=== PATIENT | female | born 1965 | race Caucasian/White ===

== ENCOUNTER 2021-01-23 12:13 | Outpatient (CLI) | payer OTHER, SELFPAY ==
--- NOTE | ~2021-01-23 | XR_ITS ---
EXAMINATION: XR knee RT 3V DATE: 01/23/2021 12:53 INDICATION: Right knee pain. TECHNIQUE: 3 views of right knee were obtained. COMPARISON: None. FINDINGS: Bone alignment is normal. No fracture. There is mild osteoarthritis of medial and patellofe moral compartments. No knee joint effusion. IMPRESSION: 1. Mild right knee osteoarthritis. Reviewed, dictated and finalized at location A. [employer]
== END 2021-01-23 12:14 ==
PROVIDERS: PCP Family Medicine; Visit Provider Physician Assistant
DX: M17.11 Unilateral primary osteoarthritis, right knee (principal)
CPT/HCPCS: 73562

== ENCOUNTER → 2022-03-22 13:45 | Outpatient (CLI) | payer OTHER, SELFPAY ==
--- NOTE | ~2022-03-22 | XR_ITS ---
EXAMINATION: XR thoracic spine 3V DATE: 03/22/2022 14:08 INDICATION: Dorsalgia, unspecified TECHNIQUE: AP, lateral and lateral swimmer's views of the thoracic spine were obtained. COMPARISON: None. FINDINGS: There is dextrocurvature of the upper thoracic spine. No fracture is identified. Bone align ment is normal. There is moderate loss of intervertebral disc space height at multiple levels in the thoracic spine. There is mild anterior wedging of several midthoracic vertebral bodies, likely physio logic. Small degenerative osteophytes project from the anterior endplates of multiple vertebral leeann s. IMPRESSION: 1. Moderate thoracic spondylosis without acute findings. Reviewed, dictated and finalized at location F.
== END ==
PROVIDERS: PCP Physician Assistant; Visit Provider Physician Assistant
DX: M47.814 Spondylosis without myelopathy or radiculopathy, thoracic region (principal)
CPT/HCPCS: 72072

== ENCOUNTER 2022-03-27 12:38 | Outpatient (CLI) | payer OTHER, SELFPAY ==
--- NOTE | ~2022-03-27 | CT_ITS ---
EXAMINATION:CT lung screening DATE: 03/27/2022 13:27 INDICATION: Personal history of tobacco dependence. Current smoker with 30 pack year history. TECHNIQUE: Computed tomography (CT) of the chest was performed without intravenous contrast. Automate d exposure control and iterative reconstruction technique were employed. The dose-length product (DLP ) was 60.24 mGy-cm. COMPARISON: CT abdomen and pelvis 06/21/2011 FINDINGS: There is mild emphysema. There is mild scarring at the lung apices. There is mild scarring in paraspinal right lower lobe. No pleural effusion. The heart size is normal. There are coronary art rosa isela calcifications. No pericardial effusion. There are changes of cholecystectomy. There is mild regional marketing director aria anterior wedging of multiple vertebral bodies. There is moderate thoracic spondylosis. There is d extroscoliosis of thoracic spine. IMPRESSION: 1. Lung-RADS category 2: Benign appearance or behavior. Continue annual screening with noncontrast lo w-dose chest CT in 12 months. Reviewed, dictated and finalized at location B. IMPRESSION: 1. Lung-RADS category 2: Benign appearance or behavior. Continue annual screeni ng with noncontrast low-dose chest CT in 12 months.
== END 2022-03-27 12:39 | disposition home or self-care (01) ==
PROVIDERS: PCP Physician Assistant; Visit Provider Physician Assistant
DX: Z12.2 Encounter for screening for malignant neoplasm of respiratory organs (principal); Z87.891 Personal history of nicotine dependence
CPT/HCPCS: 71271

== ENCOUNTER 2022-04-26 00:56 | Day surgery (SDC) | payer OTHER, SELFPAY ==
[2022-04-09 16:46] VITALS: BMI 22.2
--- NOTE | 2022-04-26 07:19 | PM.HPGS ---
History of Present Illness History of Present Illness Consent: Risks, benefits, and alternatives have been discussed and questions answered. Patient agrees to proceed with procedure. Chief complaint: neoplasm screening Narrative: Vanessa Calero is a 57 year old female Referred for colon cancer screening. Review of Systems Review of Systems: All systems reviewed & are unremarkable except as noted in HPI and below PMFSH Past Medical History Medical History Irritable bowel syndrome (IBS) Surgical History Surgical History History of cholecystectomy Family History Family History (Updated 03/20/22 @ 11:37 by Oralia Watson CMA) Father Hypertension Family history of elevated blood lipids Skin cancer Mother Family history of diabetes mellitus in first degree relative Family history of coronary artery disease Hypertension Sibling Pancreatitis Congestive heart failure Social History Social History Smoking packs per day: 0.5 Smoking cigarettes per day: 10.0 Years smoked: 20 Smoking pack-years: 10.00 Smoking status: Current every day smoker Tobacco type: cigarettes Alcohol intake: never Substance use: never Substance use type: does not use Living arrangements: with family Gender identity (if verbalized by the patient): Female Spiritual care concerns: No Meds Home Medications and Allergies Home Medications Medication Instructions Recorded Confirmed Type cholecalciferol (vitamin D3) 125 125 mcg PO DAILY 03/20/22 04/09/22 History mcg (5,000 unit) capsule mecobalamin (vitamin B12) 1,000 1,000 mcg PO DAILY 03/20/22 04/09/22 History mcg chewable tablet Allergies Allergy/AdvReac Type Severity Reaction Status Date / Time No Known Allergies Allergy Unknown Verified 04/26/22 08:06 Exam Resp: Auscultation: clear to auscultation bilaterally Cardio: Rate: regular rate Rhythm: regular rhythm GI: GI Palp: Yes Soft to palpation and No Tenderness to palpation present (GI) Assessment and Plan Assessment and plan (1) Colon cancer screening: Code(s): Z12.11 - Encounter for screening for malignant neoplasm of colon Status: Acute Assessment and Plan: Colonoscopy with possible biopsy or polypectomy or cautery or injection of substances.
[2022-04-26 08:07] VITALS: BP 132/86; PULSE 104; RESP 18; TEMP 36.6; O2SAT 100; BMI 21.5
[2022-04-26] MEDS: LACTATED RINGERS 1,000 ML 150 ML IV CONT (08:19)
--- NOTE | 2022-04-26 08:44 | P.PNAN_ITS ---
Anes - Initial Pre Proc Eval Procedure: Operation Date: 04/26/22 09:00 Proposed Procedures p Screening Colonoscopy - Eleno Parish MD Date/Time: 04/26/22 08:44 Surgeon: Eleno Parish MD Pre Op Diagnosis: neoplasm screening Patient Data Age: 57 Gender: F Height: 1.68 m Weight: 60.5 kg Last Vital Signs Temp 97.8 F 04/26/22 08:07 Pulse 104 H 04/26/22 08:07 Resp 18 04/26/22 08:07 BP 132/86 04/26/22 08:07 Pulse Ox 100 04/26/22 08:07 O2 Del Method Room Air 04/26/22 08:07 Allergies Allergy/AdvReac Type Severity Reaction Status Date / Time No Known Allergies Allergy Unknown Verified 04/26/22 08:06 Home Medications Medication Instructions Recorded Confirmed Type cholecalciferol (vitamin D3) 125 125 mcg PO DAILY 03/20/22 04/26/22 History mcg (5,000 unit) capsule mecobalamin (vitamin B12) 1,000 1,000 mcg PO DAILY 03/20/22 04/26/22 History mcg chewable tablet Patient hx anesthesia problems: none Family hx anesthesia problems: none Results Review: All pre-operative results and documents have been reviewed as part of the pre- operative evaluation. [facility] Past Medical History Medical History Irritable bowel syndrome (IBS) Surgical History Surgical History History of cholecystectomy Family History Family History (Updated 03/20/22 @ 11:37 by Oralia Watson CMA) Father Hypertension Family history of elevated blood lipids Skin cancer Mother Family history of diabetes mellitus in first degree relative Family history of coronary artery disease Hypertension Sibling Pancreatitis Congestive heart failure Social History Social History Smoking packs per day: 0.5 Smoking cigarettes per day: 10.0 Years smoked: 20 Smoking pack-years: 10.00 Smoking status: Current every day smoker Tobacco type: cigarettes Alcohol intake: never Substance use: never Substance use type: does not use Living arrangements: with family Gender identity (if verbalized by the patient): Female Spiritual care concerns: No Anes - Eval Final PreProcedure Day of Procedure 04/26/22 08:44 Patient weight: normal Heart: regular rate and rhythm Lungs: clear to auscultation Airway: Mallampati scale class II Neurological: alert and oriented Last oral intake: >/= 8 hours ASA classification: II Emergent: no Anesthetic plan: proceed Anesthesia type and monitoring: general GIVS and standard monitoring Results Review: All pre-operative results and documents have been reviewed as part of the pre- operative evaluation. Informed Consent: The patient's anesthetic plan and its attendant risks and benefits were discussed with the patient/family/POA. Questions were solicited and answers provided to the satisfaction of the patient/family/POA.
[2022-04-26] MEDS: SIMETHICONE ORAL SUSPENSION 20 MG/0.3 ML 30 ML BOTTLE 0.6 ML IRRIGATION (09:05)
[2022-04-26 09:15] VITALS: BP 121/71; PULSE 86; RESP 15; O2SAT 100
[2022-04-26 09:25] VITALS: BP 125/78; PULSE 85; RESP 19; O2SAT 100
[2022-04-26 09:35] VITALS: BP 131/91; PULSE 83; RESP 15; O2SAT 100
== END 2022-04-26 09:40 | disposition home or self-care (01) ==
PROVIDERS: PCP Family Medicine; Visit Provider Internal Medicine Gastroenterology
PROC: 0DJD8ZZ Inspection of Lower Intestinal Tract, Via Natural or Artificial Opening Endoscopic (ICD-10-PCS; CPT 45378; principal; 2022-04-26 09:00)
DX: Z12.11 Encounter for screening for malignant neoplasm of colon (principal); F17.210 Nicotine dependence, cigarettes, uncomplicated
CPT/HCPCS: G0121; J2704; J7120

== ENCOUNTER → 2022-05-16 13:23 | Outpatient (CLI) | payer OTHER, SELFPAY ==
--- NOTE | ~2022-05-16 | MM_ITS ---
EXAMINATION: MM screening lona BI w azucena HISTORY: Screening mammogram TECHNIQUE: Craniocaudal and mediolateral oblique 3-D tomosynthesis images were obtained and synthetic 2-D images were generated. CAD analysis was submitted and interpreted. COMPARISON: No prior mammogram is available for comparison at this institution. BREAST PARENCHYMAL COMPOSITION: There are scattered areas of fibroglandular density. FINDINGS: There is no evidence of suspicious mass, calcification, or architectural distortion to sugg est malignancy in either breast. There has been no suspicious interval change. IMPRESSION: 1. No mammographic evidence of malignancy. 2. Recommend routine screening mammography in one year. BI-RADS Category 1: Negative Reviewed, dictated and finalized at location A.
== END ==
PROVIDERS: PCP Family Medicine; Visit Provider Physician Assistant
DX: Z12.31 Encounter for screening mammogram for malignant neoplasm of breast (principal)
CPT/HCPCS: 77063; 77067

== ENCOUNTER 2023-08-17 08:06 | Emergency (ER) | payer OTHER, SELFPAY ==
--- NOTE | 2023-08-17 08:07 | ED.EAR ---
HPI - Ear Problem General Chief complaint: Ear Stated complaint: Lt Ear Irritation Time Seen by Provider: 08/17/23 08:15 Source: patient, RN notes reviewed and old records reviewed Mode of arrival: ambulatory Limitations: no limitations History of Present Illness HPI Narrative: 58-year-old female presents to the [facility] with complaints of left ear pain and noticed blood this morning. Started with pain yesterday and a popping sensation. Denies fevers. Reports having COVID on June 25 states she has had some upper respiratory symptoms since. Related Data Home Medications Medication Instructions Recorded Confirmed cholecalciferol (vitamin D3) 125 125 mcg PO DAILY 03/20/22 08/17/23 mcg (5,000 unit) capsule mecobalamin (vitamin B12) 1,000 1,000 mcg PO DAILY 03/20/22 08/17/23 mcg chewable tablet Allergies Allergy/AdvReac Type Severity Reaction Status Date / Time No Known Allergies Allergy Unknown Verified 08/17/23 08:07 Review of Systems Review of Systems: All systems reviewed & are unremarkable except as noted in HPI and below Constitutional: Constitutional: Reports no additional constitutional complaints Eyes: Eyes: Reports no additional eye complaints ENT: Reports as per HPI and Reports otalgia (left) Cardiovascular: Cardiovascular: Reports no additional cardiovascular complaints, Denies chest pain and Denies dyspnea Respiratory: Respiratory: Reports no additional respiratory complaints, Denies chest congestion, Denies cough and Denies dyspnea Gastrointestinal: Gastrointestinal: Reports no additional gastrointestinal complaints, Denies abdominal pain, Denies nausea and Denies vomiting Musculoskeletal: Musculoskeletal: Reports no additional musculoskeletal complaints Integumentary/Breasts: Skin/Breast: Reports system reviewed and no additional complaints, except as docu Neurologic: Reports system reviewed and no additional complaints, except as documented Psychiatric: Psychiatric: Reports no additional psychiatric complaints Allergic/Immunologic: Allergic/Immunologic: Reports no additional allergic/immunologic complaints [facility] Past Medical History Medical History Irritable bowel syndrome (IBS) Surgical History Surgical History History of cholecystectomy Family History Family History Father Hypertension Family history of elevated blood lipids Skin cancer Mother Family history of diabetes mellitus in first degree relative Family history of coronary artery disease Hypertension Sibling Pancreatitis Congestive heart failure Social History Social History Smoking packs per day: 0.5 Smoking cigarettes per day: 10.0 Years smoked: 20 Smoking pack-years: 10.00 Smoking status: Current every day smoker Tobacco type: cigarettes Alcohol intake: never Substance use: never Substance use type: does not use Lack of Transportation: No Lack of Food: Never True Current Housing: I Have Housing Concerned About Future Housing: No Difficulty Paying Gas/Electric Bills: YES Difficulty Paying for Meds: No Currently Unemployed: No Education: High School Diploma/GED Difficulty w/ Childcare or Family Care: No Living arrangements: with family Occupation/Education: occupation Gender identity (if verbalized by the patient): Female Spiritual care concerns: No Comments At the time of my signature, I reviewed and agree with the nursing past medical, surgical, social, and family history. There is no relevant family history pertinent to the patient complaint. Exam Const: General: cooperative, healthy appearing, comfortable, no acute distress, well developed, alert and well nourished Nutritional Appearance: well nourished Orientation/co
[2023-08-17 08:15] VITALS: BP 131/91; PULSE 83; RESP 18; TEMP 36.5; O2SAT 100
== END 2023-08-17 08:28 | disposition home or self-care (01) ==
PROVIDERS: Emergency Provider Nurse Practitioner; PCP Family Medicine
DX: H60.502 Unspecified acute noninfective otitis externa, left ear (principal); S00.412A Abrasion of left ear, initial encounter; H65.02 Acute serous otitis media, left ear; F17.210 Nicotine dependence, cigarettes, uncomplicated; X58.XXXA Exposure to other specified factors, initial encounter
CPT/HCPCS: 99213; G0463

== ENCOUNTER 2025-04-10 03:14 | Inpatient (IN) | payer OTHER, SELFPAY ==
[2025-04-10] VITALS (30 sets, daily range): BP systolic 123–146; BP diastolic 73–96; PULSE 89–117; RESP 14–21; TEMP 36.4–37.4; O2SAT 90–100; BMI 23.3
--- NOTE | 2025-04-10 | ECHO_ITS ---
Patient Info Name: Vanessa Calero Age: 60 years : 1965 Gender: Female Ht: 63 in Wt: 140 lbs BSA: 1.69 m2 HR: 91 bpm BP: 133 / 80 mmHg Heart Rhythm: Sinus Rhythm Technical Quality: Fair Exam Date: 04/10/2025 8:25 AM Patient Status: I Admit Date: 04/10/2025 Exam Type: CA echo doppler color flow Complete two-dimensional, color flow and Doppler transthoracic echocardiogram is performed. Staff Referring Physician: Trevor Edouard Siderographist: Steff Boo Attending Provider: John Martinez Summary 1. Complete two-dimensional, color flow and Doppler transthoracic echocardiogram is performed. 2. Left ventricular chamber dimension is normal. 3. Left ventricular systolic function is severely reduced, estimated at 30-35. 4. There is mildly increased left ventricular wall thickness. 5. The left ventricular diastolic function is grade I diastolic dysfunction. 6. The apex, mid inferoseptal, and mid anteroseptal are akinetic. 7. The mid inferior wall, mid anterior wall, mid anterolateral wall, and mid inferolateral wall are hypokinetic. 8. Left atrial chamber dimension is mildly enlarged. 9. There is mild mitral valve regurgitation. 10. The mitral valve has thickened leaflets. 11. There is moderate tricuspid valve regurgitation. 12. Mild pulmonary hypertension, estimated pulmonary arterial systolic pressure is 41 mmHg. Left Ventricle Left ventricular chamber dimension is normal. Left ventricular systolic function is severely reduced, estimated at 30-35. There is mildly increased left ventricular wall thickness. The left ventricular diastolic function is grade I diastolic dysfunction. The apex, mid inferoseptal, and mid anteroseptal are akinetic. The mid inferior wall, mid anterior wall, mid anterolateral wall, and mid inferolateral wall are hypokinetic. All other medrano appear normal. Right Ventricle Right ventricular chamber dimension is normal. Right ventricular systolic function is normal. Left Atria Left atrial chamber dimension is mildly enlarged. Right Atria Right atrial chamber dimension is normal. Atrial Septum Intact interatrial septum visualized by color flow imaging. Aortic Valve The aortic valve is trileaflet. There is mild aortic valve sclerosis. There is no aortic valve stenosis. There is trace aortic valve regurgitation. Pulmonic Valve The pulmonic valve is normal. There is no pulmonic valve stenosis. There is trace pulmonic regurgitation. Mitral Valve The mitral valve has thickened leaflets. There is no mitral valve stenosis. There is mild mitral valve regurgitation. Tricuspid Valve The tricuspid valve leaflets are normal. There is no significant tricuspid valve stenosis. There is moderate tricuspid valve regurgitation. Mild pulmonary hypertension, estimated pulmonary arterial systolic pressure is 41 mmHg. Pericardium/Pleural The pericardium appears normal. There is no pericardial effusion. Inferior Vena Cava Normal inferior vena cava with <50% collapse upon inspiration consistent with elevated right atrial pressure, 10 mmHg. Aorta The aortic root size at the sinus of Valsalva is normal. Left Ventricular Outflow Tract Name Value Normal LVOT 2D LVOT Diameter 2.0 cm LVOT Doppler LVOT Peak Velocity 67 cm/s LVOT Peak Gradient 2 mmHg LVOT Mean Gradient 1 mmHg LVOT VTI 12 cm LVOT VTI/AV VTI Ratio 0.8 LVOT Stroke Volume 37 ml LVOT CO 3.6 l/min LVOT CI 2.1 l/min/m2 Pulmonic Valve Name Value Normal RVOT Doppler RVOT Peak Velocity 47 cm/s RVOT Peak Gradient 1 mmHg PV Doppler PV Peak Velocity 51 cm/s PV Peak Gradient 1 mmHg Mitral Valve Name Value Normal MV Diastolic Function MV E Peak Velocity 39 cm/s MV A Peak Velocity 67 cm/s MV E/A 0.6 MV Decel Time (PW) 180 ms MV Annular TDI MV E/e' (Septal) 7.3 MV E/e' (Lateral) 4.0 MV E/e' (Average) 5.6 Tricuspid Valve Name Value Normal TV Regurgitation Doppler TR Peak Velocity 280 cm/s TR Peak Gradient 27 mmHg Estimated PAP/RSVP RA Pressure 10 mmHg <=5 PA Systolic Pressure 41 mmHg <36 RV Systolic Pressure 41 mmHg <36 TV Annular TDI TV Lateral Gayathri s' Velocity 16.9 cm/s >=9.5 Aortic Valve Name Value Normal AV Doppler AV Peak Velocity 80 cm/s AV Peak Gradient 0 mmHg AV Mean Gradient 0 mmHg AV VTI 15 cm AV Area (Cont Eq VTI) 2.5 cm2 >=3.0 AV Area (Cont Eq Malachi) 2.7 cm2 AV DI (Malachi) 0.83 AV Regurgitation 2D LVOT Area 3.2 cm2 Ventricles Name Value Normal LV Dimensions 2D/MM IVS Diastolic Thickness (2D) 1.1 cm 0.6-1.0 LVID Diastole (2D) 4.5 cm 3.8-5.2 LVIW Diastolic Thickness (2D) 0.9 cm 0.6-0.9 LVID Systole (2D) 3.2 cm 2.2-3.5 LVOT Diameter 2.0 cm LV Mass (2D Cubed) 151.17 g 67.00-162.00 LV Mass Index (2D Cubed) 89 g/m2 43-95 Relative Wall Thickness (2D) 0.41 <=0.42 LV Fractional Shortening/Ejection Fraction 2D/MM LV Fractional Shortening (2D) 29 % 27-45 LV EF (2D Teichholz) 57 % LV Diastolic Volume (4C MOD) 86 ml LV EF (4C MOD) 43 % LV Diastolic Volume (2C MOD) 101 ml LV EF (2C MOD) 49 % LV Diastolic Volume (BP MOD) 96 ml 46-106 LV Diastolic Volume Index (BP MOD) 57 ml/m2 29-61 LV Systolic Volume (BP MOD) 51 ml 14-42 LV Systolic Volume Index (BP MOD) 30 ml/m2 8-24 LV EF (BP MOD) 46 % 54-74 LV Diastolic Length (4C) 6.8 cm LV Systolic Length (4C) 6.7 cm LV Stroke Volume (4C MOD) 37 ml Atria Name Value Normal LA Dimensions LA Volume (4C A-L) 57 ml LA Volume (BP A-L) 48 ml RA Dimensions RA Systolic Major Anthony Length (4C) 4.2 cm 2.2-2.8 RA Area (4C) 11.0 cm2 <=18.0 Wall Motion Scoring Wall Motion Scoring Index: 2.06 Report Signatures
--- NOTE | ~2025-04-10 | XR_ITS ---
EXAMINATION: XR chest 2V DATE: 04/10/2025 03:50 INDICATION: Chest pain TECHNIQUE: PA and lateral views of the chest were obtained. COMPARISON: Chest CT dated 03/27/2022 FINDINGS: Mild hyperexpansion lungs consistent with emphysema which is better appreciated on prior CT. Symmetri c nipple shadows project over the bilateral lower lungs. No airspace opacities, pulmonary edema, pleu ral effusion or pneumothorax. The cardiomediastinal silhouette is normal. Cholecystectomy clips in ri ght upper quadrant. Mild S-shaped thoracic scoliosis with moderate spondylosis. IMPRESSION: 1. Mild emphysema. No acute cardiopulmonary disease. Reviewed, dictated and finalized at location A.
--- NOTE | 2025-04-10 03:14 | ECG_ITS ---
Test Date: 2025-04-10 03:20:16 Measurements Intervals [place] Rate: 110 P: 57 SD: 100 QRS: 19 QRSD: 140 T: 85 QT: 329 QTc: 446 Interpretive Statements SINUS TACHYCARDIA WITH SHORT SD INTERVAL POSSIBLE LEFT ATRIAL ENLARGEMENT [-0.1mV P WAVE IN V1/V2] RIGHT BUNDLE BRANCH BLOCK [120+ ms QRS DURATION, UPRIGHT V1, 40+ ms S IN I/aVL/V4/V5/V6] ANTERIOR MYOCARDIAL INFARCTION , PROBABLY RECENT [40+ ms Q WAVE AND/OR ST/T ABNORMALITY IN V3/V4] NONDIAGNOSTIC ST ABNORMALITY ABNORMAL ECG No previous ECG available for comparison Electronically Signed On 04-10-2025 08:11:32 CDT by Олег Goodwin M.D.
--- OUTSIDE RECORDS SUMMARY | 2025-04-10 03:15 | XMS_ITS | Clinical Summary ---
Author Organization [facility] Address [address] [place] [address] Care Team Providers Care Traveling Buyer Name Role Phone Vimal Steele MD Primary Care Provider Source Comments [facility],non-owned Affiliates and Associated Physician Practices is amultiple site organization consisting of ambulatory clinics and hospital sitesin [place], [place], [place] and [place]. This disclosure is being madepursuant to the Care Everywhere program and may not contain all information available regarding this patient. Last updated 18.[facility] Allergies No known active allergies Medications * Be aware that medications may not be up to date on this document. Alwaysverify current medications with the patient. No known medications Social History Tobacco Use Types Packs/Day Years Used Date Smoking Tobacco: Every Day Smokeless Tobacco: Never Alcohol Use Standard Drinks/Week Comments Never 0 (1 standard drink = 0.6 oz pur e alcohol) AUDIT-C Answer Date Recorded Frequency of Alcohol Consumption Never 01/27/2020 Average Number of Drinks Not on file 020 Frequency of Binge Drinking Not on file 02/2020 Comments No Sex and Gender Information Value Date Recorded Sex Assigned at Not on file Legal Sex Female 10:54 AM [employer] Gender Identity Not on file Sexual Orientation Not on file Last Filed Vital Signs Vital Sign Reading Time Taken Comments Blood Pressure 120/76 01/27/2020 3:05 PM [employer] Pulse 80 01/27/2020 3:05 PM [employer] Temperature 37 C (98.6 F) 01/27/2020 3:05 PM [employer] Respiratory Rate 16 01/27/2020 3:05 PM [employer] Oxygen Saturation 98% 01/27/2020 3:05 PM [employer] Inhaled Oxygen Concentration - - Weight 61.2 kg (135 lb) 01/27/2020 3:05 PM [employer] Height 167.6 cm (5' 6 ) 01/27/2020 3:05 PM [employer] Body Mass Index 21.79 01/27/2020 3:05 PM [employer] Plan of Treatment Health Maintenance Due Date Last Done Comments COLOGUARD (AGES 45-75) - COL ON CA SCREENING 1965 COLON MONITORING 1965 COLONOSCOPY - COLON CA SCREENING 1966 CT COLONOGRAPHY - COLON CA SCREENING 1965 Colorectal Cancer Screening 1965 FIT - COLON CA SCREENING 1965 FLEX SIG - COLON CA SCREENING 1965 LIPID TESTING 1965 MAMMOGRAM 1965 HIV SCREENING 1981 HEPATITIS C SCREENING 01/07/1984 DTAP/TDAP/TD VACCINES (1 - Tdap) 1985 HEPATITIS B VACCINE (1 of 3 - 19+ 3-dose series) 1985 PNEUMOCOCCAL VACCINE 50+ (1 of 1 - PCV) 2016 ZOSTER VACCINE (1 of 2) 2016 COVID-19 VACCINE (1 - 2023-2 5 season) 2024 DEPRESSION SCREENING 11/25/2024 INFLUENZA VACCINE (Season Ended) 2025 HIB VACCINE Aged Out No longer eligi ble based on patient's age to complete this topic HPV VACCINE Aged Out No longer eligi ble based on patient's age to complete this topic MENINGOCOCCAL (Group B) VACC INE SHARED DECISION-MAKING Aged Out No longer eligibl e based on patient's age to complete this topic MENINGOCOCCAL GROUPS A/C/Y/W VACCINE Aged Out No longer eligible b ased on patient's age to complete [place] [id number] Care Teams Traveling Buyer Relationship Specialty Start Date End Date Vimal Steele MD [address] [place] [address] PCP - General Family Medicine 01/27/20
--- NOTE | 2025-04-10 03:23 | ECG_ITS ---
Test Date: 2025-04-10 03:27:37 Measurements Intervals [place] Rate: 99 P: 74 [place]: 129 QRS: 60 QRSD: 140 T: 87 QT: 358 QTc: 460 Interpretive Statements SINUS RHYTHM POSSIBLE LEFT ATRIAL ENLARGEMENT [-0.1mV P WAVE IN V1/V2] RIGHT BUNDLE BRANCH BLOCK [120+ ms QRS DURATION, UPRIGHT V1, 40+ ms S IN I/aVL/V4/V5/V6] ANTERIOR MYOCARDIAL INFARCTION , PROBABLY RECENT [40+ ms Q WAVE AND/OR ST/T ABNORMALITY IN V3/V4] NONDIAGNOSTIC ST ABNORMALITY ABNORMAL ECG Compared to ECG 04/10/2025 03:20:16 Sinus tachycardia no longer present Short [place] interval no longer present Myocardial infarct finding still present Electronically Signed On 04-10-2025 08:12:07 CDT by Олег Goodwin M.D.
[2025-04-10 03:42] LABS: Basophils Absolute Auto 0.1 K/mm3 (0.0-0.1); Basophils Percent Auto 0.6 % (0.2-1.2); Eosinophils Absolute Auto 0.3 K/mm3 (0-0.3); Eosinophils Percent Auto 1.3 % (0-4.4); Hematocrit 43.8 % (37.0-47.0); Immature Granulocyte Absolute 0.08 K/mm3 (0.00-0.031); Immature Granulocyte Percent A 0.4 % (0-0.5); Lymphocytes Absolute Auto 3.66 K/mm3 (0.9-3.2); Lymphocytes Percent Auto 18.8 % (18.3-44.2); Mean Corpuscular Hemoglobin 30.6 pg (26-34); Mean Corpuscular Volume 95.6 fl (80-100); Mean Platelet Volume 8.6 fl (7.4-10.4); Monocytes Absolute Auto 1.2 K/mm3 (0.1-0.6); Neutrophils Absolute Auto 14.2 K/mm3 (1.3-6.7); Neutrophils Percent Auto 72.9 % (45.5-73.1); Platelet Count Result 289 k/mm3 (150-375); Red Blood Count 4.58 M/mm3 (4.2-5.4); White Blood Count 19.5 K/mm3 (4.5-10.0)
--- NOTE | 2025-04-10 03:46 | PC.NURSE ---
Attempted to start IV and assessment. Pt was taken to X-ray before RN could.
[2025-04-10 03:52] LABS: Alanine Aminotransferase 23 U/L (6-35); Albumin Level 4.6 g/dL (3.5-5.1); Alkaline Phosphatase 92 U/L (38-126); Anion Gap 10 mmol/L (4-12); Aspartate Amino Transferase 41 U/L (14-36); Bilirubin,Total 0.6 mg/dL (0.2-1.3); Blood Urea Nitrogen 14 mg/dL (7-17); Calcium 9.2 mg/dL (8.4-10.2); Carbon Dioxide 24 mmol/L (22-30); Chloride 106 mmol/L (98-107); Estimated CRCL calculation 52 ml/min; Estimated Glomerular Filt Rate > 60; Glucose 170 mg/dL (65-110); Lipase 165 U/L (23-300); Potassium 3.7 mmol/L (3.4-5.0); Sodium 140 mmol/L (137-145)
[2025-04-10 04:03] LABS: Partial Thromboplastin Time 24.7 Seconds (22.3-36.8); Prothrombin Time 13.1 Seconds (11.1-14.7)
[2025-04-10 04:05] LABS: Troponin I 0.674 ng/mL (0.000-0.034)
[2025-04-10] MEDS: ASPIRIN 81 MG CHEWABLE TABLET 324 MG PO (04:07)
--- OUTSIDE RECORDS SUMMARY | 2025-04-10 04:26 | XMS_ITS | Clinical Summary ---
Author Organization [facility] Address [address] [place] [address] Care Team Providers Care Business And Services Instructor Name Role Phone Vimal Steele MD Primary Care Provider [phone] Source Comments [facility],non-owned Affiliates and Associated Physician Practices is amultiple site organization consisting of ambulatory clinics and hospital sitesin [place], [place], [place] and [place]. This disclosure is being madepursuant to the Care Everywhere program and may not contain all information available regarding this patient. Last updated 18.[facility] Allergies No known active allergies Medications * [...] on file Legal Sex Female 10:54 AM [employer] Gender Identity Not on file Sexual Orientation Not on file Last Filed Vital Signs Vital Sign Reading Time Taken Comments Blood Pressure 120/76 01/27/2020 3:05 PM [employer] Pulse 80 01/27/2020 3:05 PM [employer] Temperature 37 C (98.6 F) 01/27/2020 3:05 PM [employer] Respiratory Rate 16 01/27/2020 3:05 PM [employer] Oxygen Saturation 98% 01/27/2020 3:05 PM [employer] Inhaled Oxygen Concentration - - Weight 61.2 kg (135 lb) 01/27/2020 3:05 PM [employer] Height 167.6 cm (5' 6 ) 01/27/2020 3:05 PM [employer] Body Mass Index 21.79 01/27/2020 3:05 PM [employer] Plan of Treatment Health Maintenance Due Date [...] patient's age to complete this topic Insurance * Guarantor: Vanessa Calero Account Type Relation to Patient Date of Phone Billing Address Personal/Family Self 1965 [address] [place] [address] [place] [address] Care Teams Business And Services Instructor Relationship Specialty Start Date End Date Vimal Steele MD [address] [place] [address] PCP - General Family Medicine 01/27/20
[2025-04-10 04:30] LABS: Basophils Absolute Auto 0.1 K/mm3 (0.0-0.1); Basophils Percent Auto 0.5 % (0.2-1.2); Eosinophils Absolute Auto 0.1 K/mm3 (0-0.3); Eosinophils Percent Auto 0.6 % (0-4.4); Hematocrit 42.9 % (37.0-47.0); Hemoglobin 13.7 g/dL (12.0-15.0); Immature Granulocyte Absolute 0.09 K/mm3 (0.00-0.031); Immature Granulocyte Percent A 0.5 % (0-0.5); Lymphocytes Absolute Auto 3.03 K/mm3 (0.9-3.2); Lymphocytes Percent Auto 17.3 % (18.3-44.2); Mean Corpuscular HGB Conc 31.9 g/dl (32-36); Mean Corpuscular Hemoglobin 30.6 pg (26-34); Mean Platelet Volume 8.8 fl (7.4-10.4); Monocytes Absolute Auto 0.9 K/mm3 (0.1-0.6); Monocytes Percent Auto 5.1 % (2.6-8.5); Neutrophils Absolute Auto 13.3 K/mm3 (1.3-6.7); Platelet Count Result 306 k/mm3 (150-375); Red Blood Count 4.47 M/mm3 (4.2-5.4); Red Cell Distribution Width 13.1 % (11.5-14.5); White Blood Count 17.5 K/mm3 (4.5-10.0)
[2025-04-10] MEDS: HEPARIN SODIUM 5,000 UNITS/ML VIAL 3500 UNITS IV PUSH (04:31)
[2025-04-10] MEDS: HEPARIN SOD/D5W 100 UNITS/ML 25,000 UNITS/250 ML BAG 7 UNITS IV CONT (04:32)
--- NOTE | 2025-04-10 04:35 | ED_ITS ---
HPI - Chest Pain General Chief Complaint: Chest Pain Stated Complaint: chest pain Time Seen by Provider: 04/10/25 03:37 History of Present Illness HPI narrative: 60-year-old female with no pertinent past medical history aside from smoking. She presents to the ER with complaints of chest discomfort radiating towards her jaw and feeling indigestion with pressure in her chest. No shortness of breath but she states she feels nauseous and the pain got worse today. Symptoms going on for several days. No history of GA or any history of cardiac disease to her knowledge. No history of hypertension, hyperlipidemia or any other medical problems. She is not taking medications. Denies trying take any medications at home. Related Data Home Medications Medication Instructions Recorded Confirmed Last Taken Type cholecalciferol (vitamin D3) 125 125 mcg PO DAILY 03/20/22 04/10/25 Unknown History mcg (5,000 unit) capsule mecobalamin (vitamin B12) 1,000 1,000 mcg PO DAILY 03/20/22 04/10/25 Unknown History mcg chewable tablet Allergies Allergy/AdvReac Type Severity Reaction Status Date / Time No Known Allergies Allergy Unknown Verified 08/17/23 08:07 Review of Systems 2 Review of Systems: As [facility] Past Medical History Medical History Irritable bowel syndrome (IBS) Surgical History Surgical History History of cholecystectomy Family History Family History (Updated 04/10/25 @ 06:35 by Oralia Rob RN) Father Skin cancer Family history of elevated blood lipids Hypertension Afib Mother Family history of diabetes mellitus in first degree relative Family history of coronary artery disease Hypertension Sibling Congestive heart failure Pancreatitis Social History Social History Smoking packs per day: 0.5 Smoking cigarettes per day: 10.0 Years smoked: 20 Smoking pack-years: 10.00 Smoking status: Current every day smoker Tobacco type: cigarettes Alcohol intake: former Substance use: never Substance use type: does not use Do You Feel Safe in your Home?: Yes Lack of Transportation: No Lack of Food: Never True Current Housing: I Have Housing Concerned About Future Housing: No Difficulty Paying Gas/Electric Bills: YES Difficulty Paying for Meds: No Currently Unemployed: No Education: High School Diploma/GED Difficulty w/ Childcare or Family Care: No Living arrangements: with family Occupation/Education: occupation Gender identity (if verbalized by the patient): Female Spiritual care concerns: No Exam 2 Narrative: GENERAL: Uncomfortable and nauseous but not any acute physical distress. HEAD: [Normocephalic, atraumatic.] EYES: [PERRLA and EOMI.] ENT: Nares clear, no rhinorrhea or epistaxis. Mucous membranes moist. NECK: Supple. CHEST: [Clear to auscultation. No respiratory distress.] HEART: [Regular rate and rhythm]. No murmur heard. [Normal peripheral pulses.] ABDOMEN: [Soft, nondistended], [nontender], [No rigidity or guarding] EXTREMITIES: Normal range of motion. [No edema.] SKIN: Warm, dry, no rash. NEURO: [No focal deficits]. Alert and oriented [x3.] PSYCH: [Normal mood and affect.] Course Vital Signs Vital signs: Vital Signs Pulse Rate 100 04/10/25 03:59 Pulse Oximetry 100 04/10/25 03:59 Oxygen Delivery Room Air 04/10/25 03:59 Temperature 36.4 C 04/10/25 06:31 Pulse Rate 95 04/10/25 06:31 Respiratory Rate 21 H 04/10/25 06:31 Blood Pressure 133/80 04/10/25 06:31 Pulse Oximetry 97 04/10/25 06:31 Oxygen Delivery Room Air 04/10/25 06:11 MDM - Chest Pain MDM Narrative Medical decision making narrative: 60-year-old female presenting to the emergency department with chest pain and chest pressure radiating towards her jaw. Symptoms going on for several days but worse today associated with nausea. Her EKG in triage was concerning for right bundle-branch block with ST elevations in V1 and V2. I discussed the case with the on-call [place] faller Dr Alves immediately based on this EKG read and he had no acute concerns for STEMI but recommendations to initiate heparin and workup for ACS nonetheless. Laboratory studies were drawn including serial troponins, EKG, chest x-ray was ordered. She was given morphine and Zofran this as well as Pepcid for symptom control. Patient's symptomatology could be ACS, pneumonia, pneumothorax, myocarditis, pericarditis, musculoskeletal chest pain. Patient's laboratory studies showed leukocytosis of 19.5, no anemia. Normal platelet count. Electrolytes unremarkable. Slightly hyperglycemic, normal LFTs. Troponin is largely elevated 0.674, delta troponin pending. Negative lipase. Chest x-ray on my interpretation shows no pneumonia or acute cardiopulmonary pathology such as effusions or pneumothorax. No cardiomegaly. Patient was initiated on heparin after discussion with Interventional Cardiology Dr. Alves. Patient was provided aspirin here. Symptoms are better controlled at this time. She will be admitted to a IMU bed and echocardiogram ordered. Awaiting discussion with hospitalist. Discussed with the hospitalist who accepted the patient to the IMU on heparin drip. Patient made aware of the plan and Cardiology is on board. Medical Records Data Attestation: I reviewed the patient's medical records. Lab Data Attestation: I reviewed the patient's lab results. 04/10/25 04:25 04/10/25 03:35 Labs: Lab Results 04/10/25 04/10/25 Range/Units 03:35 04:25 WBC 19.5 H 17.5 H (4.5-10.0) K/mm3 RBC 4.58 4.47 (4.2-5.4) M/mm3 Hgb 14.0 13.7 (12.0-15.0) g/dL Hct 43.8 42.9 (37.0-47.0) % MCV 95.6 96.0 (80-100) fl MCH 30.6 30.6 (26-34) pg MCHC 32.0 31.9 L (32-36) g/dl RDW 13.0 13.1 (11.5-14.5) % Plt Count 289 306 (150-375) k/mm3 MPV 8.6 8.8 (7.4-10.4) fl Immature Gran % (Auto) 0.4 0.5 (0-0.5) % Neut % (Auto) 72.9 76.0 H (45.5-73.1) % Lymph % (Auto) 18.8 17.3 L (18.3-44.2) % [place] % (Auto) 6.0 5.1 (2.6-8.5) % Eos % (Auto) 1.3 0.6 (0-4.4) % Baso % (Auto) 0.6 0.5 (0.2-1.2) % Lymph # (Auto) 3.66 H 3.03 (0.9-3.2) K/mm3 [place] # (Auto) 1.2 H 0.9 H (0.1-0.6) K/mm3 Eos # (Auto) 0.3 0.1 (0-0.3) K/mm3 Baso # (Auto) 0.1 0.1 (0.0-0.1) K/mm3 Abs Immat Gran (auto) 0.08 H 0.09 H (0.00-0.031) K/mm3 Absolute Neuts (auto) 14.2 H 13.3 H (1.3-6.7) K/mm3 Absolute Nucleated RBC 0.000 0.000 (0.0-0.012) K/mm3 Nucleated RBC % 0.0 0.0 (0.0-0.2) % PT 13.1 13.2 (11.1-14.7) Seconds INR 1.0 1.0 APTT 24.7 24.1 (22.3-36.8) Seconds Sodium 140 (137-145) mmol/L Potassium 3.7 (3.4-5.0) mmol/L Chloride 106 (98-107) mmol/L Carbon Dioxide 24 (22-30) mmol/L Anion Gap 10 (4-12) mmol/L BUN 14 (7-17) mg/dL Creatinine 0.84 (0.7-1.0) mg/dL Estim Creat Clear Calc 52 ml/min Estimated GFR > 60 (59 - ) Glucose 170 H (65-110) mg/dL Calcium 9.2 (8.4-10.2) mg/dL Total Bilirubin 0.6 (0.2-1.3) mg/dL AST 41 H (14-36) U/L ALT 23 (6-35) U/L Alkaline Phosphatase 92 (38-126) U/L Troponin I 0.674 H* (0.000-0.034) ng/mL Total Protein 8.0 (6.3-8.2) g/dL Albumin 4.6 (3.5-5.1) g/dL Lipase 165 (23-300) U/L Imaging Data Attestation: I personally reviewed and interpreted this imaging study as follows: My impression: Clear lungs, no effusions, no cardiomegaly. Normal aortic knob. No pneumothorax or consolidations. ECG Data EKG #1: Attestation: I personally reviewed and interpreted this ECG as follows: ECG completion date: 04/10/25 ECG completion time: 03:27 Interpretation: Right bundle-branch block, ST elevation in lead V2 but no contiguous elevations reciprocal depressions, low-voltage QRS complexes. No previous EKG for comparison. Right bundle-branch block with a QTC of 460, QRS 140, OH interval 129. Rate of 99 beats per minute. No acute GA Critical Care Time Critical Care Time Critical Care Time: Yes Total Critical Care Time: 35 Discharge Plan Discharge Clinical Impression: Acute non-ST elevation myocardial infarction (NSTEMI), Chest pain Patient Disposition: Still a Patient Condition: Guarded Prognosis
[2025-04-10 04:50] LABS: Partial Thromboplastin Time 24.1 Seconds (22.3-36.8); Prothrombin Time 13.2 Seconds (11.1-14.7)
[2025-04-10] MEDS: MORPHINE SULFATE (*CRX) 4 MG/ML INJ IV PUSH (05:42)
[2025-04-10] MEDS: FAMOTIDINE 20 MG/2 ML VIAL IV PUSH (05:43)
[2025-04-10] MEDS: ONDANSETRON INJ 4 MG/2 ML VIAL IV PUSH ×4 (05:43→18:11)
--- NOTE | 2025-04-10 06:06 | PC.NURSE ---
Called for report. Was told Nurse will call back for report to be given.
--- NOTE | 2025-04-10 06:13 | ADMGEN ---
This patient, Vanessa Calero, was admitted to IMU Room 201-01 at 0613. Patient/family oriented to hospital policies and general routines including ID bracelet, bed and alarms, visiting hours, pain management, procedures, bathroom and other care routines, personal items, smoking policy, room service/diet, and visiting hours. Information on how to activate the Rapid Response Team has been discussed. Patient/Family are encouraged to report perceived risks to care and to ask questions if they do not understand what they are told or what they should do.
[2025-04-10 10:30] LABS: Partial Thromboplastin Time 54.4 Seconds (22.3-36.8)
[2025-04-10] MEDS: NITROGLYCERIN SL 0.4 MG TABLET SUBLINGUAL ×2 (11:05→11:13)
[2025-04-10] MEDS: HEPARIN SODIUM 5,000 UNITS/ML VIAL 4000 UNITS IV PUSH (11:06)
--- NOTE | 2025-04-10 11:19 | ECG_ITS ---
Test Date: 2025-04-10 18:21:51 Measurements Intervals [place] Rate: 101 P: 64 MT: 121 QRS: 88 QRSD: 133 T: 90 QT: 330 QTc: 429 Interpretive Statements SINUS TACHYCARDIA WITH ARTIFACT RIGHT BUNDLE BRANCH BLOCK [120+ ms QRS DURATION, UPRIGHT V1, 40+ ms S IN I/aVL/V4/V5/V6] ANTEROSEPTAL MYOCARDIAL INFARCTION [40+ ms Q WAVE IN V1-V4], PROBABLY RECENT ACUTE MT ABNORMAL ECG Compared to ECG 04/10/2025 11:19:18 Ventricular premature complex(es) now present Short MT interval no longer present Myocardial infarct finding still present Electronically Signed On 04-11-2025 08:07:36 CDT by Олег Goodwin M.D.
--- NOTE | 2025-04-10 11:24 | P.HP_ITS ---
H&P: HPI History of Present Illness Date/Time: 04/10/25 11:24 Chief Complaint: Chest pain Narrative: 60 yo who presented to the ER on account of Chest pain. Noted that she has been having chest pain 2/7 described as substernal, 6/10, cold sweats radiates to LUE and neck. Denies any abd pain, diarrhea, focal weakness, or lightheadedness. ERR eval notable for vital signs stable adn within normal limits, labs WBC 19, Troponins 0.674 now 5.79. CXR unremarkabel started on Heparin infusion and aspirin prior to admission Cardiology was consulted Review of Systems Review of Systems: All other systems are reviewed and negative except noted in HPI above. [facility] Past Medical History Medical History (Updated 04/10/25 @ 12:01 by Олег Goodwin MD) Hyperlipidemia Irritable bowel syndrome (IBS) Surgical History Surgical History History of cholecystectomy Family History Family History (Updated 04/10/25 @ 06:35 by Oralia Rob RN) Father Skin cancer Family history of elevated blood lipids Hypertension Afib Mother Family history of diabetes mellitus in first degree relative Family history of coronary artery disease Hypertension Sibling Congestive heart failure Pancreatitis Social History Social History Smoking packs per day: 0.5 Smoking cigarettes per day: 10.0 Years smoked: 20 Smoking pack-years: 10.00 Smoking status: Current every day smoker Tobacco type: cigarettes Alcohol intake: former Substance use: never Substance use type: does not use Do You Feel Safe in your Home?: Yes Lack of Transportation: No Lack of Food: Never True Current Housing: I Have Housing Concerned About Future Housing: No Difficulty Paying Gas/Electric Bills: YES Difficulty Paying for Meds: No Currently Unemployed: No Education: High School Diploma/GED Difficulty w/ Childcare or Family Care: No Living arrangements: with family Occupation/Education: occupation Gender identity (if verbalized by the patient): Female Spiritual care concerns: No Meds Home Medications and Allergies Home Medications Medication Instructions Recorded Confirmed Type cholecalciferol (vitamin D3) 125 125 mcg PO DAILY 03/20/22 04/10/25 History mcg (5,000 unit) capsule mecobalamin (vitamin B12) 1,000 1,000 mcg PO DAILY 03/20/22 04/10/25 History mcg chewable tablet Allergies Allergy/AdvReac Type Severity Reaction Status Date / Time No Known Allergies Allergy Unknown Verified 08/17/23 08:07 Vital Signs Vital Signs - 24 hr 04/10/25 03:59 04/10/25 03:59 04/10/25 04:03 Temperature Pulse Rate 100 89 Respiratory Rate 15 Blood Pressure 135/90 Pulse Oximetry 100 100 Oxygen Delivery Room Air 04/10/25 04:33 04/10/25 06:11 04/10/25 06:31 Temperature 97.6 F Pulse Rate 91 95 Respiratory Rate 21 H 21 H Blood Pressure 137/92 H 133/80 Pulse Oximetry 99 97 Oxygen Delivery Room Air 04/10/25 07:59 04/10/25 08:00 Temperature 97.8 F Pulse Rate 89 Respiratory Rate 18 Blood Pressure 132/82 Pulse Oximetry 100 100 Oxygen Delivery Room Air Exam Narrative: Normal exam H&P: Results Labs Labs: Short CBC 04/10/25 04/10/25 Range/Units 03:35 04:25 WBC 19.5 H 17.5 H (4.5-10.0) K/mm3 Hgb 14.0 13.7 (12.0-15.0) g/dL Hct 43.8 42.9 (37.0-47.0) % Plt Count 289 306 (150-375) k/mm3 BMP 04/10/25 03:35 Sodium 140 Potassium 3.7 Chloride 106 Carbon Dioxide 24 BUN 14 Creatinine 0.84 Glucose 170 H Calcium 9.2 Cardiac Enzymes 04/10/25 04/10/25 04/10/25 Range/Units 03:35 06:24 10:01 Troponin I 0.674 H* 2.580 H* D 5.790 H* D (0.000-0.034) ng/mL Liver Function 04/10/25 Range/Units 03:35 Total Bilirubin 0.6 (0.2-1.3) mg/dL AST 41 H (14-36) U/L ALT 23 (6-35) U/L Alkaline Phosphatase 92 (38-126) U/L Albumin 4.6 (3.5-5.1) g/dL Assessment and Plan Assessment and plan (1) Acute non-ST elevation myocardial infarction (NSTEMI): Code(s): I21.4 - Non-ST elevation (NSTEMI) myocardial infarction Status: Acute (2) ACS (acute coronary syndrome): Code(s): I24.9 - Acute ischemic heart disease, unspecified Status: Acute Plan NSTEMI Presented with chest pain Elevated troponin Aspirin, Heparin infusion, Coreg 3.125mg for cardiac cath today Cardiology following Leukocytosis WBC 19 on admission, [address] chest ordered HLD On lipitor DVT prophylaxis on Sq Lovenox Full code Surrogate decision maker Camron Calero [facility] Advance Care Plan I have confirmed that the patient's Advanced Care Plan is present, code status is documented, or surrogate decision maker is listed in patient medical record.: Yes Medication Reconciliation I have utilized all available resources to obtain, update and review the patients current medications (includes all prescriptions, OTC, herbals, cannabis, and nutritional supplements).: Yes
[2025-04-10] MEDS: ATORVASTATIN 40 MG TABLET PO (11:46)
[2025-04-10] MEDS: ASPIRIN 81 MG CHEWABLE TABLET PO (11:47)
--- NOTE | 2025-04-10 11:50 | P.CONCA_ITS ---
Assessment and Plan Assessment and plan (1) ACS (acute coronary syndrome): Code(s): I24.9 - Acute ischemic heart disease, unspecified Status: Acute Assessment and Plan: She has chest pain syndrome consistent with ACS. Continue heparin drip. Nitroglycerin 0.4 mg sublingual p.r.n. chest pain is given with standard orders for recurrent use. Aspirin also ordered 81 mg daily. 2D echocardiogram Doppler is ordered and will be reviewed. EKG is also ordered. Atorvastatin [address] Discussion [address] Dr. Alves and given the fact that she still has ongoing pain with rising troponins, I think it is reasonable and prudent to pursue and cardiac catheterization at this point. She will be kept NPO with coronary angiogram to be performed in soon today. Further additions to her medical regimen depending on the results of the angiogram. (2) Smoker: Code(s): F17.200 - Nicotine dependence, unspecified, uncomplicated Status: Acute Assessment and Plan: Ongoing. Tobacco abuse counseled performed (3) Family history of premature CAD: Code(s): Z82.49 - Family history of ischemic heart disease and other diseases of the circulatory system Status: Acute (4) Hyperlipidemia: Code(s): E78.5 - Hyperlipidemia, unspecified Status: Acute Assessment and Plan: Markedly elevated. Will start her on atorvastatin 40 mg daily History of Present Illness History of Present Illness Consult date/time: 04/10/25 11:50 Requesting physician: Trevor Edouard MD Consult reason: chest pain Reason For Visit: NSTEMI, Chest pain Narrative: Reason for consultation: Chest pain, non-STEMI Date of service 04/10/2025 Requesting provider: Dr. Edouard History patient is a 60-year-old female does not have known previous cardiac history. She does smoke and has a family history of heart disease. She presented to the hospital because of chest pain. She states that her chest pain initially started 2 days ago. It lasted about 2-3 hours and described as a burning epigastric pain that did radiate to her back and left shoulder and arm. It lasted about 2-3 hours and did improve after taking some antacids. Later on that night, her symptoms came back and lasted a couple hours but she went to sleep and woke up feeling okay. Yesterday however she went to work and while at work she started developed some chest pain at by 30 the morning. She eventually went home from work around noon and her pain persisted throughout part of the afternoon but eventually did subside spontaneously. At 12:30 p.m. though this morning she woke up with very significant severe chest pain in. It was worse than the previous episodes. She was very diaphoretic as well as nauseated and at that point she decided to come to the hospital for further workup evaluation. EKG performed concerning for anterior IA and some non diagnostic ST-T elevations with right bundle branch block. It was initially decided to medically treat her. She was started on heparin drip. She did receive aspirin in the ED. troponins were initially elevated and have continued to rise to a level over 5. She is still currently having some pain. She states it is still radiating to her left shoulder area. She denies any recent syncope, bleeding problems, paroxysmal nocturnal dyspnea, orthopnea, edema, palpitations. Review of Systems 2 Review of Systems: All systems reviewed & are unremarkable except as noted in HPI and below Constitutional: Constitutional: Denies body ache(s) Eyes: Eyes: Denies blurry vision ENT: Reports Normal hearing present Cardiovascular: Cardiovascular: Reports chest pain Respiratory: Respiratory: Reports dyspnea Gastrointestinal: Gastrointestinal: Denies abdominal pain Genitourinary: Genitourinary: Denies hematuria Musculoskeletal: Musculoskeletal: Reports back pain Integumentary/Breasts: Skin/Breast: Denies wounds Neurologic: Denies Abnormal speech present Psychiatric: Psychiatric: Denies anxiety Endocrine: Endocrine: Reports excessive sweating Hematologic/Lymphatic: Hematologic/Lymphatic: Denies easy bleeding Allergic/Immunologic: Allergic/Immunologic: Denies GI upset with certain foods PMFSH Past Medical History Medical History (Updated 04/10/25 @ 12:01 by Олег Goodwin MD) Hyperlipidemia Irritable bowel syndrome (IBS) Surgical History Surgical History History of cholecystectomy Family History Family History (Updated 04/10/25 @ 06:35 by Oralia Rob RN) Father Skin cancer Family history of elevated blood lipids Hypertension Afib Mother Family history of diabetes mellitus in first degree relative Family history of coronary artery disease Hypertension Sibling Congestive heart failure Pancreatitis Social History Social History Smoking packs per day: 0.5 Smoking cigarettes per day: 10.0 Years smoked: 20 Smoking pack-years: 10.00 Smoking status: Current every day smoker Tobacco type: cigarettes Alcohol intake: former Substance use: never Substance use type: does not use Do You Feel Safe in your Home?: Yes Lack of Transportation: No Lack of Food: Never True Current Housing: I Have Housing Concerned About Future Housing: No Difficulty Paying Gas/Electric Bills: YES Difficulty Paying for Meds: No Currently Unemployed: No Education: High School Diploma/GED Difficulty w/ Childcare or Family Care: No Living arrangements: with family Occupation/Education: occupation Gender identity (if verbalized by the patient): Female Spiritual care concerns: No Meds Home Medications and Allergies Home Medications Medication Instructions Recorded Confirmed Type cholecalciferol (vitamin D3) 125 125 mcg PO DAILY 03/20/22 04/10/25 History mcg (5,000 unit) capsule mecobalamin (vitamin B12) 1,000 1,000 mcg PO DAILY 03/20/22 04/10/25 History mcg chewable tablet Allergies Allergy/AdvReac Type Severity Reaction Status Date / Time No Known Allergies Allergy Unknown Verified 08/17/23 08:07 Vital Signs Vital Signs - 24 hr 04/10/25 03:59 04/10/25 03:59 04/10/25 04:03 Temperature Pulse Rate 100 89 Respiratory Rate 15 Blood Pressure 135/90 Pulse Oximetry 100 100 Oxygen Delivery Room Air 04/10/25 04:33 04/10/25 06:11 04/10/25 06:31 Temperature 36.4 C Pulse Rate 91 95 Respiratory Rate 21 H 21 H Blood Pressure 137/92 H 133/80 Pulse Oximetry 99 97 Oxygen Delivery Room Air 04/10/25 07:59 04/10/25 08:00 04/10/25 11:48 Temperature 36.6 C 36.8 C Pulse Rate 89 110 H Respiratory Rate 18 18 Blood Pressure 132/82 130/84 Pulse Oximetry 100 100 94 Oxygen Delivery Room Air Exam 2 Narrative: Awake alert oriented appears in mild distress Const: General: comfortable and no acute distress HENMT: Face/Nose/Sinus: Normal nares present Mouth: Yes moist mucous membranes Eyes: General: appearance normal, both eyes and all related structures S clera: sclerae normal Neck: Neck: supple and no JVD Chest: Other: No reproducible chest wall pain to palpation Resp: Effort & Inspection: normal respiratory effort Auscultation: clear to auscultation bilaterally Cardio: Rate: regular rate Rhythm: regular rhythm Heart sounds: no murmurs GI: Inspection: non-distended GI Palp: Yes Soft to palpation Skin: General skin exam: normal color and no rashes or lesions noted Neuro: Speech: normal speech Sensory Exam: normal sensation Extrem: General: normal to inspection Psych: Mental Status: mental status grossly normal Affect: normal affect Results Labs and Meds 04/10/25 04:25 04/10/25 03:35 Lab results: Cardiac Enzymes 04/10/25 04/10/25 04/10/25 Range/Units 03:35 06:24 10:01 AST 41 H (14-36) U/L Troponin I 0.674 H* 2.580 H* D 5.790 H* D (0.000-0.034) ng/mL Coagulation 04/10/25 04/10/25 04/10/25 Range/Units 03:35 04:25 10:01 PT 13.1 13.2 (11.1-14.7) Seconds APTT 24.7 24.1 54.4 H (22.3-36.8) Seconds CBC 04/10/25 04/10/25 Range/Units 03:35 04:25 WBC 19.5 H 17.5 H (4.5-10.0) K/mm3 RBC 4.58 4.47 (4.2-5.4) M/mm3 Hgb 14.0 13.7 (12.0-15.0) g/dL Hct 43.8 42.9 (37.0-47.0) % Plt Count 289 306 (150-375) k/mm3 Lymph # (Auto) 3.66 H 3.03 (0.9-3.2) K/mm3 [place] # (Auto) 1.2 H 0.9 H (0.1-0.6) K/mm3 Eos # (Auto) 0.3 0.1 (0-0.3) K/mm3 Baso # (Auto) 0.1 0.1 (0.0-0.1) K/mm3 Comprehensive Metabolic Panel 04/10/25 Range/Units 03:35 Sodium 140 (137-145) mmol/L Potassium 3.7 (3.4-5.0) mmol/L Chloride 106 (98-107) mmol/L Carbon Dioxide 24 (22-30) mmol/L BUN 14 (7-17) mg/dL Creatinine 0.84 (0.7-1.0) mg/dL Glucose 170 H (65-110) mg/dL Calcium 9.2 (8.4-10.2) mg/dL AST 41 H (14-36) U/L ALT 23 (6-35) U/L Alkaline Phosphatase 92 (38-126) U/L Total Protein 8.0 (6.3-8.2) g/dL Albumin 4.6 (3.5-5.1) g/dL Intake and Output 04/09/25 04/10/25 04/10/25 23:59 07:59 15:59 Intake Total 46.1 Balance 46.1 Intake: IV 46.1 Heparin Sod/D5w 100 Units/ml 25 46.1 ,000 units In 250 ml @ 700 UNITS/HR 7 mls/hr IV CONT .Q24H [facility] Rx#:[id number] Patient Weight 04/10/25 23:59 Weight 59.7 kg EKG is personally reviewed and independently interpreted. Shows sinus rhythm with right bundle-branch block, borderline ST elevation anteriorly
--- NOTE | 2025-04-10 12:39 | P.SEDATION_ITS ---
Moderate Sedation Note-Pt Data Patient Data Allergies Allergy/AdvReac Type Severity Reaction Status Date / Time No Known Allergies Allergy Unknown Verified 08/17/23 08:07 Home Medications Medication Instructions Recorded Confirmed Type cholecalciferol (vitamin D3) 125 125 mcg PO DAILY 03/20/22 04/10/25 History mcg (5,000 unit) capsule mecobalamin (vitamin B12) 1,000 1,000 mcg PO DAILY 03/20/22 04/10/25 History mcg chewable tablet Current Medications: Active Medications Acetaminophen (Acetaminophen 325 Mg Tablet) 650 mg PO Q4H PRN PRN Reason: Mild Pain (1-3) or Fever Aspirin (Aspirin 81 Mg Chewable Tablet) 81 mg PO DAILY@0800 [facility] Last Admin: 04/10/25 11:47 Dose: 81 mg Atorvastatin Calcium (Atorvastatin 40 Mg Tablet) 40 mg PO DAILY [facility] Last Admin: 04/10/25 11:46 Dose: 40 mg Heparin Sodium (Porcine) (Heparin Sodium 5,000 Units/Ml Vial) 4,000 units IV PUSH PRN PRN PRN Reason: aPTT less than 55 seconds Last Admin: 04/10/25 11:06 Dose: 4,000 units Heparin Sodium (Porcine) (Heparin Sodium 5,000 Units/Ml Vial) 2,500 units IV PUSH PRN PRN PRN Reason: aPTT 55 - 70 seconds Heparin Sodium/Dextrose (Heparin Sodium/D5w 100 Units/Ml) 25,000 units in 250 mls @ 9 mls/hr IV CONT .Q24H [facility]; Protocol Last Titration: 04/10/25 11:07 Dose: 900 units/hr, 9 mls/hr Nitroglycerin (Nitroglycerin Sl 0.4 Mg Tablet) 0.4 mg SUBLINGUAL Q5MIN PRN PRN Reason: Chest Pain Last Admin: 04/10/25 11:13 Dose: 0.4 mg Ondansetron HCl (Ondansetron Inj 4 Mg/2 Ml Vial) 4 mg IV PUSH Q4H PRN PRN Reason: Nausea Last Admin: 04/10/25 09:09 Dose: 4 mg Perflutren Lipid Microsphere (Perflutren Lipid Microspheres 1.5 Ml Vial Diluted To 10 Ml Total Volume) 0 ml IV PUSH ONCE PRN; Protocol PRN Reason: adequate visualization Stop: 04/13/25 04:38 Sedation/Anesthesia: No previous sedation/anesthesia problems (including family history). PMFSH Past Medical History Medical History (Updated 04/10/25 @ 12:01 by Олег Goodwin MD) Hyperlipidemia Irritable bowel syndrome (IBS) Surgical History Surgical History History of cholecystectomy Family History Family History (Updated 04/10/25 @ 06:35 by Oralia Rob RN) Father Skin cancer Family history of elevated blood lipids Hypertension Afib Mother Family history of diabetes mellitus in first degree relative Family history of coronary artery disease Hypertension Sibling Congestive heart failure Pancreatitis Social History Social History Smoking packs per day: 0.5 Smoking cigarettes per day: 10.0 Years smoked: 20 Smoking pack-years: 10.00 Smoking status: Current every day smoker Tobacco type: cigarettes Alcohol intake: former Substance use: never Substance use type: does not use Do You Feel Safe in your Home?: Yes Lack of Transportation: No Lack of Food: Never True Current Housing: I Have Housing Concerned About Future Housing: No Difficulty Paying Gas/Electric Bills: YES Difficulty Paying for Meds: No Currently Unemployed: No Education: High School Diploma/GED Difficulty w/ Childcare or Family Care: No Living arrangements: with family Occupation/Education: occupation Gender identity (if verbalized by the patient): Female Spiritual care concerns: No Mod Sed Physical Exam Physical Exam Pre Procedural Exam: Normal: Airway Hours since solid foods: 8 Hours since liquid intake: 8 Mallampati Classification: class II Internal Medicine - PN: Obj Da Vital Signs Vital Signs: Vital Signs - 24 hr 04/10/25 03:59 04/10/25 03:59 04/10/25 04:03 Temperature Pulse Rate 100 89 Respiratory Rate 15 Blood Pressure 135/90 Pulse Oximetry 100 100 Oxygen Delivery Room Air 04/10/25 04:33 04/10/25 06:11 04/10/25 06:31 Temperature 36.4 C Pulse Rate 91 95 Respiratory Rate 21 H 21 H Blood Pressure 137/92 H 133/80 Pulse Oximetry 99 97 Oxygen Delivery Room Air 04/10/25 07:59 04/10/25 08:00 04/10/25 11:48 Temperature 36.6 C 36.8 C Pulse Rate 89 110 H Respiratory Rate 18 18 Blood Pressure 132/82 130/84 Pulse Oximetry 100 100 94 Oxygen Delivery Room Air 04/10/25 12:00 Temperature Pulse Rate Respiratory Rate Blood Pressure Pulse Oximetry 94 Oxygen Delivery Room Air Intake/Output Intake/Output: Intake & Output 04/07/25 04/08/25 04/09/25 04/10/25 23:59 23:59 23:59 23:59 Intake Total 46.1 Balance 46.1 Meds/Results Medications: Active Medications Generic Name Dose Route Start Last Admin Trade Name Freq PRN Reason Stop Dose Admin Acetaminophen 650 mg 04/10/25 04:50 Acetaminophen 325 Mg Tablet PO Q4H PRN Mild Pain (1-3) or Fever Aspirin 81 mg 04/10/25 11:31 04/10/25 11:47 Aspirin 81 Mg Chewable Tablet PO 81 mg DAILY@0800 [facility] Administration Atorvastatin Calcium 40 mg 04/10/25 11:31 04/10/25 11:46 Atorvastatin 40 Mg Tablet PO 40 mg DAILY [facility] Administration Heparin Sodium (Porcine) 4,000 units 04/10/25 04:09 04/10/25 11:06 Heparin Sodium 5,000 Units/Ml Vial IV PUSH 4,000 units PRN PRN Administration aPTT less than 55 seconds Heparin Sodium (Porcine) 2,500 units 04/10/25 04:09 Heparin Sodium 5,000 Units/Ml Vial IV PUSH PRN PRN aPTT 55 - 70 seconds Heparin Sodium/Dextrose 25,000 units in 250 mls @ 9 mls/hr 04/10/25 04:10 04/10/25 11:07 Heparin Sodium/D5w 100 Units/Ml IV CONT 900 units/hr .Q24H [facility] 9 mls/hr Titration Protocol 900 UNITS/HR Nitroglycerin 0.4 mg 04/10/25 10:55 04/10/25 11:13 Nitroglycerin Sl 0.4 Mg Tablet SUBLINGUAL 0.4 mg Q5MIN PRN Administration Chest Pain Ondansetron HCl 4 mg 04/10/25 04:50 04/10/25 09:09 Ondansetron Inj 4 Mg/2 Ml Vial IV PUSH 4 mg Q4H PRN Administration Nausea Perflutren Lipid Microsphere 0 ml 04/10/25 04:38 Perflutren Lipid Microspheres 1.5 Ml Vial Diluted To 10 Ml Total Volume IV PUSH 04/13/25 04:38 ONCE PRN adequate visualization Protocol Radiology Results: ITS Impressions Chest X-Ray 04/10/25 08:22 IMPRESSION: 1. Mild emphysema. No acute cardiopulmonary disease. Labs 04/10/25 04:25 04/10/25 03:35 Labs: Laboratory Results - last 24 hr 04/10/25 04/10/25 04/10/25 03:35 04:25 06:24 WBC 19.5 H 17.5 H RBC 4.58 4.47 Hgb 14.0 13.7 Hct 43.8 42.9 MCV 95.6 96.0 MCH 30.6 30.6 MCHC 32.0 31.9 L RDW 13.0 13.1 Plt Count 289 306 MPV 8.6 8.8 Immature Gran % (Auto) 0.4 0.5 Neut % (Auto) 72.9 76.0 H Lymph % (Auto) 18.8 17.3 L [place] % (Auto) 6.0 5.1 Eos % (Auto) 1.3 0.6 Baso % (Auto) 0.6 0.5 Lymph # (Auto) 3.66 H 3.03 [place] # (Auto) 1.2 H 0.9 H Eos # (Auto) 0.3 0.1 Baso # (Auto) 0.1 0.1 Abs Immat Gran (auto) 0.08 H 0.09 H Absolute Neuts (auto) 14.2 H 13.3 H Absolute Nucleated RBC 0.000 0.000 Nucleated RBC % 0.0 0.0 PT 13.1 13.2 INR 1.0 1.0 APTT 24.7 24.1 Sodium 140 Potassium 3.7 Chloride 106 Carbon Dioxide 24 Anion Gap 10 BUN 14 Creatinine 0.84 Estim Creat Clear Calc 52 Estimated GFR > 60 Glucose 170 H Calcium 9.2 Total Bilirubin 0.6 AST 41 H ALT 23 Alkaline Phosphatase 92 Troponin I 0.674 H* 2.580 H* D Total Protein 8.0 Albumin 4.6 Lipase 165 04/10/25 10:01 WBC RBC Hgb Hct MCV MCH MCHC RDW Plt Count MPV Immature Gran % (Auto) Neut % (Auto) Lymph % (Auto) [place] % (Auto) Eos % (Auto) Baso % (Auto) Lymph # (Auto) [place] # (Auto) Eos # (Auto) Baso # (Auto) Abs Immat Gran (auto) Absolute Neuts (auto) Absolute Nucleated RBC Nucleated RBC % PT INR APTT 54.4 H Sodium Potassium Chloride Carbon Dioxide Anion Gap BUN Creatinine Estim Creat Clear Calc Estimated GFR Glucose Calcium Total Bilirubin AST ALT Alkaline Phosphatase Troponin I 5.790 H* D Total Protein Albumin Lipase ASA Classification/Sedation ASA Classification/Sedation ASA Class: IV Emergent: Yes Risks: Risks, benefits and alternatives explained and patient/family accepted plan for sedation. Patient re-evaluated immediately prior to sedation.
--- NOTE | 2025-04-10 13:41 | WPDCARDPROC ---
Cardiac Cath Procedure Note Date of procedure:: 04/10/25 Performing physician:: Rafael Alves MD Procedure Procedure performed:: CARDIAC CATHETERIZATION AND PERCUTANEOUS CORONARY INTERVENTION REPORT DATE OF PROCEDURE: 04/10/2025 INDICATION FOR PROCEDURE: ACS/late presentation, ST segment abnormality anteroseptal leads BRIEF CLINICAL HISTORY: 60-year-old female with no known prior cardiac history; history of tobacco abuse. Patient presented to [facility] with complaints of chest pain for last 3-4 days. Her presenting EKG showed sinus tachycardia, RBBB, subtle ST elevation in anteroseptal leads-V3>V2. Her troponins were elevated, current peak troponin 5.79. Echo reportedly showed LV dysfunction, EF 30 35%, segmental wall motion abnormality. Patient had ongoing chest pain, and hence was brought to the cardiac catheterization lab. Benefits and risks of the procedure were discussed with the patient in depth, and informed consent was obtained prior to the procedure. Risks of the procedure include but are not limited to vascular complications including groin hematoma, retroperitoneal bleed, vessel perforation; periprocedural NE, cardiac arrhythmias, stroke, contrast induced nephropathy, and . After discussing all the benefits, risks and alternatives, patient was willing to proceed with the procedure. PROCEDURES PERFORMED: 1. Left heart catheterization- Selective left and right coronary angiogram; left ventriculogram and hemodynamic assessment 2. Percutaneous coronary intervention- a) intravascular ultrasound of LAD; b) PTCA/stenting of totally occluded proximal-mid LAD using a 2.75 x 22 mm Biotronik sirolimus eluting stent with jew of BRADLY 3 flow 3. Deployment of Mynx hemostatic device 4. Moderate sedation-CPT code 11249 and beyond MODERATE SEDATION: Midazolam 1 mg; fentanyl 25 mcg. Start time 1250 , Stop time 1330 ; Total [id number] time 40 minutes; Malinda Arciniega RN was trained observer for moderate sedation. ACCESS SITE: Right common femoral artery PROCEDURE NOTE: After obtaining informed consent, patient was urgently brought to catheterization lab and prepped and draped in a usual sterile manner. After local anesthesia with lidocaine, right common femoral artery access was taken with micropuncture needle followed by insertion of a 6 Sudanese sheath. Selective left and right coronary angiogram was performed using 6 Sudanese EBU 3 and 5 Sudanese JR4 diagnostic catheters respectively. Orthogonal views were taken. After completion of PCI, 5 Sudanese pigtail catheter was advanced in the LV cavity and was flushed with normal saline. LV pressure measurement was performed. After this, left ventriculogram was performed. The catheter was flushed again, and gradient across the aortic valve was measured on the pullback of the catheter. After completion of procedure, Mynx vascular closure device was deployed with good hemostasis. Patient tolerated procedure well without any immediate procedure related complications. FINDINGS: LEFT MAIN CORONARY: Medium caliber long vessel, minor plaque in the mildly tortuous mid segment. LEFT ANTERIOR DESCENDING ARTERY: The LAD is a relatively smaller caliber vessel with 100% occlusion in the proximal segment. After PCI and jew of flow, the vessel becomes small caliber/diminutive vessel in the distal segment. High arising, major diagonal branch is a small-caliber vessel without significant focal stenosis. LEFT CIRCUMFLEX ARTERY: Small to medium caliber vessel with mild plaque in the proximal segment. The vessel gives rise to small to medium caliber OM1 branch and small-caliber OM2 branch. There is about 50-60% stenosis in the mid LCX between om branches. RIGHT CORONARY ARTERY: Medium caliber vessel with about 30-40% diffuse stenosis in the proximal-mid segment. The vessel gives rise to medium caliber PDA branch and small to medium caliber PLV branches. LEFT VENTRICULOGRAM: LV systolic dysfunction with segmental wall motion abnormality; mid-distal anterior wall, apex and inferior apical segments are akinetic; basal segments are relatively preserved. Ejection fraction is approximately 30-35%. LVEDP is elevated at 27 mmHg. HEMODYNAMIC ASSESSMENT: Opening pressure 148/92 mmHg, closing pressure 136/74 mmHg, LVEDP 27 mmHg; no significant gradient across aortic valve on the pullback of pigtail catheter. INTERVENTION REPORT: Left main coronary artery ostium was selectively engaged using 6 Sudanese EBU guide catheter. Patient was given aspirin loading dose of ticagrelor in the yard labor supervisor. Bivalirudin was used for procedural anticoagulation. The totally occluded proximal-mid LAD was successfully crossed using 0.014 fuel pilot engineer 150 guidewire. Next, angioplasty was performed using a 2.5 x 10 mm compliant balloon. This resulted in the jew of flow in the LAD. Next, IVUS was performed using a Realeyes 3D [place] catheter which on manual pullback showed atherosclerotic plaque in the occluded segment of the vessel, reference diameter 2.8 x 3.2 mm. After this, a 2.75 x 22 mm Medtronic sirolimus eluting stent was successfully deployed, followed by post dilation using a 3.0 x 12 mm NC balloon at high inflation pressures. Ic nitroglycerin was given. Completion IVUS was performed which showed reasonable stent apposition. There was jew of BRADLY 3 flow in the LAD, although distal LAD appeared to be diminutive vessel. Left ventriculogram was performed after completion of PCI as described above. Mynx vascular closure device was deployed for local hemostasis. Patient will probably procedure well without immediate procedure complications. CONCLUSIONS: 1. CAD- A) 100% occlusion proximal-mid LAD; b) 50-60% stenosis mid LCX; c) 30-40% diffuse stenosis proximal-mid RCA 2. LV systolic dysfunction with segmental wall motion [id number] anterior wall, apical and inferior apical segments are akinetic, basal segments are relatively preserved; LVEF approximately 30-35%, LVEDP elevated at 27 mmHg. 3. PCI-IVUS, PTCA/stenting of totally occluded proximal-mid LAD using a 2.75 x 22 mm Biotronik sirolimus eluting stent with jew of BRADLY 3 flow. PLAN/RECOMMENDATIONS: 1. Dual antiplatelet therapy with aspirin ticagrelor; high-intensity statin. In light of LV systolic dysfunction, initiate on beta-rodrick, ARB (can switch to ARNI later), SGLT2 inhibitor; and spironolactone (when potassium level normalizes). 2. Repeat limited echo with contrast to rule out LV apical thrombus. 3. Check other labs including lipid panel, HGB A1c 4. Complete smoking cessation. 5. External wearable defibrillator-life vest at discharge (if LVEF <35% on repeat limited echo) 6. Telemetry monitoring This document was completed by using [employer] speech recognition software, therefore, commodity director variances may occur.
[2025-04-10] MEDS: SODIUM CHLORIDE 0.9% IV 1,000 ML 125 ML IV CONT (14:22)
[2025-04-10 14:43] LABS: Hemoglobin A1C 5.5 % (<5.7)
--- NOTE | 2025-04-10 14:43 | PC.NURSE ---
arrived to ICU 1 from calibration laboratory technician for recovery post stent placement. angiomax discontinued up in calibration laboratory technician, patient had sheath removal in calibration laboratory technician with mynx closure. will return to 201 after recovery.
[2025-04-10 15:24] LABS: Cholesterol 230 mg/dL (0-200); HDL Direct 47 mg/dL; Triglycerides 61 mg/dL (<150)
[2025-04-10 15:35] LABS: LDL Cholesterol Direct 144 mg/dL
--- NOTE | 2025-04-10 18:12 | ECG_ITS ---
Test Date: 2025-04-10 11:19:18 Measurements Intervals [place] Rate: 107 P: 63 [place]: 118 QRS: 75 QRSD: 140 T: 90 QT: 334 QTc: 447 Interpretive Statements SINUS TACHYCARDIA WITH SHORT [place] INTERVAL POSSIBLE LEFT ATRIAL ENLARGEMENT [-0.1mV P WAVE IN V1/V2] RIGHT BUNDLE BRANCH BLOCK [120+ ms QRS DURATION, UPRIGHT V1, 40+ ms S IN I/aVL/V4/V5/V6] ANTERIOR MYOCARDIAL INFARCTION [40+ ms Q WAVE AND/OR ST/T ABNORMALITY IN V3/V4], PROBABLY RECENT ACUTE CT ABNORMAL ECG Electronically Signed On 04-11-2025 08:06:29 CDT by Олег Goodwin M.D.
[2025-04-10] MEDS: TICAGRELOR 90 MG TABLET PO (21:02)
[2025-04-10] MEDS: carvediloL 3.125 MG TABLET PO (21:02)
[2025-04-11] VITALS (23 sets, daily range): BP systolic 82–126; BP diastolic 46–88; PULSE 68–120; RESP 14–18; TEMP 36.3–37.4; O2SAT 94–99
[2025-04-11 04:14] LABS: Basophils Percent Auto 0.3 % (0.2-1.2); Hemoglobin 13.3 g/dL (12.0-15.0); Immature Granulocyte Absolute 0.06 K/mm3 (0.00-0.031); Immature Granulocyte Percent A 0.4 % (0-0.5); Lymphocytes Absolute Auto 2.41 K/mm3 (0.9-3.2); Lymphocytes Percent Auto 16.9 % (18.3-44.2); Mean Corpuscular HGB Conc 33.3 g/dl (32-36); Mean Corpuscular Hemoglobin 31.1 pg (26-34); Mean Corpuscular Volume 93.5 fl (80-100); Mean Platelet Volume 8.9 fl (7.4-10.4); Monocytes Absolute Auto 1.8 K/mm3 (0.1-0.6); Monocytes Percent Auto 12.5 % (2.6-8.5); Neutrophils Percent Auto 69.9 % (45.5-73.1); Platelet Count Result 281 k/mm3 (150-375); Red Blood Count 4.28 M/mm3 (4.2-5.4); Red Cell Distribution Width 13.2 % (11.5-14.5); White Blood Count 14.3 K/mm3 (4.5-10.0)
[2025-04-11 04:30] LABS: Alanine Aminotransferase 77 U/L (6-35); Alkaline Phosphatase 79 U/L (38-126); Anion Gap 8 mmol/L (4-12); Aspartate Amino Transferase 493 U/L (14-36); Bilirubin,Total 1.4 mg/dL (0.2-1.3); Blood Urea Nitrogen 15 mg/dL (7-17); Calcium 8.8 mg/dL (8.4-10.2); Carbon Dioxide 23 mmol/L (22-30); Chloride 108 mmol/L (98-107); Estimated CRCL calculation 49 ml/min; Estimated Glomerular Filt Rate > 60; Glucose 125 mg/dL (65-110); Potassium 4.1 mmol/L (3.4-5.0); Sodium 139 mmol/L (137-145)
[2025-04-11] MEDS: carvediloL 3.125 MG TABLET PO (09:19)
[2025-04-11] MEDS: LOSARTAN POTASSIUM 12.5 MG TABLET PO (09:19)
[2025-04-11] MEDS: TICAGRELOR 90 MG TABLET PO ×2 (09:19→21:05)
[2025-04-11] MEDS: EMPAGLIFLOZIN 10 MG TABLET PO (09:19)
[2025-04-11] MEDS: ASPIRIN 81 MG ENTERIC TABLET PO (09:19)
[2025-04-11] MEDS: ATORVASTATIN 40 MG TABLET 80 MG PO (09:19)
--- NOTE | 2025-04-11 11:51 | PM.PNCARD ---
Progress Note: A&P Assessment and Plan (1) ACS (acute coronary syndrome): Code(s): I24.9 - Acute ischemic heart disease, unspecified Status: Acute Assessment and Plan: Is status post PCI to LAD. Continue aspirin, Brilinta. Will slightly bump up her carvedilol at 6.25 mg p.o. b.i.d.. Continue atorvastatin, Jardiance, losartan. Add spironolactone when able. Will order LifeVest. Long discussion was had with her regarding possibility of sudden cardiac given ejection fraction less than 35%. She verbalized understanding is willing to try and wear the LifeVest. (2) Smoker: Code(s): F17.200 - Nicotine dependence, unspecified, uncomplicated Status: Acute Assessment and Plan: Ongoing. Tobacco abuse counseled performed (3) Family history of premature CAD: Code(s): Z82.49 - Family history of ischemic heart disease and other diseases of the circulatory system Status: Acute (4) Hyperlipidemia: Code(s): E78.5 - Hyperlipidemia, unspecified Status: Acute Assessment and Plan: Continue atorvastatin (5) Ischemic cardiomyopathy: Code(s): I25.5 - Ischemic cardiomyopathy Status: Acute Assessment and Plan: EF 30-35%. Will repeat a limited echo tomorrow with definity to rule out LV thrombus (6) Coronary artery disease: Code(s): I25.10 - Atherosclerotic heart disease of [place] coronary artery without angina pectoris Status: Acute Assessment and Plan: As detailed above Subjective Date/time seen: 04/11/25 11:51 Interval history: 60-year-old admitted for ACS. Status post catheterization/PCI yesterday 1. CAD- A) 100% occlusion proximal-mid LAD; b) 50-60% stenosis mid LCX; c) 30-40% diffuse stenosis proximal-mid RCA 2. LV systolic dysfunction with segmental wall motion [id number] anterior wall, apical and inferior apical segments are akinetic, basal segments are relatively preserved; LVEF approximately 30-35%, LVEDP elevated at 27 mmHg. 3. PCI-IVUS, PTCA/stenting of totally occluded proximal-mid LAD using a 2.75 x 22 mm Biotronik sirolimus eluting stent with muslim of BRADLY 3 flow. Date of service 04/11/2025: No longer has any chest pain. Feels like she is breathing a little hard at times but no swelling. Review of Systems Review of Systems: All systems reviewed & are unremarkable except as noted in HPI and below Constitutional: Constitutional: Denies body ache(s) and Reports excessive sweating Eyes: Eyes: Denies blurry vision ENT: Reports Normal hearing present Cardiovascular: Cardiovascular: Reports chest pain and Reports dyspnea Respiratory: Respiratory: Reports dyspnea Gastrointestinal: Gastrointestinal: Denies abdominal pain Genitourinary: Genitourinary: Denies hematuria Musculoskeletal: Musculoskeletal: Reports back pain Integumentary/Breasts: Skin/Breast: Denies wounds Neurologic: Reports Normal hearing present and Denies Abnormal speech present Psychiatric: Psychiatric: Denies anxiety Endocrine: Endocrine: Reports excessive sweating Hematologic/Lymphatic: Hematologic/Lymphatic: Denies easy bleeding Allergic/Immunologic: Allergic/Immunologic: Denies GI upset with certain foods Exam Narrative: Awake alert oriented appears stated age Const: General: comfortable and no acute distress HENMT: Face/Nose/Sinus: Normal nares present Mouth: Yes moist mucous membranes Eyes: General: appearance normal, both eyes and all related structures Sclera: sclerae normal Neck: Neck: supple and no JVD Chest: Other: No reproducible chest wall pain to palpation Resp: Effort & Inspection: normal respiratory effort Auscultation: clear to auscultation bilaterally Cardio: Rate: regular rate Rhythm: regular rhythm Heart sounds: no murmurs GI: Inspection: non-distended Skin: General skin exam: normal color and no rashes or lesions noted Neuro: Cranial nerves: Yes Normal hearing present Speech: normal speech and No Abnormal speech present Sensory Exam: normal sensation Extrem: General: normal to inspection Other: Right groin is free of hematoma, ecchymosis or bruit Psych: Mental Status: mental status grossly normal Affect: normal affect Objective Data Vital Signs Vital Signs: Vital Signs - 24 hr 04/10/25 12:00 04/10/25 12:00 04/10/25 13:50 Temperature 36.9 C Pulse Rate 99 97 Pulse Rate [Bilateral Pedal (Dorsalis Pedis) Palpation] 99 Respiratory Rate 16 Blood Pressure 133/81 Pulse Oximetry 94 90 Oxygen Delivery Room Air Oxygen Flow Rate 04/10/25 14:00 04/10/25 14:05 04/10/25 14:08 Temperature 36.9 C Pulse Rate 102 H 101 H 98 Pulse Rate [Bilateral Pedal (Dorsalis Pedis) Palpation] 101 H Respiratory Rate 20 16 Blood Pressure 132/86 Pulse Oximetry 91 92 Oxygen Delivery Nasal Cannula Oxygen Flow Rate 2 04/10/25 14:20 04/10/25 14:50 04/10/25 14:55 Temperature 36.8 C 36.9 C Pulse Rate 99 102 H 101 H Pulse Rate [Bilateral Pedal (Dorsalis Pedis) Palpation] 99 102 H Respiratory Rate 18 15 14 Blood Pressure 143/94 H 146/93 H Pulse Oximetry 96 95 92 Oxygen Delivery Room Air Oxygen Flow Rate 04/10/25 15:20 04/10/25 15:44 04/10/25 16:00 Temperature 36.6 C Pulse Rate 102 H 105 H Pulse Rate [Bilateral Pedal (Dorsalis Pedis) Palpation] 102 H Respiratory Rate 14 18 Blood Pressure 141/86 H Pulse Oximetry 91 91 94 Oxygen Delivery Nasal Cannula Nasal Cannula Oxygen Flow Rate 2 2 04/10/25 16:00 04/10/25 16:20 04/10/25 16:35 Temperature 36.9 C 36.9 C Pulse Rate 98 117 H 117 H Pulse Rate [Bilateral Pedal (Dorsalis Pedis) Palpation] 117 H Respiratory Rate 20 20 Blood Pressure 132/96 H 132/96 H Pulse Oximetry 94 94 Oxygen Delivery Oxygen Flow Rate 04/10/25 17:20 04/10/25 17:20 04/10/25 18:00 Temperature 37.4 C Pulse Rate 100 103 H 106 H Pulse Rate [Bilateral Pedal (Dorsalis Pedis) Palpation] 100 Respiratory Rate 20 Blood Pressure 123/73 Pulse Oximetry 97 Oxygen Delivery Oxygen Flow Rate 04/10/25 18:20 04/10/25 18:20 04/10/25 19:18 Temperature Pulse Rate 106 H 105 H 102 H Pulse Rate [Bilateral Pedal (Dorsalis Pedis) Palpation] 106 H Respiratory Rate 18 18 Blood Pressure 131/87 131/82 Pulse Oximetry 100 100 Oxygen Delivery Oxygen Flow Rate 04/10/25 20:00 04/10/25 20:00 04/10/25 21:00 Temperature 36.4 C Pulse Rate 102 H 104 H Pulse Rate [Bilateral Pedal (Dorsalis Pedis) Palpation] Respiratory Rate 18 Blood Pressure 131/82 Pulse Oximetry 100 95 Oxygen Delivery Nasal Cannula Oxygen Flow Rate 2 04/10/25 21:02 04/10/25 22:00 04/10/25 23:24 Temperature 37.3 C Pulse Rate 106 H 102 H 98 Pulse Rate [Bilateral Pedal (Dorsalis Pedis) Palpation] Respiratory Rate 17 Blood Pressure 127/77 Pulse Oximetry 92 Oxygen Delivery Oxygen Flow Rate 04/11/25 00:00 04/11/25 00:15 04/11/25 02:00 Temperature Pulse Rate 95 99 Pulse Rate [Bilateral Pedal (Dorsalis Pedis) Palpation] Respiratory Rate Blood Pressure Pulse Oximetry 96 Oxygen Delivery Nasal Cannula Oxygen Flow Rate 2 04/11/25 03:47 04/11/25 04:00 04/11/25 04:10 Temperature 36.3 C L Pulse Rate 120 H 103 H Pulse Rate [Bilateral Pedal (Dorsalis Pedis) Palpation] Respiratory Rate 17 Blood Pressure 126/88 Pulse Oximetry 94 95 Oxygen Delivery Nasal Cannula Oxygen Flow Rate 2 04/11/25 06:00 04/11/25 07:46 04/11/25 08:00 Temperature 36.5 C Pulse Rate 110 H 68 Pulse Rate [Bilateral Pedal (Dorsalis Pedis) Palpation] Respiratory Rate 14 Blood Pressure 98/61 L Pulse Oximetry 99 99 Oxygen Delivery Room Air Oxygen Flow Rate 04/11/25 08:00 04/11/25 09:19 04/11/25 10:00 Temperature Pulse Rate 99 100 98 Pulse Rate [Bilateral Pedal (Dorsalis Pedis) Palpation] Respiratory Rate Blood Pressure Pulse Oximetry Oxygen Delivery Oxygen Flow Rate Intake/Output Intake/Output: Intake & Output 04/08/25 04/09/25 04/10/25 04/11/25 23:59 23:59 23:59 23:59 Intake Total 297.8 120 Output Total 450 150 Balance -152.2 -30 Meds/Results Medications: Active Medications Generic Name Dose Route Start Last Admin Trade Name Freq PRN Reason Stop Dose Admin Acetaminophen 650 mg 04/10/25 04:50 Acetaminophen 325 Mg Tablet PO Q4H PRN Mild Pain (1-3) or Fever Aspirin 81 mg 04/11/25 09:00 04/11/25 09:19 Aspirin 81 Mg Enteric Tablet PO 81 mg QAM GURWINDER Administration Atorvastatin Calcium 80 mg 04/11/25 09:00 04/11/25 09:19 Atorvastatin 40 Mg Tablet PO 80 mg DAILY GURWINDER Administration Carvedilol 3.125 mg 04/10/25 21:00 04/11/25 09:19 Carvedilol 3.125 Mg Tablet PO 3.125 mg Q12HR GURWINDER Administration Empagliflozin 10 mg 04/11/25 09:00 04/11/25 09:19 Empagliflozin 10 Mg Tablet PO 10 mg DAILY GURWINDER Administration Losartan Potassium 12.5 mg 04/11/25 09:00 04/11/25 09:19 Losartan Potassium 12.5 Mg Tablet PO 12.5 mg DAILY GURWINDER Administration Ondansetron HCl 4 mg 04/10/25 04:50 04/10/25 18:11 Ondansetron Inj 4 Mg/2 Ml Vial IV PUSH 4 mg Q4H PRN Administration Nausea Perflutren Lipid Microsphere 0 ml 04/10/25 04:38 Perflutren Lipid Microspheres 1.5 Ml Vial Diluted To 10 Ml Total Volume IV PUSH 04/13/25 04:38 ONCE PRN adequate visualization Protocol Ticagrelor 90 mg 04/10/25 21:00 04/11/25 09:19 Ticagrelor 90 Mg Tablet PO 90 mg Q12HR GURWINDER Administration Radiology Results: ITS Impressions Chest X-Ray 04/10/25 08:22 IMPRESSION: 1. Mild emphysema. No acute cardiopulmonary disease. Labs Labs: Laboratory Results - last 24 hr 04/10/25 04/10/25 04/11/25 03:35 06:22 03:55 WBC 14.3 H RBC 4.28 Hgb 13.3 Hct 40.0 MCV 93.5 MCH 31.1 MCHC 33.3 RDW 13.2 Plt Count 281 MPV 8.9 Immature Gran % (Auto) 0.4 Neut % (Auto) 69.9 Lymph % (Auto) 16.9 L [place] % (Auto) 12.5 H Eos % (Auto) 0.0 Baso % (Auto) 0.3 Lymph # (Auto) 2.41 [place] # (Auto) 1.8 H Eos # (Auto) 0.0 Baso # (Auto) 0.0 Abs Immat Gran (auto) 0.06 H Absolute Neuts (auto) 10.0 H Absolute Nucleated RBC 0.000 Nucleated RBC % 0.0 Sodium 139 Potassium 4.1 Chloride 108 H Carbon Dioxide 23 Anion Gap 8 BUN 15 Creatinine 0.90 Estim Creat Clear Calc 49 Estimated GFR > 60 Glucose 125 H Hemoglobin A1c 5.5 Calcium 8.8 Total Bilirubin 1.4 H AST 493 H ALT 77 H Alkaline Phosphatase 79 Total Protein 7.0 Albumin 4.0 Triglycerides 61 Cholesterol 230 H LDL Cholesterol Direct 144 HDL Direct 47
--- NOTE | 2025-04-11 13:05 | PM.IMPN ---
Progress Note: A&P Assessment and Plan (1) Acute non-ST elevation myocardial infarction (NSTEMI): Code(s): I21.4 - Non-ST elevation (NSTEMI) myocardial infarction Status: Acute (2) ACS (acute coronary syndrome): Code(s): I24.9 - Acute ischemic heart disease, unspecified Status: Acute Plan NSTEMI s/p PCI to LAS Continue ASPirin, Brilinta, Coreg, Jardiance, losartan, Lipitor Prior ECHo showed Ef 30-35% LDL 144, A1c 5.5 Repeat ECHO pending and cardiology working on Lifevest Cardiology following Leukocytosis WBC 19 on admission, 17 today reoslving HLD On lipitor DVT prophylaxis on Sq Lovenox Full code Subjective Date/time seen: 04/11/25 13:05 Interval history: [place] at bedside s/p PCI to LAD Review of Systems Review of Systems: All other systems are reviewed and negative except noted in HPI above. Exam Narrative: Normal exam Objective Data Vital Signs Vital Signs: Vital Signs - 24 hr 04/10/25 13:50 04/10/25 14:00 04/10/25 14:05 Temperature 98.4 F 98.4 F Pulse Rate 97 102 H 101 H Pulse Rate [Bilateral Pedal (Dorsalis Pedis) Palpation] 99 101 H Respiratory Rate 16 20 Blood Pressure 133/81 132/86 Pulse Oximetry 90 91 Oxygen Delivery Oxygen Flow Rate 04/10/25 14:08 04/10/25 14:20 04/10/25 14:50 Temperature 98.3 F 98.4 F Pulse Rate 98 99 102 H Pulse Rate [Bilateral Pedal (Dorsalis Pedis) Palpation] 99 102 H Respiratory Rate 16 18 15 Blood Pressure 143/94 H 146/93 H Pulse Oximetry 92 96 95 Oxygen Delivery Nasal Cannula Oxygen Flow Rate 2 04/10/25 14:55 04/10/25 15:20 04/10/25 15:44 Temperature 98 F Pulse Rate 101 H 102 H 105 H Pulse Rate [Bilateral Pedal (Dorsalis Pedis) Palpation] 102 H Respiratory Rate 14 14 18 Blood Pressure 141/86 H Pulse Oximetry 92 91 91 Oxygen Delivery Room Air Nasal Cannula Oxygen Flow Rate 2 04/10/25 16:00 04/10/25 16:00 04/10/25 16:20 Temperature 98.5 F Pulse Rate 98 117 H Pulse Rate [Bilateral Pedal (Dorsalis Pedis) Palpation] 117 H Respiratory Rate 20 Blood Pressure 132/96 H Pulse Oximetry 94 94 Oxygen Delivery Nasal Cannula Oxygen Flow Rate 2 04/10/25 16:35 04/10/25 17:20 04/10/25 17:20 Temperature 98.5 F 99.3 F Pulse Rate 117 H 100 103 H Pulse Rate [Bilateral Pedal (Dorsalis Pedis) Palpation] 100 Respiratory Rate 20 20 Blood Pressure 132/96 H 123/73 Pulse Oximetry 94 97 Oxygen Delivery Oxygen Flow Rate 04/10/25 18:00 04/10/25 18:20 04/10/25 18:20 Temperature Pulse Rate 106 H 106 H 105 H Pulse Rate [Bilateral Pedal (Dorsalis Pedis) Palpation] 106 H Respiratory Rate 18 Blood Pressure 131/87 Pulse Oximetry 100 Oxygen Delivery Oxygen Flow Rate 04/10/25 19:18 04/10/25 20:00 04/10/25 20:00 Temperature 97.6 F Pulse Rate 102 H 102 H 104 H Pulse Rate [Bilateral Pedal (Dorsalis Pedis) Palpation] Respiratory Rate 18 18 Blood Pressure 131/82 131/82 Pulse Oximetry 100 100 Oxygen Delivery Oxygen Flow Rate 04/10/25 21:00 04/10/25 21:02 04/10/25 22:00 Temperature Pulse Rate 106 H 102 H Pulse Rate [Bilateral Pedal (Dorsalis Pedis) Palpation] Respiratory Rate Blood Pressure Pulse Oximetry 95 Oxygen Delivery Nasal Cannula Oxygen Flow Rate 2 04/10/25 23:24 04/11/25 00:00 04/11/25 00:15 Temperature 99.2 F Pulse Rate 98 95 Pulse Rate [Bilateral Pedal (Dorsalis Pedis) Palpation] Respiratory Rate 17 Blood Pressure 127/77 Pulse Oximetry 92 96 Oxygen Delivery Nasal Cannula Oxygen Flow Rate 2 04/11/25 02:00 04/11/25 03:47 04/11/25 04:00 Temperature 97.4 F L Pulse Rate 99 120 H 103 H Pulse Rate [Bilateral Pedal (Dorsalis Pedis) Palpation] Respiratory Rate 17 Blood Pressure 126/88 Pulse Oximetry 94 Oxygen Delivery Oxygen Flow Rate 04/11/25 04:10 04/11/25 06:00 04/11/25 07:46 Temperature 97.7 F Pulse Rate 110 H 68 Pulse Rate [Bilateral Pedal (Dorsalis Pedis) Palpation] Respiratory Rate 14 Blood Pressure 98/61 L Pulse Oximetry 95 99 Oxygen Delivery Nasal Cannula Oxygen Flow Rate 2 04/11/25 08:00 04/11/25 08:00 04/11/25 09:19 Temperature Pulse Rate 99 100 Pulse Rate [Bilateral Pedal (Dorsalis Pedis) Palpation] Respiratory Rate Blood Pressure Pulse Oximetry 99 Oxygen Delivery Room Air Oxygen Flow Rate 04/11/25 10:00 04/11/25 11:59 Temperature 98.8 F Pulse Rate 98 96 Pulse Rate [Bilateral Pedal (Dorsalis Pedis) Palpation] Respiratory Rate 18 Blood Pressure 94/62 L Pulse Oximetry 99 Oxygen Delivery Oxygen Flow Rate Intake/Output Intake/Output: Intake & Output 04/08/25 04/09/25 04/10/25 04/11/25 23:59 23:59 23:59 23:59 Intake Total 297.8 120 Output Total 450 150 Balance -152.2 -30 Meds/Results Medications: Active Medications Generic Name Dose Route Start Last Admin Trade Name Freq PRN Reason Stop Dose Admin Acetaminophen 650 mg 04/10/25 04:50 Acetaminophen 325 Mg Tablet PO Q4H PRN Mild Pain (1-3) or Fever Aspirin 81 mg 04/11/25 09:00 04/11/25 09:19 Aspirin 81 Mg Enteric Tablet PO 81 mg QAM GURWINDER Administration Atorvastatin Calcium 80 mg 04/11/25 09:00 04/11/25 09:19 Atorvastatin 40 Mg Tablet PO 80 mg DAILY GURWINDER Administration Carvedilol 6.25 mg 04/11/25 21:00 Carvedilol 6.25 Mg Tablet PO Q12HR GURWINDER Empagliflozin 10 mg 04/11/25 09:00 04/11/25 09:19 Empagliflozin 10 Mg Tablet PO 10 mg DAILY GURWINDER Administration Losartan Potassium 12.5 mg 04/11/25 09:00 04/11/25 09:19 Losartan Potassium 12.5 Mg Tablet PO 12.5 mg DAILY GURWINDER Administration Ondansetron HCl 4 mg 04/10/25 04:50 04/10/25 18:11 Ondansetron Inj 4 Mg/2 Ml Vial IV PUSH 4 mg Q4H PRN Administration Nausea Perflutren Lipid Microsphere 0 ml 04/10/25 04:38 Perflutren Lipid Microspheres 1.5 Ml Vial Diluted To 10 Ml Total Volume IV PUSH 04/13/25 04:38 ONCE PRN adequate visualization Protocol Ticagrelor 90 mg 04/10/25 21:00 04/11/25 09:19 Ticagrelor 90 Mg Tablet PO 90 mg Q12HR GURWINDER Administration Radiology Results: ITS Impressions Chest X-Ray 04/10/25 08:22 IMPRESSION: 1. Mild emphysema. No acute cardiopulmonary disease. Labs Labs: Laboratory Results - last 24 hr 04/10/25 04/10/25 04/11/25 03:35 06:22 03:55 WBC 14.3 H RBC 4.28 Hgb 13.3 Hct 40.0 MCV 93.5 MCH 31.1 MCHC 33.3 RDW 13.2 Plt Count 281 MPV 8.9 Immature Gran % (Auto) 0.4 Neut % (Auto) 69.9 Lymph % (Auto) 16.9 L [place] % (Auto) 12.5 H Eos % (Auto) 0.0 Baso % (Auto) 0.3 Lymph # (Auto) 2.41 [place] # (Auto) 1.8 H Eos # (Auto) 0.0 Baso # (Auto) 0.0 Abs Immat Gran (auto) 0.06 H Absolute Neuts (auto) 10.0 H Absolute Nucleated RBC 0.000 Nucleated RBC % 0.0 Sodium 139 Potassium 4.1 Chloride 108 H Carbon Dioxide 23 Anion Gap 8 BUN 15 Creatinine 0.90 Estim Creat Clear Calc 49 Estimated GFR > 60 Glucose 125 H Hemoglobin A1c 5.5 Calcium 8.8 Total Bilirubin 1.4 H AST 493 H ALT 77 H Alkaline Phosphatase 79 Total Protein 7.0 Albumin 4.0 Triglycerides 61 Cholesterol 230 H LDL Cholesterol Direct 144 HDL Direct 47
[2025-04-12] VITALS (12 sets, daily range): BP systolic 83–118; BP diastolic 48–69; PULSE 82–107; RESP 16–18; TEMP 36.8–36.9; O2SAT 97–99
--- NOTE | 2025-04-12 | ECHO_ITS ---
Patient Info Name: Vanessa Calreo Age: 60 years : 1965 Gender: Female HR: 88 bpm BP: 118 / 69 mmHg Technical Quality: Good Exam Date: 04/12/2025 9:59 AM Patient Status: I Admit Date: 04/10/2025 Exam Type: CA echo limited w contrast Limited two-dimensional transthoracic echocardiogram is performed with contrast. Staff Referring Physician: Trevor Edouard Branch Lending Officer: Tennille Darby Attending Provider: John Martinez Contrast/Agitated Saline Contrast/Ag. Saline: Definity Amount: 2.00 ml Existing IV Access: Yes IV Access Condition: patent with no signs of infiltration Summary 1. The left ventricular systolic function is moderately reduced. The left ventricular ejection fraction is visually estimated to be 35%. The entire inferoseptal, entire anteroseptal, mid to distal anterior, distal inferior, and entire apical medrano are severely hypokinetic. There is no definitive left ventricular thrombus in this study. Given severely slow flow in the apex, would recommend repeat transthoracic echocardiogram in clinic. Left Ventricle The left ventricular systolic function is moderately reduced. The left ventricular ejection fraction is visually estimated to be 35%. The entire inferoseptal, entire anteroseptal, mid to distal anterior, distal inferior, and entire apical medrano are severely hypokinetic. There is no definitive left ventricular thrombus in this study. Given severely slow flow in the apex, would recommend repeat transthoracic echocardiogram in clinic. Ventricles Name Value Normal LV Fractional Shortening/Ejection Fraction 2D/MM LV Diastolic Volume (4C MOD) 87 ml LV EF (4C MOD) 45 % LV Diastolic Volume (2C MOD) 66 ml LV EF (2C MOD) 53 % LV Diastolic Volume (BP MOD) 79 ml 46-106 LV Systolic Volume (BP MOD) 39 ml 14-42 LV EF (BP MOD) 51 % 54-74 LV Diastolic Length (4C) 7.3 cm LV Systolic Length (4C) 6.3 cm LV Stroke Volume (4C MOD) 39 ml Report Signatures
[2025-04-12] MEDS: ACETAMINOPHEN 325 MG TABLET 650 MG PO ×2 (01:59→08:47)
[2025-04-12] MEDS: MORPHINE SULFATE (*CRX) 2 MG/ML INJ 1 MG IV PUSH (04:50)
[2025-04-12] MEDS: ONDANSETRON INJ 4 MG/2 ML VIAL IV PUSH (04:56)
[2025-04-12] MEDS: LOSARTAN POTASSIUM 12.5 MG TABLET PO (08:47)
[2025-04-12] MEDS: carvediloL 6.25 MG TABLET PO (08:47)
[2025-04-12] MEDS: EMPAGLIFLOZIN 10 MG TABLET PO (08:47)
[2025-04-12] MEDS: ATORVASTATIN 40 MG TABLET 80 MG PO (08:47)
[2025-04-12] MEDS: ASPIRIN 81 MG ENTERIC TABLET PO (08:47)
[2025-04-12] MEDS: TICAGRELOR 90 MG TABLET PO (08:48)
[2025-04-12] MEDS: PERFLUTREN LIPID MICROSPHERES 1.5 ML VIAL DILUTED TO 10 ML TOTAL VOLUME IV PUSH (09:50)
--- NOTE | 2025-04-12 10:17 | PM.PNCARD ---
Progress Note: A&P Assessment and Plan (1) Acute non-ST elevation myocardial infarction (NSTEMI): Code(s): I21.4 - Non-ST elevation (NSTEMI) myocardial infarction Status: Acute (2) Ischemic cardiomyopathy: Code(s): I25.5 - Ischemic cardiomyopathy Status: Acute (3) Hyperlipidemia: Code(s): E78.5 - Hyperlipidemia, unspecified Status: Acute Plan 60-year-old woman presented with several days of chest pain prior to ER presentation now admitted for non ST elevation TN found to have occluded LAD status post PCI Non ST-elevation TN -status post PCI -aspirin 81 mg p.o. daily and Brilinta 90 mg p.o. b.i.d. Ischemic cardiomyopathy -LVEF 30-35% and will order LifeVest -continue carvedilol 6.25 mg p.o. b.i.d. and losartan 12.5 mg p.o. daily -continue Jardiance 10 mg p.o. daily -will repeat echocardiogram today to rule out LV thrombus Hyperlipidemia -atorvastatin 80 mg every evening Can be discharged today if no LV thrombus, meds to beds delivered, and LifeVest fitted Subjective Date/time seen: 04/12/25 10:17 Interval history: Doing well without any chest pain or shortness of breath. Review of Systems Cardiovascular: Cardiovascular: Reports as per HPI Respiratory: Respiratory: Reports as per HPI Exam Const: General: comfortable HENMT: Mouth: Yes moist mucous membranes Eyes: EOM: EOMs intact bilaterally Neck: Neck: no JVD Resp: Effort & Inspection: normal respiratory effort Auscultation: clear to auscultation bilaterally Cardio: Rate: regular rate Rhythm: regular rhythm GI: GI Palp: Yes Soft to palpation Neuro: Speech: normal speech Extrem: General: no pedal edema Objective Data Vital Signs Vital Signs: Vital Signs - 24 hr 04/11/25 11:59 04/11/25 12:00 04/11/25 12:00 Temperature 37.1 C Pulse Rate 96 91 Respiratory Rate 18 Blood Pressure 94/62 L Pulse Oximetry 99 99 Oxygen Delivery Room Air 04/11/25 14:00 04/11/25 16:00 04/11/25 16:00 Temperature 37.1 C Pulse Rate 92 99 Respiratory Rate 18 Blood Pressure 90/50 L Pulse Oximetry 98 98 Oxygen Delivery Room Air 04/11/25 16:00 04/11/25 18:00 04/11/25 19:54 Temperature Pulse Rate 105 H 99 Respiratory Rate Blood Pressure Pulse Oximetry 98 Oxygen Delivery Room Air 04/11/25 20:00 04/11/25 20:00 04/11/25 20:33 Temperature 37.4 C Pulse Rate 98 83 Respiratory Rate 18 Blood Pressure 82/46 L 90/51 L Pulse Oximetry 95 Oxygen Delivery 04/11/25 21:00 04/11/25 21:20 04/11/25 21:31 Temperature Pulse Rate 87 Respiratory Rate Blood Pressure 88/49 L Pulse Oximetry Oxygen Delivery Room Air 04/11/25 22:00 04/11/25 23:46 04/11/25 23:55 Temperature 37.2 C Pulse Rate 82 98 Respiratory Rate 18 Blood Pressure 95/58 L Pulse Oximetry 97 Oxygen Delivery Room Air 04/12/25 00:00 04/12/25 01:36 04/12/25 02:00 Temperature Pulse Rate 91 87 Respiratory Rate Blood Pressure 100/61 Pulse Oximetry Oxygen Delivery 04/12/25 04:00 04/12/25 04:00 04/12/25 04:10 Temperature 36.9 C Pulse Rate 98 96 Respiratory Rate 18 Blood Pressure 118/69 Pulse Oximetry 97 Oxygen Delivery Room Air 04/12/25 06:00 04/12/25 07:39 04/12/25 08:00 Temperature 36.8 C Pulse Rate 100 104 H Respiratory Rate 16 Blood Pressure 106/62 Pulse Oximetry 98 98 Oxygen Delivery Room Air 04/12/25 08:47 Temperature Pulse Rate 105 H Respiratory Rate Blood Pressure Pulse Oximetry Oxygen Delivery Intake/Output Intake/Output: Intake & Output 04/09/25 04/10/25 04/11/25 04/12/25 23:59 23:59 23:59 23:59 Intake Total 297.8 1150 360 Output Total 450 150 Balance -152.2 1000 360 Meds/Results Medications: Active Medications Generic Name Dose Route Start Last Admin Trade Name Freq PRN Reason Stop Dose Admin Acetaminophen 650 mg 04/10/25 04:50 04/12/25 08:47 Acetaminophen 325 Mg Tablet PO 650 mg Q4H PRN Administration Mild Pain (1-3) or Fever Aspirin 81 mg 04/11/25 09:00 04/12/25 08:47 Aspirin 81 Mg Enteric Tablet PO 81 mg QAM GURWINDER Administration Atorvastatin Calcium 80 mg 04/11/25 09:00 04/12/25 08:47 Atorvastatin 40 Mg Tablet PO 80 mg DAILY GURWINDER Administration Carvedilol 6.25 mg 04/11/25 21:00 04/12/25 08:47 Carvedilol 6.25 Mg Tablet PO 6.25 mg Q12HR GURWINDER Administration Empagliflozin 10 mg 04/11/25 09:00 04/12/25 08:47 Empagliflozin 10 Mg Tablet PO 10 mg DAILY GURWINDER Administration Losartan Potassium 12.5 mg 04/11/25 09:00 04/12/25 08:47 Losartan Potassium 12.5 Mg Tablet PO 12.5 mg DAILY GURWINDER Administration Ondansetron HCl 4 mg 04/10/25 04:50 04/12/25 04:56 Ondansetron Inj 4 Mg/2 Ml Vial IV PUSH 4 mg Q4H PRN Administration Nausea Perflutren Lipid Microsphere 0 ml 04/10/25 04:38 Perflutren Lipid Microspheres 1.5 Ml Vial Diluted To 10 Ml Total Volume IV PUSH 04/13/25 04:38 ONCE PRN adequate visualization Protocol Ticagrelor 90 mg 04/10/25 21:00 04/12/25 08:48 Ticagrelor 90 Mg Tablet PO 90 mg Q12HR GURWINDER Administration Radiology Results: ITS Impressions Chest X-Ray 04/10/25 08:22 IMPRESSION: 1. Mild emphysema. No acute cardiopulmonary disease.
--- NOTE | 2025-04-12 11:02 | IVDEFINITY ---
Prior to administration of IV Definity the patient was educated on the risks and benefits of the imaging enhancing agent including potential adverse side effects. The patient verbalized understanding. Allergies were verified. No exclusion criteria were identified and at least one of the following inclusion criteria were met: 1) physician request, 2) patient technically difficult to image (per the [place] [employer]chocardi[employer] guidelines of two or more segments not discernable within the apical view), or 3) questionable left ventricular function.
--- NOTE | 2025-04-12 14:25 | P.DS_ITS ---
DS: Admitting Diagnosis Discharge Date 04/12/25 Admitting Diagnosis Chest pain DS: Discharge Diagnosis Discharge Diagnosis (1) Ischemic cardiomyopathy: Code(s): I25.5 - Ischemic cardiomyopathy Status: Acute (2) Acute non-ST elevation myocardial infarction (NSTEMI): Code(s): I21.4 - Non-ST elevation (NSTEMI) myocardial infarction Status: Acute (3) ACS (acute coronary syndrome): Code(s): I24.9 - Acute ischemic heart disease, unspecified Status: Acute DS: Summary Hospital Course Hospital Course: 60 yo who presented to the ER on account of Chest pain. Noted that she has been having chest pain 2/7 described as substernal, /, cold sweats radiates to LUE and neck. Denies any abd pain, diarrhea, focal weakness, or lightheadedness. ERR eval notable for vital signs stable adn within normal limits, labs WBC 19, Troponins 0.674 now 5.79. CXR unremarkable started on Heparin infusion and aspirin prior to admission Cardiology was consulted Patiient underwent cardiac cath with PCI to LAD. ECHO showed EF 30-35% and no LV thrombus. Discharged on Lifevest, also discharged on Lipitor 80mg daily, Coreg 12.5mg, Aspirin 81mg daily, Jardiance 10mg daily, Losartan 12.5mg daily and Brilinta 90mg bid. F/u with PCP in 3-5 days F/u with cardiology as instructed Time Spent with Patient Time attestation: Total time spent providing and/or coordinating discharge services: Discharge Plan Discharge Attending physician on discharge: Rossy Headley Consulting providers: Rafael Alves Discharging Clinician: Rossy Headley Anticipated Discharge Date/Time: 04/12/25 14:20 Patient Disposition: Home Activity: as tolerated Diet: as tolerated and heart healthy Patient Instructions: Antibiotic Form Patient Language: Gabonese Stand Alone Forms: General Discharge Information Follow-up/Referrals: Dominique Scales MD [Primary Care Provider] - (F/u with PCP in 3-5 days ) Rafael Alves MD [Physician] - (F/u with cardiology as instructed ) Discharge Medications: New aspirin 81 mg tablet 81 mg PO DAILY Qty: 90 0RF atorvastatin [Lipitor] 40 mg tablet 80 mg PO HS Qty: 180 3RF carvedilol [Coreg] 6.25 mg tablet 6.25 mg PO Q12H Qty: 180 3RF Rx Instructions: must administer with a meal/food Jardiance 10 mg tablet 10 mg PO DAILY Qty: 90 3RF losartan 25 mg tablet 12.5 mg PO DAILY Qty: 45 3RF ticagrelor [Brilinta] 90 mg tablet 90 mg PO Q12H Qty: 180 3RF Continued cholecalciferol (vitamin D3) 125 mcg (5,000 unit) capsule 125 mcg PO DAILY mecobalamin (vitamin B12) 1,000 mcg tablet,chewable 1,000 mcg PO DAILY Date of admission: 04/10/25 04:50 Primary Care Provider: Dominique Scales Admitting Provider: John Martinez Attending physician on admission: John Martinez Condition: Guarded Prognosis
--- NOTE | 2025-04-12 16:31 | PC.NURSE ---
Patient's to bedside with Ilene. Medication checked. Patient discharged via w/ava Olivares RN
== END 2025-04-12 16:30 | disposition home or self-care (01) | DRG 322 ==
LOC: ANHED 04:24 → ANHIMU 07:14
PROVIDERS: Internal Medicine Cardiovascular Disease; Physician Assistant; Admitting Provider Internal Medicine; Emergency Provider Student in an Organized Health Care Education/Training Program; PCP Family Medicine; Visit Provider Internal Medicine
PROC: 4A023N7 Measurement of Cardiac Sampling and Pressure, Left Heart, Percutaneous Approach (ICD-10-PCS; CPT 93452; principal; 2025-04-10 12:05)
PROC: 027034Z Dilation of Coronary Artery, One Artery with Drug-eluting Intraluminal Device, Percutaneous Approach (ICD-10-PCS; 2025-04-10 12:05)
PROC: 027034Z Dilation of Coronary Artery, One Artery with Drug-eluting Intraluminal Device, Percutaneous Approach (ICD-10-PCS; 2025-04-10 12:05)
PROC: 027034Z Dilation of Coronary Artery, One Artery with Drug-eluting Intraluminal Device, Percutaneous Approach (ICD-10-PCS; 2025-04-10 12:05)
DX: I21.4 Non-ST elevation (NSTEMI) myocardial infarction (principal); F17.210 Nicotine dependence, cigarettes, uncomplicated; I25.10 Atherosclerotic heart disease of native coronary artery without angina pectoris; E78.5 Hyperlipidemia, unspecified; I25.5 Ischemic cardiomyopathy
CPT/HCPCS: 36415; 71046; 80053; 80061; 83036; 83690; 84484; 85025; 85610; 85730; 92978; 93005; 93306; 93308; 93458; 96374; 96375; 96376; 99291; A9270; C1725; C1753; C1760; C1769; C1874; C1887; C1894; C8924; C9600; G0269; J0583; J1644; J2003; J2250; J2270; J2305; J2405; J3010; J7030; J7040; Q9957

== ENCOUNTER 2025-04-15 11:52 | Inpatient (IN) | payer OTHER, SELFPAY ==
[2025-04-15] VITALS (18 sets, daily range): BP systolic 100–120; BP diastolic 58–96; PULSE 78–87; RESP 10–20; TEMP 36.4–37; O2SAT 98–100; BMI 22.5
--- NOTE | ~2025-04-15 | XR_ITS ---
XR chest 2V Ordering provider: Mariaa Donovan PA-C History: 60 years Female with . intermittent shortness of breath . Comparison: April 10, 2025 FINDINGS: MEDIASTINUM: The cardiac silhouette is not enlarged. Congestive christine. LUNGS: No infiltrates, effusions or pneumothorax. Prominent bronchovascular markings bilaterally. OTHER: No free air under the diaphragm. IMPRESSION: Prominent bronchovascular markings bilaterally which may indicate pneumonitis versus edema.. Clinical correlation advised. Reviewed, dictated and finalized at location A. IMPRESSION: Prominent bronchovascular markings bilaterally which may indicate pneumonitis v ersus edema.. Clinical correlation advised.
--- NOTE | ~2025-04-15 | MR_ITS ---
MR brain/brain stem wo/w con Ordering provider: Sinai Oquendo APRN History: 60 years Female with . Intermittent speech difficulty . Comparison: CT head performed yesterday. Technique: MRI brain was performed with and without contrast. 12 mL ProHance was given IV. FINDINGS: BONES: Normal. CRANIOCERVICAL JUNCTION: Tonsillar ectopia is noted which measures about 4 mm. PITUITARY: Partial empty sella turcica. MAJOR INTRACRANIAL VESSELS: Normal flow void. OPTIC NERVES AND CRANIAL NERVES VII AND VIII COMPLEXES: Grossly normal. Low position of the optic nerve is noted. BRAIN PARENCHYMA AND CSF SPACES: Mild nonspecific T2 white matter hyperintensities are seen in a stephan ateral periventricular and deep white matter distribution which are likely related to chronic ischemi c small vessel disease. Mild diffuse cortical atrophy. The brainstem and cerebellum are normal. No ac iqugmiut or chronic intracranial hemorrhage. No extra axial fluid collections. Diffusion weighted and ADC mapping images reveal lacunar left anterior limb of internal capsule with possible right thalamic and left basal ganglia infarcts.. No midline shift or mass effect. No abnormal contras t enhancement. PARANASAL SINUSES: Mild bilateral ethmoid sinus disease. MASTOIDS: Minimal effusion the left mastoid air cells. SUPERFICIAL/SURROUNDING SOFT TISSUES: Normal. IMPRESSION: 1. Acute lacunar infarct in the anterior limb of the left internal capsule. 2. Possible lacunar infarcts in the right thalamus and left basal ganglia. Clinical correlation and follow-up advised. 3. Low position of the optic , partial empty sella turcica and ectopic cerebellar tonsils which may indicate intracranial hypotension although no enhancement of the dura is seen. Clinical correlation a dvised. The nurse Judy taking care of the patient was notified with the result of the patient at 5:45 PM o n April 16, 2025. Reviewed, dictated and finalized at location A. IMPRESSION: 1. Acute lacunar infarct in the anterior limb of the left internal capsule. 2. Possible lacunar infarcts in the right thalamus and left basal ganglia. Cli nical correlation and follow-up advised. 3. Low position of the optic , partial empty sella turcica and ectopic cerebel lar tonsils which may indicate intracranial hypotension although no enhancement of the dura is seen. Clinical correlation advised. The nurse Judy taking care of the patient was notified with the result of th e patient at 5:45 PM on April 16, 2025.
--- NOTE | ~2025-04-15 | CT_ITS ---
CTA brain carotid Ordering provider: Gokul Martin III, DO History: . tia . Comparison: None. Technique: CT angiogram head and neck was performed following timed intravenous injection of contrast . Thin slice axial images and reformatted coronal images were obtained. Three dimensional reformatted images of the brain were also obtained using a [employer] workstation. Radiation reduction technique ut ilized. The dose-length product was 1654.32 mGy-cm. 100 mL Omnipaque 350 was given IV. FINDINGS: HEAD: --ANTERIOR AND MIDDLE CEREBRAL ARTERIES AND BRANCHES: Normal caliber and contour. --INTERNAL CAROTID ARTERIES: Mild atheromatous disease but no significant stenosis. No occlusion. --BASILAR ARTERY AND BRANCHES: Normal caliber and contour. No atheromatous disease. --POSTERIOR CEREBRAL ARTERIES: Normal caliber and contour --POSTERIOR COMMUNICATING ARTERIES: The right posterior communicating continues as the posterior cere bral artery. The left is not visualized which is probably related to congenital absence or small size . --ANEURYSM: None visualized. --BRAIN: Tonsillar ectopia is noted. Otherwise, normal. --BONES AND SUPERFICIAL SOFT TISSUES: Normal. --PARANASAL SINUSES AND MASTOIDS: Normal. NECK: Irregularity seen in the left transverse sinus which may be congenital or thrombosis. Clinical correl ation and further evaluation advised. --RIGHT CERVICAL CAROTID SYSTEM: Mild atheromatous disease of the carotid bulb and proximal internal carotid artery without significant stenosis. Percent stenosis per NASCET criteria is 20%. No carotid dissection. Otherwise, no significant atheromatous disease or stenosis of the cervical carotid syste m. --LEFT CERVICAL CAROTID SYSTEM: Mild atheromatous disease of the carotid bulb and proximal internal c arotid artery without significant stenosis. Percent stenosis per NASCET criteria is 0%. No carotid d issection. Otherwise, no significant atheromatous disease or stenosis of the cervical carotid system. --VERTEBRAL ARTERIES: Normal caliber and contour. --VISUALIZED AORTIC ARCH AND BRANCHING VESSELS: Mild atheromatous disease but no significant stenosis . --SOFT TISSUES: Hypodensities in the right tonsil with the largest measuring 7 mm which may be small abscess. Clinical correlation advised. Dependent atelectatic changes in the lungs. Underlying emphysematous changes. --CERVICAL SPINE: Age appropriate degenerative changes. IMPRESSION: 1. CTA head and neck. Percent stenosis per NASCET criteria is 20% on the right side. 2. Hypodensities in the right tonsil which may indicate small abscesses. 3. Irregularity of the left transverse dural sinus which may be congenital or due to thrombosis. Cli nical correlation and follow-up advised. Reviewed, dictated and finalized at location A. IMPRESSION: 1. CTA head and neck. Percent stenosis per NASCET criteria is 20% on the righ t side. 2. Hypodensities in the right tonsil which may indicate small abscesses. 3. Irregularity of the left transverse dural sinus which may be congenital or due to thrombosis. Clinical correlation and follow-up advised.
--- OUTSIDE RECORDS SUMMARY | 2025-04-15 11:58 | XMS_ITS | Clinical Summary ---
Author Organization [facility] [email or web address] Address [address] [place] [address] Care Team Providers Care Superintendent Warehouse Name Role Phone Vimal Steele MD Primary Care Provider [phone] Source Comments [facility] [email or web address],non-owned Affiliates and Associated Physician Practices is amultiple site organization consisting of ambulatory clinics and hospital sitesin [place], [place], [place] and [place]. This disclosure is being madepursuant to the Care Everywhere program and may not contain all information available regarding this patient. Last updated 18.[facility] [email or web address] Allergies No known active allergies Medications * [...] on file Legal Sex Female 10:54 AM DIGITAL ASSET SPECIALIST Gender Identity Not on file Sexual Orientation Not on file Last Filed Vital Signs Vital Sign Reading Time Taken Comments Blood Pressure 120/76 01/27/2020 3:05 PM DIGITAL ASSET SPECIALIST Pulse 80 01/27/2020 3:05 PM DIGITAL ASSET SPECIALIST Temperature 37 C (98.6 F) 01/27/2020 3:05 PM DIGITAL ASSET SPECIALIST Respiratory Rate 16 01/27/2020 3:05 PM DIGITAL ASSET SPECIALIST Oxygen Saturation 98% 01/27/2020 3:05 PM DIGITAL ASSET SPECIALIST Inhaled Oxygen Concentration - - Weight 61.2 kg (135 lb) 01/27/2020 3:05 PM DIGITAL ASSET SPECIALIST Height 167.6 cm (5' 6 ) 01/27/2020 3:05 PM DIGITAL ASSET SPECIALIST Body Mass Index 21.79 01/27/2020 3:05 PM DIGITAL ASSET SPECIALIST Plan of Treatment Health Maintenance Due Date [...] to complete [place] [id number] Care Teams Superintendent Warehouse Relationship Specialty Start Date End Date Vimal Steele MD [address] [place] [address] PCP - General Family Medicine 01/27/20
--- NOTE | 2025-04-15 12:13 | ECG_ITS ---
Test Date: 2025-04-15 12:18:34 Measurements Intervals [place] Rate: 80 P: 10 OR: 112 QRS: 93 QRSD: 133 T: 57 QT: 328 QTc: 378 Interpretive Statements SINUS RHYTHM WITH SHORT OR INTERVAL RIGHT BUNDLE BRANCH BLOCK [120+ ms QRS DURATION, UPRIGHT V1, 40+ ms S IN I/aVL/V4/V5/V6] ANTEROSEPTAL MYOCARDIAL INFARCTION , PROBABLY OLD [40+ ms Q WAVE IN V1-V4] Compared to ECG 04/10/2025 18:21:51 Sinus tachycardia no longer present Myocardial infarct finding still present Electronically Signed On 04-15-2025 14:14:10 CDT by Dennis Tolbert M.D.
--- NOTE | 2025-04-15 12:43 | ED_ITS ---
HPI - Neuro Symptoms/Deficit General Chief Complaint: Neuro Symptoms/Deficit Stated Complaint: Diff with speech since 0700-SD last week Time Seen by Provider: 04/15/25 12:30 History of Present Illness HPI Narrative: Pt had episode where she suddenly dropped what she was holding and had trouble coming up with words. This resolved quickly. She said this happened again two times and resolved. Pt had recent SD 5 days ago and had stent placed and now is on several new medicines so she is not sure if it is related to that. Pt has some mild SOB now but no CP. Pt says here SD presentation was heartburn and nausea with sweating. Pt says she does not feel like this now. Related Data Home Medications ?Medication ?Instructions ?Recorded ?Confirmed ?Last Taken ?Type cholecalciferol (vitamin D3) 125 125 mcg PO DAILY 03/20/22 04/10/25 Unknown History mcg (5,000 unit) capsule mecobalamin (vitamin B12) 1,000 1,000 mcg PO DAILY 03/20/22 04/10/25 Unknown History mcg chewable tablet atorvastatin 40 mg tablet (Lipitor) 40 mg PO HS 04/15/25 04/15/25 04/14/25 21:00 History 40 mg Allergies Allergy/AdvReac Type Severity Reaction Status Date / Time No Known Allergies Allergy Unknown Verified 04/15/25 18:47 Review of Systems 2 Review of Systems: All systems reviewed & are unremarkable except as noted in HPI and below PMFSH Past Medical History Medical History Shingles 2020 Psoriasis NSTEMI (non-ST elevated myocardial infarction) Coronary artery disease Ischemic cardiomyopathy Hyperlipidemia Irritable bowel syndrome (IBS) Surgical History Surgical History History of cholecystectomy Family History Family History Father Skin cancer Family history of elevated blood lipids Hypertension Afib Mother Family history of diabetes mellitus in first degree relative Family history of coronary artery disease Hypertension Sibling Congestive heart failure Pancreatitis Social History Social History Smoking packs per day: 0.5 Smoking cigarettes per day: 10.0 Years smoked: 40 Smoking pack-years: 20.00 Smoking status: Former smoker Tobacco type: cigarettes Alcohol intake: never Substance use: never Substance use type: does not use Do You Feel Safe in your Home?: Yes Lack of Transportation: No Lack of Food: Never True Current Housing: I Have Housing Concerned About Future Housing: No Difficulty Paying Gas/Electric Bills: YES Difficulty Paying for Meds: YES Currently Unemployed: No Education: High School Diploma/GED Difficulty w/ Childcare or Family Care: No Living arrangements: with family Occupation/Education: occupation Gender identity (if verbalized by the patient): Female Spiritual care concerns: No Exam 2 Const: General: healthy appearing and no acute distress Nutritional Appearance: well nourished Orientation/consciousness: patient oriented x3 Limitations: no limitations Eyes: Conjunctivae: conjunctivae normal Pupils: Equal, round and reactive pupils present EOM: EOMs intact bilaterally Resp: Effort & Inspection: normal respiratory effort Auscultation: clear to auscultation bilaterally Cardio: Rate: regular rate Rhythm: regular rhythm GI: GI Palp: Yes Soft to palpation and No Tenderness to palpation present (GI) Auscultation: normal bowel sounds Skin: General skin exam: normal color Rashes: no rashes Wounds: no wounds Neuro: General: patient oriented x3, moves all extremities, no focal motor deficits and CN's II-XI intact bilaterally Cranial nerves: Yes Nystagmus not present Speech: normal speech Extrem: General: normal to inspection and no clubbing, cyanosis or edema Psych: Mental Status: mental status grossly normal Affect: normal affect Attitude: cooperative Course Vital Signs Vital signs: Vital Signs Temperature 97.6 F 04/15/25 12:07 Pulse Rate 84 04/15/25 12:07 Respiratory Rate 16 04/15/25 12:07 Blood Pressure 113/68 04/15/25 12:07 Pulse Oximetry 100 04/15/25 12:07 Oxygen Delivery Room Air 04/15/25 12:07 Temperature 98.6 F 04/15/25 18:03 Pulse Rate 83 04/15/25 18:03 Respiratory Rate 16 04/15/25 18:03 Blood Pressure 106/58 L 04/15/25 18:03 Pulse Oximetry 99 04/15/25 18:03 Oxygen Delivery Room Air 04/15/25 16:16 MDM - Neuro Symptoms/Deficit MDM Narrative Medical decision making narrative: Pt had a few brief episodes of trouble coming up with words and actually dropped what she was carrying. these symptoms have resolved. Pt had nstemi 5 days ago and stent. Pt has no CP today but some sob.EKG shows nr with short pr rate 80 with rbbb and t wave changes in anteroseptal leads, reading is acute SD. EKG from04/10 showed elevation in thos leads. sent both ekg's to Dr Tolbert who does not believe this is a stemi. will do cardaic and neuro work up with CT and CTA of head. ct and cta do not show acute blockage. trop and bnp elevated. trop elevated more than 04/10. discussed with Dr Tolbert, said treat as heart failure so will give lasix and admit. discussed with Sinai Virk and agrees to admit. Lab Data 04/15/25 12:46 04/15/25 12:46 Labs: Lab Results 04/15/25 04/15/25 Range/Units 12:46 15:54 WBC 12.8 H (4.5-10.0) K/mm3 RBC 3.99 L (4.2-5.4) M/mm3 Hgb 12.2 (12.0-15.0) g/dL Hct 37.8 (37.0-47.0) % MCV 94.7 (80-100) fl MCH 30.6 (26-34) pg MCHC 32.3 (32-36) g/dl RDW 12.9 (11.5-14.5) % Plt Count 355 (150-375) k/mm3 MPV 9.8 (7.4-10.4) fl Immature Gran % (Auto) 0.5 (0-0.5) % Neut % (Auto) 63.7 (45.5-73.1) % Lymph % (Auto) 18.5 (18.3-44.2) % [place] % (Auto) 13.0 H (2.6-8.5) % Eos % (Auto) 3.7 (0-4.4) % Baso % (Auto) 0.6 (0.2-1.2) % Lymph # (Auto) 2.37 (0.9-3.2) K/mm3 [place] # (Auto) 1.7 H (0.1-0.6) K/mm3 Eos # (Auto) 0.5 H (0-0.3) K/mm3 Baso # (Auto) 0.1 (0.0-0.1) K/mm3 Abs Immat Gran (auto) 0.06 H (0.00-0.031) K/mm3 Absolute Neuts (auto) 8.2 H (1.3-6.7) K/mm3 Absolute Nucleated RBC 0.000 (0.0-0.012) K/mm3 Nucleated RBC % 0.0 (0.0-0.2) % PT 14.3 (11.1-14.7) Seconds INR 1.1 APTT 23.5 (22.3-36.8) Seconds Sodium 140 (137-145) mmol/L Potassium 3.7 (3.4-5.0) mmol/L Chloride 110 H (98-107) mmol/L Carbon Dioxide 21 L (22-30) mmol/L Anion Gap 9 (4-12) mmol/L BUN 16 (7-17) mg/dL Creatinine 0.96 (0.7-1.0) mg/dL Estim Creat Clear Calc 46 ml/min Estimated GFR 59 (59 - ) Glucose 98 (65-110) mg/dL Calcium 8.8 (8.4-10.2) mg/dL Total Bilirubin 0.8 (0.2-1.3) mg/dL AST 91 H (14-36) U/L ALT 84 H (6-35) U/L Alkaline Phosphatase 76 (38-126) U/L Troponin I 7.390 H* 7.070 H* (0.000-0.034) ng/mL NT-Pro-B Natriuret Pep 6210 H (19.9-100) pg/mL Total Protein 7.0 (6.3-8.2) g/dL Albumin 3.8 (3.5-5.1) g/dL Discharge Plan Discharge Clinical Impression: Altered awareness, transient, Elevated troponin CHF (congestive heart failure) Qualifiers: Heart failure type: combined systolic and diastolic Heart failure chronicity: a cute on chronic Qualified Code(s): I50.43 - Acute on chronic combined systolic (congestive) and diastolic (congestive) heart failure Patient Disposition: Still a Patient Condition: Stable
[2025-04-15 12:53] LABS: Basophils Absolute Auto 0.1 K/mm3 (0.0-0.1); Basophils Percent Auto 0.6 % (0.2-1.2); Eosinophils Absolute Auto 0.5 K/mm3 (0-0.3); Eosinophils Percent Auto 3.7 % (0-4.4); Hematocrit 37.8 % (37.0-47.0); Hemoglobin 12.2 g/dL (12.0-15.0); Immature Granulocyte Absolute 0.06 K/mm3 (0.00-0.031); Immature Granulocyte Percent A 0.5 % (0-0.5); Lymphocytes Absolute Auto 2.37 K/mm3 (0.9-3.2); Lymphocytes Percent Auto 18.5 % (18.3-44.2); Mean Corpuscular HGB Conc 32.3 g/dl (32-36); Mean Corpuscular Hemoglobin 30.6 pg (26-34); Mean Corpuscular Volume 94.7 fl (80-100); Mean Platelet Volume 9.8 fl (7.4-10.4); Monocytes Absolute Auto 1.7 K/mm3 (0.1-0.6); Neutrophils Absolute Auto 8.2 K/mm3 (1.3-6.7); Neutrophils Percent Auto 63.7 % (45.5-73.1); Platelet Count Result 355 k/mm3 (150-375); Red Blood Count 3.99 M/mm3 (4.2-5.4); Red Cell Distribution Width 12.9 % (11.5-14.5); White Blood Count 12.8 K/mm3 (4.5-10.0)
[2025-04-15 13:06] LABS: INR 1.1; Partial Thromboplastin Time 23.5 Seconds (22.3-36.8); Prothrombin Time 14.3 Seconds (11.1-14.7)
[2025-04-15 13:07] LABS: Alanine Aminotransferase 84 U/L (6-35); Albumin Level 3.8 g/dL (3.5-5.1); Alkaline Phosphatase 76 U/L (38-126); Anion Gap 9 mmol/L (4-12); Aspartate Amino Transferase 91 U/L (14-36); Bilirubin,Total 0.8 mg/dL (0.2-1.3); Blood Urea Nitrogen 16 mg/dL (7-17); Calcium 8.8 mg/dL (8.4-10.2); Carbon Dioxide 21 mmol/L (22-30); Chloride 110 mmol/L (98-107); Estimated CRCL calculation 46 ml/min; Estimated Glomerular Filt Rate 59; Glucose 98 mg/dL (65-110); Potassium 3.7 mmol/L (3.4-5.0); Sodium 140 mmol/L (137-145)
--- OUTSIDE RECORDS SUMMARY | 2025-04-15 13:48 | XMS_ITS | Clinical Summary ---
Author Organization [facility] [employer] Address [address] [address] Care Team Providers Care Surface Supply Breathing Apparatus Name Role Phone Vimal Steele MD Primary Care Provider [phone] Source Comments [facility] [employer],non-owned Affiliates and Associated Physician Practices is amultiple site organization consisting of ambulatory clinics and hospital sitesin [place], [place], [place] and [place]. This disclosure is being madepursuant to the Care Everywhere program and may not contain all information available regarding this patient. Last updated 18.[facility] [employer] Allergies No known active allergies Medications * [...] on file Legal Sex Female 10:54 AM ASSISTANT CASE MANAGER Gender Identity Not on file Sexual Orientation Not on file Last Filed Vital Signs Vital Sign Reading Time Taken Comments Blood Pressure 120/76 01/27/2020 3:05 PM ASSISTANT CASE MANAGER Pulse 80 01/27/2020 3:05 PM ASSISTANT CASE MANAGER Temperature 37 C (98.6 F) 01/27/2020 3:05 PM ASSISTANT CASE MANAGER Respiratory Rate 16 01/27/2020 3:05 PM ASSISTANT CASE MANAGER Oxygen Saturation 98% 01/27/2020 3:05 PM ASSISTANT CASE MANAGER Inhaled Oxygen Concentration - - Weight 61.2 kg (135 lb) 01/27/2020 3:05 PM ASSISTANT CASE MANAGER Height 167.6 cm (5' 6 ) 01/27/2020 3:05 PM ASSISTANT CASE MANAGER Body Mass Index 21.79 01/27/2020 3:05 PM ASSISTANT CASE MANAGER Plan of Treatment Health Maintenance Due Date [...] to complete [place] [id number] Care Teams Surface Supply Breathing Apparatus Relationship Specialty Start Date End Date Vimal Steele MD [address] [place] [address] PCP - General Family Medicine 01/27/20
[2025-04-15 14:42] LABS: NT Pro B Type Natriuretic Pept 6210 pg/mL (19.9-100)
--- NOTE | 2025-04-15 15:52 | ECG_ITS ---
Test Date: 2025-04-15 15:55:02 Measurements Intervals [place] Rate: 79 P: 11 VT: 100 QRS: 97 QRSD: 142 T: 77 QT: 336 QTc: 387 Interpretive Statements SINUS RHYTHM WITH SHORT VT INTERVAL RIGHT BUNDLE BRANCH BLOCK [120+ ms QRS DURATION, UPRIGHT V1, 40+ ms S IN I/aVL/V4/V5/V6] ANTERIOR INFARCT, OLD Compared to ECG 04/15/2025 12:18:34 NO SIGNIFICANT CHANGES Electronically Signed On 04-16-2025 12:37:55 CDT by Tyson Bowden M.D.
[2025-04-15] MEDS: FUROSEMIDE INJ 40 MG/4 ML VIAL IV PUSH (16:07)
--- NOTE | 2025-04-15 18:38 | PM.IMHP ---
H&P: HPI History of Present Illness Date/Time: 04/15/25 18:38 Chief Complaint: Shortness of Breath, Changes in Speech, AMS Narrative: 60 y/o F with PMH of coronary artery disease, NSTEMI s/p stent, ischemic cardiomyopathy, hyperlipidemia, and IBS presents here with shortness of breath, changes in speech, and altered mental status. The patient presents here from home on 04/15 for further evaluation of shortness of breath, difficulty with speech, and episodes of altered mental status. LKW at 6:45 a.m. She reports initially noticing a change her speech around 7:00 a.m. this morning. Speech change lasted for 5-10 minutes and would resolve without intervention. Patient's then noted that she had 4-5 episodes of confusion where she was unable to formulate sentences. Further described as inability to formulate her words without dysarthria. She denies accompanying lightheadedness, dizziness, focal weakness, focal numbness, vision changes, ataxia, or difficulty swallowing. She reports the shortness of breath started this morning. She reports no aggravated or alleviating factors. Of note, the patient was recently admitted from 04/10/2025 to 04/12/2025 for an NSTEMI. She underwent a PCI to LAD on 04/10. She was started on aspirin, Brilinta, and her Coreg was increased to 6.25 mg b.i.d.. She was continued on atorvastatin, Jardiance, and losartan. She was also placed on a LifeVest after echo results showed an EF of less than 35%. Initial VS at presentation: 97.6? F, HR 84, R 16, 113/68, and 100% on RA. ED workup showed: WBC 12.8, no anemia, INR 1.1, no significant electrolyte derangements, creatinine 0.96 and GFR 59, AST and ALT mildly elevated (down trending compared to labs drawn on 04/11), troponin 7.390 -> 7.070. BNP elevated. CXR showed prominent bronchial vascular markings bilaterally which may indicate pneumonitis versus edema. Head/neck CTA showed 20% stenosis of the right ICA, hypodensities in the right tonsil which may indicate small abscesses, irregularity of the left transverse dural sinus which may be congenital or due to thrombus. Review of Systems Review of Systems: All systems reviewed & are unremarkable except as noted in HPI and below [facility] Past Medical History Medical History Shingles 2020 Psoriasis NSTEMI (non-ST elevated myocardial infarction) Coronary artery disease Ischemic cardiomyopathy Hyperlipidemia Irritable bowel syndrome (IBS) Surgical History Surgical History History of cholecystectomy Family History Family History Father Skin cancer Family history of elevated blood lipids Hypertension Afib Mother Family history of diabetes mellitus in first degree relative Family history of coronary artery disease Hypertension Sibling Congestive heart failure Pancreatitis Social History Social History Smoking packs per day: 0.5 Smoking cigarettes per day: 10.0 Years smoked: 40 Smoking pack-years: 20.00 Smoking status: Former smoker Tobacco type: cigarettes Alcohol intake: never Substance use: never Substance use type: does not use Do You Feel Safe in your Home?: Yes Lack of Transportation: No Lack of Food: Never True Current Housing: I Have Housing Concerned About Future Housing: No Difficulty Paying Gas/Electric Bills: YES Difficulty Paying for Meds: YES Currently Unemployed: No Education: High School Diploma/GED Difficulty w/ Childcare or Family Care: No Living arrangements: with family Occupation/Education: occupation Gender identity (if verbalized by the patient): Female Spiritual care concerns: No Meds Home Medications and Allergies Home Medications ?Medication ?Instructions ?Recorded ?Confirmed ?Type cholecalciferol (vitamin D3) 125 125 mcg PO DAILY 03/20/22 04/15/25 History mcg (5,000 unit) capsule mecobalamin (vitamin B12) 1,000 1,000 mcg PO DAILY 03/20/22 04/15/25 History mcg chewable tablet aspirin 81 mg tablet 81 mg PO DAILY #90 tabs 04/12/25 04/15/25 Rx carvedilol 6.25 mg tablet (Coreg) 6.25 mg PO Q12H #180 tabs 04/12/25 04/15/25 Rx empagliflozin 10 mg tablet 10 mg PO DAILY #90 tabs 04/12/25 04/15/25 Rx (Jardiance) losartan 25 mg tablet 12.5 mg (1/2 x 25 mg) PO DAILY #45 04/12/25 04/15/25 Rx tabs ticagrelor 90 mg tablet (Brilinta) 90 mg PO Q12H #180 tabs 04/12/25 04/15/25 Rx atorvastatin 40 mg tablet (Lipitor) 40 mg PO HS 04/15/25 04/15/25 History Allergies Allergy/AdvReac Type Severity Reaction Status Date / Time No Known Allergies Allergy Unknown Verified 04/15/25 18:47 Vital Signs Vital Signs - 24 hr 04/15/25 12:07 04/15/25 12:37 04/15/25 12:51 Temperature 97.6 F Pulse Rate 84 83 78 Respiratory Rate 16 20 16 Blood Pressure 113/68 117/73 117/73 Pulse Oximetry 100 100 98 Oxygen Delivery Room Air 04/15/25 13:10 04/15/25 14:31 04/15/25 14:47 Temperature Pulse Rate 85 81 85 Respiratory Rate 13 17 Blood Pressure 105/69 100/74 Pulse Oximetry 100 Oxygen Delivery 04/15/25 15:01 04/15/25 15:31 04/15/25 15:46 Temperature Pulse Rate 84 83 79 Respiratory Rate 15 16 10 L Blood Pressure 105/72 120/84 102/73 Pulse Oximetry 100 99 100 Oxygen Delivery 04/15/25 16:00 04/15/25 16:01 04/15/25 16:16 Temperature Pulse Rate 87 87 Respiratory Rate 20 16 Blood Pressure 106/84 106/84 Pulse Oximetry 100 100 100 Oxygen Delivery Room Air 04/15/25 17:15 04/15/25 18:03 Temperature 98.6 F Pulse Rate 83 83 Respiratory Rate 15 16 Blood Pressure 115/96 H 106/58 L Pulse Oximetry 100 99 Oxygen Delivery Exam Const: General: comfortable and no acute distress Other: , female, nontoxic appearance HENMT: Face/Nose/Sinus: Normal nares present Mouth: Yes moist mucous membranes Eyes: General: appearance normal, both eyes and all related structures Sclera: sclerae normal Pupils: Equal, round and reactive pupils present EOM: EOMs intact bilaterally Resp: Effort & Inspection: normal respiratory effort Auscultation: clear to auscultation bilaterally Cardio: Rate: regular rate Rhythm: regular rhythm Other: S1-S2 present without murmur, rub, ectopy GI: Other: Abdomen soft, nondistended, nontender. Normoactive bowel sounds in all quadrants. Skin: General skin exam: normal color and no rashes or lesions noted Wounds: no wounds Neuro: Speech: normal speech Motor exam (neuro): 5/5 motor strength present throughout Sensory Exam: normal sensation Other: A&O x4. NIHSS: 0. Extrem: General: normal to inspection Psych: Mental Status: mental status grossly normal Affect: normal affect Other: Good insight and judgment, pleasant H&P: Results Labs Labs: Short CBC 04/15/25 Range/Units 12:46 WBC 12.8 H (4.5-10.0) K/mm3 Hgb 12.2 (12.0-15.0) g/dL Hct 37.8 (37.0-47.0) % Plt Count 355 (150-375) k/mm3 BMP 04/15/25 12:46 Sodium 140 Potassium 3.7 Chloride 110 H Carbon Dioxide 21 L BUN 16 Creatinine 0.96 Glucose 98 Calcium 8.8 Cardiac Enzymes 04/15/25 04/15/25 Range/Units 12:46 15:54 Troponin I 7.390 H* 7.070 H* (0.000-0.034) ng/mL Liver Function 04/15/25 Range/Units 12:46 Total Bilirubin 0.8 (0.2-1.3) mg/dL AST 91 H (14-36) U/L ALT 84 H (6-35) U/L Alkaline Phosphatase 76 (38-126) U/L Albumin 3.8 (3.5-5.1) g/dL Assessment and Plan Assessment and plan (1) Episode of change in speech: Code(s): R47.89 - Other speech disturbances Status: Acute Assessment and Plan: New deficits of intermittent expressive aphasia first discovered at 0700 on 04/15, 4-5 episodes. Last known well at 6:45 am on 04/15. - admission for observation and telemetry - not candidate for thrombolytics due to resolution - not candidate for thrombectomy, no LVO on CTA - CXR: Prominent bronchovascular markings bilaterally which may indicate pneumonitis versus edema.. Clinical correlation advised. - CTA head/neck: 1. CTA head and neck. Percent stenosis per NASCET criteria is 20% on the right side. 2. Hypodensities in the right tonsil which may indicate small abscesses. 3. Irregularity of the left transverse dural sinus which may be congenital or due to thrombosis. Clinical correlation and follow-up advised. - neurology consulted - brain MRI w/wo ordered - echo recently completed - neuro checks Q4 - monitor daily labs - lipid panel recently completed on 04/10: Triglycerides 61, cholesterol 230, LDL 144, HDL 47 -> continue atorvastatin. A1c 5.5% on 04/10. - start Plavix 75 mg PO - continue ASA 81 mg and Brilinta - consider 30 day event monitoring at discharge (2) CHF (congestive heart failure): Qualifiers: Heart failure chronicity: acute on chronic Heart failure type: combined systolic and diastolic Qualified Code(s): I50.43 - Acute on chronic combined systolic (congestive) and diastolic (congestive) heart failure Code(s): I50.9 - Heart failure, unspecified Status: Acute Assessment and Plan: - acute on chronic - BNP 6210 - echo, previous (04/12/25): The left ventricular systolic function is moderately reduced. The left ventricular ejection fraction is visually estimated to be 35%. The entire inferoseptal, entire anteroseptal, mid to distal anterior, distal inferior, and entire apical medrano are severely hypokinetic. There is no definitive left ventricular thrombus in this study. - echo, previous (04/10/25): Estimated EF 30-35%, grade 1 diastolic dysfunction, mild pulmonary hypertension. [id number] valvular disease seen, see report for full details. - not on a daily home diuretic, starting Lasix 40 mg daily IV - monitor I&Os and daily weights - trend renal function (3) Ischemic cardiomyopathy: Code(s): I25.5 - Ischemic cardiomyopathy Status: Chronic Assessment and Plan: - LVEF 30-35% on echo (04/10) - continue home medications: Carvedilol, Losartan, Jardiance (4) Coronary artery disease: Qualifiers: Associated angina: unspecified whether angina present Coronary Disease-Associated Artery/Lesion type: [place] artery [place] vs. transplanted heart: [place] heart Qualified Code(s): I25.10 - Atherosclerotic heart disease of [place] coronary artery without angina pectoris Code(s): I25.10 - Atherosclerotic heart disease of [place] coronary artery without angina pectoris Status: Chronic Assessment and Plan: - continue home medications: Aspirin, Brilinta, losartan, Jardiance, Coreg, Lipitor (5) Hyperlipidemia: Qualifiers: Hyperlipidemia type: unspecified Qualified Code(s): E78.5 - Hyperlipidemia, unspecified Code(s): E78.5 - Hyperlipidemia, unspecified Status: Chronic Assessment and Plan: - continue atorvastatin 80 mg daily Plan Diet: Heart healthy GI Prophylaxis: Not currently indicated DVT Prophylaxis: SCDs IV fluids: None Lines/Tubes: Peripheral IV Code Status: Full code Quality VTE Prophylaxis VTE prophylaxis: mechanical ordered Hospitalist [facility] Advance Care Plan I have confirmed that the patient's Advanced Care Plan is present, code status is documented, or surrogate decision maker is listed in patient medical record.: Yes Medication Reconciliation I have utilized all available resources to obtain, update and review the patients current medications (includes all prescriptions, OTC, herbals, cannabis, and nutritional supplements).: Yes
--- NOTE | 2025-04-15 18:45 | ADMGEN ---
This patient, Vanessa Calero, was admitted to IMU Room 200-0 @ 1821. Patient/family oriented to hospital policies and general routines including ID bracelet, bed and alarms, visiting hours, pain management, procedures, bathroom and other care routines, personal items, smoking policy, room service/diet, and visiting hours. no c/o pain at this time Information on how to activate the Rapid Response Team has been discussed. Patient/Family are encouraged to report perceived risks to care and to ask questions if they do not understand what they are told or what they should do.
--- NOTE | 2025-04-15 19:15 | PC.NURSE ---
Dr. Caba called and notified of consult- states he will be able to see pt on Saturday
--- NOTE | 2025-04-15 19:27 | PC.NURSE ---
LifeVest removed and sent home with
[2025-04-15] MEDS: ATORVASTATIN 40 MG TABLET PO (20:20)
[2025-04-15] MEDS: TICAGRELOR 90 MG TABLET PO (20:20)
[2025-04-15] MEDS: carvediloL 6.25 MG TABLET PO (20:21)
[2025-04-16] VITALS (18 sets, daily range): BP systolic 88–110; BP diastolic 50–58; PULSE 68–97; RESP 14–16; TEMP 36.6–36.9; O2SAT 97–100
--- NOTE | 2025-04-16 | ECHO_ITS ---
Patient Info Name: Vanessa Calero Age: 60 years : 1965 Gender: Female Technical Quality: Good Exam Date: 04/16/2025 11:13 AM Patient Status: I Admit Date: 04/15/2025 Exam Type: CA echo limited w contrast Limited two-dimensional transthoracic echocardiogram is performed with contrast. Staff Referring Physician: Sinai Oquendo Bottom Sander: Tennille Darby Attending Provider: Pacheco Mccauley MD Contrast/Agitated Saline Contrast/Ag. Saline: Definity Amount: 3.00 ml Existing IV Access: Yes IV Access Condition: patent with no signs of infiltration Summary 1. No LV thrombus. 2. The inferoseptum is hypokinetic. The apex is severely hypokinetic. The mid-distal inferior wall is hypokinetic. The mid-distal anterior wall is hypokinetic. The anteroseptum is severely hypokinetic. Left Ventricle The inferoseptum is hypokinetic. The apex is severely hypokinetic. The mid-distal inferior wall is hypokinetic. The mid-distal anterior wall is hypokinetic. The anteroseptum is severely hypokinetic. No LV thrombus. Ventricles Name Value Normal LV Fractional Shortening/Ejection Fraction 2D/MM LV Diastolic Volume (4C MOD) 104 ml LV EF (4C MOD) 43 % LV Diastolic Volume (2C MOD) 70 ml LV EF (2C MOD) 30 % LV Diastolic Volume (BP MOD) 90 ml 46-106 LV Systolic Volume (BP MOD) 54 ml 14-42 LV EF (BP MOD) 40 % 54-74 LV Diastolic Length (4C) 7.4 cm LV Systolic Length (4C) 6.6 cm LV Stroke Volume (4C MOD) 45 ml Report Signatures
[2025-04-16 04:07] LABS: Basophils Absolute Auto 0.1 K/mm3 (0.0-0.1); Basophils Percent Auto 0.7 % (0.2-1.2); Eosinophils Absolute Auto 0.5 K/mm3 (0-0.3); Eosinophils Percent Auto 3.5 % (0-4.4); Hematocrit 38.1 % (37.0-47.0); Hemoglobin 12.8 g/dL (12.0-15.0); Immature Granulocyte Absolute 0.04 K/mm3 (0.00-0.031); Immature Granulocyte Percent A 0.3 % (0-0.5); Lymphocytes Absolute Auto 2.29 K/mm3 (0.9-3.2); Lymphocytes Percent Auto 17.1 % (18.3-44.2); Mean Corpuscular HGB Conc 33.6 g/dl (32-36); Mean Corpuscular Hemoglobin 30.8 pg (26-34); Mean Corpuscular Volume 91.8 fl (80-100); Mean Platelet Volume 9.5 fl (7.4-10.4); Monocytes Absolute Auto 1.6 K/mm3 (0.1-0.6); Monocytes Percent Auto 11.8 % (2.6-8.5); Neutrophils Absolute Auto 8.9 K/mm3 (1.3-6.7); Neutrophils Percent Auto 66.6 % (45.5-73.1); Platelet Count Result 380 k/mm3 (150-375); Red Blood Count 4.15 M/mm3 (4.2-5.4); Red Cell Distribution Width 12.8 % (11.5-14.5); White Blood Count 13.4 K/mm3 (4.5-10.0)
[2025-04-16 04:18] LABS: Alanine Aminotransferase 71 U/L (6-35); Albumin Level 3.7 g/dL (3.5-5.1); Alkaline Phosphatase 80 U/L (38-126); Anion Gap 10 mmol/L (4-12); Aspartate Amino Transferase 48 U/L (14-36); Blood Urea Nitrogen 14 mg/dL (7-17); Calcium 8.7 mg/dL (8.4-10.2); Carbon Dioxide 20 mmol/L (22-30); Chloride 110 mmol/L (98-107); Estimated CRCL calculation 47 ml/min; Estimated Glomerular Filt Rate 55; Glucose 125 mg/dL (65-110); Magnesium 2.1 mg/dL (1.6-2.3); Potassium 3.2 mmol/L (3.4-5.0); Sodium 140 mmol/L (137-145)
[2025-04-16] MEDS: LOSARTAN POTASSIUM 12.5 MG TABLET PO (08:42)
[2025-04-16] MEDS: TICAGRELOR 90 MG TABLET PO ×2 (08:42→21:31)
[2025-04-16] MEDS: FUROSEMIDE INJ 40 MG/4 ML VIAL IV PUSH (08:42)
[2025-04-16] MEDS: ATORVASTATIN 40 MG TABLET PO (08:43)
[2025-04-16] MEDS: EMPAGLIFLOZIN 10 MG TABLET PO (08:43)
[2025-04-16] MEDS: carvediloL 6.25 MG TABLET PO ×2 (08:43→23:04)
[2025-04-16] MEDS: ASPIRIN 81 MG CHEWABLE TABLET PO (08:44)
--- NOTE | 2025-04-16 09:41 | PM.IMPN ---
Progress Note: A&P Assessment and Plan (1) Episode of change in speech: Code(s): R47.89 - Other speech disturbances Status: Acute Assessment and Plan: New deficits of intermittent expressive aphasia first discovered at 0700 on 04/15, 4-5 episodes. Last known well at 6:45 am on 04/15. - admission for observation and telemetry - not candidate for thrombolytics due to resolution - not candidate for thrombectomy, no LVO on CTA - CXR: Prominent bronchovascular markings bilaterally which may indicate pneumonitis versus edema.. Clinical correlation advised. - CTA head/neck: 1. CTA head and neck. Percent stenosis per NASCET criteria is 20% on the right side. 2. Hypodensities in the right tonsil which may indicate small abscesses. 3. Irregularity of the left transverse dural sinus which may be congenital or due to thrombosis. Clinical correlation and follow-up advised. - neurology consulted - brain MRI w/wo ordered - echo recently completed - neuro checks Q4 - monitor daily labs - lipid panel recently completed on 04/10: Triglycerides 61, cholesterol 230, LDL 144, HDL 47 -> continue atorvastatin. A1c 5.5% on 04/10. - continue ASA 81 mg and Brilinta - consider 30 day event monitoring at discharge (2) CHF (congestive heart failure): Qualifiers: Heart failure chronicity: acute on chronic Heart failure type: combined systolic and diastolic Qualified Code(s): I50.43 - Acute on chronic combined systolic (congestive) and diastolic (congestive) heart failure Code(s): I50.9 - Heart failure, unspecified Status: Acute Assessment and Plan: - acute on chronic - BNP 6210 - echo, previous (04/12/25): The left ventricular systolic function is moderately reduced. The left ventricular ejection fraction is visually estimated to be 35%. The entire inferoseptal, entire anteroseptal, mid to distal anterior, distal inferior, and entire apical medrano are severely hypokinetic. There is no definitive left ventricular thrombus in this study. - echo, previous (04/10/25): Estimated EF 30-35%, grade 1 diastolic dysfunction, mild pulmonary hypertension. [id number] valvular disease seen, see report for full details. - not on a daily home diuretic, starting Lasix 40 mg daily IV - monitor I&Os and daily weights - trend renal function (3) Ischemic cardiomyopathy: Code(s): I25.5 - Ischemic cardiomyopathy Status: Chronic Assessment and Plan: - LVEF 30-35% on echo (04/10) - continue home medications: Carvedilol, Losartan, Jardiance (4) Coronary artery disease: Qualifiers: Associated angina: unspecified whether angina present Coronary Disease-Associated Artery/Lesion type: [place] artery [place] vs. transplanted heart: [place] heart Qualified Code(s): I25.10 - Atherosclerotic heart disease of [place] coronary artery without angina pectoris Code(s): I25.10 - Atherosclerotic heart disease of [place] coronary artery without angina pectoris Status: Chronic Assessment and Plan: - continue home medications: Aspirin, Brilinta, losartan, Jardiance, Coreg, Lipitor (5) Hyperlipidemia: Qualifiers: Hyperlipidemia type: unspecified Qualified Code(s): E78.5 - Hyperlipidemia, unspecified Code(s): E78.5 - Hyperlipidemia, unspecified Status: Chronic Assessment and Plan: - continue atorvastatin 80 mg daily Plan Diet: Heart healthy GI Prophylaxis: Not currently indicated DVT Prophylaxis: SCDs IV fluids: None Lines/Tubes: Peripheral IV Code Status: Full code Subjective Date/time seen: 04/16/25 09:41 Interval history: During evaluation no evidence of neurological deficit. Brain MRI pending. In regards to hyperdensity in the right tonsil which may indicate small abscess ENT is consulted Review of Systems Review of Systems: All systems reviewed & are unremarkable except as noted in HPI and below Exam Const: General: comfortable and no acute distress Other: , female, nontoxic appearance HENMT: Face/Nose/Sinus: Normal nares present Mouth: Yes moist mucous membranes Eyes: General: appearance normal, both eyes and all related structures Sclera: sclerae normal Pupils: Equal, round and reactive pupils present EOM: EOMs intact bilaterally Resp: Effort & Inspection: normal respiratory effort Auscultation: clear to auscultation bilaterally Cardio: Rate: regular rate Rhythm: regular rhythm Other: S1-S2 present without murmur, rub, ectopy GI: Other: Abdomen soft, nondistended, nontender. Normoactive bowel sounds in all quadrants. Skin: General skin exam: normal color and no rashes or lesions noted Wounds: no wounds Neuro: Cranial nerves: Yes Equal, round and reactive pupils present Speech: normal speech Motor exam (neuro): 5/5 motor strength present throughout Sensory Exam: normal sensation Other: A&O x4. NIHSS: 0. Extrem: General: normal to inspection Psych: Mental Status: mental status grossly normal Affect: normal affect Other: Good insight and judgment, pleasant Objective Data Vital Signs Vital Signs: Vital Signs - 24 hr 04/15/25 12:07 04/15/25 12:37 04/15/25 12:51 Temperature 97.6 F Pulse Rate 84 83 78 Respiratory Rate 16 20 16 Blood Pressure 113/68 117/73 117/73 Pulse Oximetry 100 100 98 Oxygen Delivery Room Air 04/15/25 13:10 04/15/25 14:31 04/15/25 14:47 Temperature Pulse Rate 85 81 85 Respiratory Rate 13 17 Blood Pressure 105/69 100/74 Pulse Oximetry 100 Oxygen Delivery 04/15/25 15:01 04/15/25 15:31 04/15/25 15:46 Temperature Pulse Rate 84 83 79 Respiratory Rate 15 16 10 L Blood Pressure 105/72 120/84 102/73 Pulse Oximetry 100 99 100 Oxygen Delivery 04/15/25 16:00 04/15/25 16:01 04/15/25 16:16 Temperature Pulse Rate 87 87 Respiratory Rate 20 16 Blood Pressure 106/84 106/84 Pulse Oximetry 100 100 100 Oxygen Delivery Room Air 04/15/25 17:15 04/15/25 18:03 04/15/25 20:00 Temperature 98.6 F Pulse Rate 83 83 Respiratory Rate 15 16 Blood Pressure 115/96 H 106/58 L Pulse Oximetry 100 99 Oxygen Delivery Room Air 04/15/25 20:00 04/15/25 20:00 04/15/25 20:03 Temperature Pulse Rate 79 79 Respiratory Rate Blood Pressure Pulse Oximetry 99 Oxygen Delivery Room Air 04/15/25 20:21 04/15/25 21:42 04/16/25 00:00 Temperature 98.3 F Pulse Rate 79 78 75 Respiratory Rate 16 Blood Pressure 88/51 L Pulse Oximetry 98 Oxygen Delivery 04/16/25 00:00 04/16/25 00:00 04/16/25 02:00 Temperature Pulse Rate 74 74 68 Respiratory Rate 16 Blood Pressure Pulse Oximetry 98 Oxygen Delivery Room Air 04/16/25 04:00 04/16/25 04:00 04/16/25 04:00 Temperature 98 F Pulse Rate 80 70 70 Respiratory Rate 16 16 Blood Pressure 102/51 L Pulse Oximetry 100 100 Oxygen Delivery Room Air 04/16/25 06:00 04/16/25 07:29 04/16/25 08:00 Temperature 98.2 F Pulse Rate 80 81 Respiratory Rate 14 Blood Pressure 110/58 L Pulse Oximetry 100 Oxygen Delivery Room Air 04/16/25 08:00 04/16/25 08:43 Temperature Pulse Rate 89 97 Respiratory Rate Blood Pressure Pulse Oximetry Oxygen Delivery Intake/Output Intake/Output: Intake & Output 04/13/25 04/14/25 04/15/25 04/16/25 23:59 23:59 23:59 23:59 Intake Total 540 Output Total 825 1100 Balance -825 -560 Meds/Results Medications: Active Medications Generic Name Dose Route Start Last Admin Trade Name Freq PRN Reason Stop Dose Admin Acetaminophen 650 mg 04/15/25 16:53 Acetaminophen 325 Mg Tablet PO Q6H PRN Mild Pain (1-3) or Fever Aspirin 81 mg 04/16/25 09:00 04/16/25 08:44 Aspirin 81 Mg Chewable Tablet PO 81 mg DAILY GURWINDER Administration Atorvastatin Calcium 40 mg 04/15/25 21:00 04/16/25 08:43 Atorvastatin 40 Mg Tablet PO 40 mg HS GURWINDER Administration Carvedilol 6.25 mg 04/15/25 21:00 04/16/25 08:43 Carvedilol 6.25 Mg Tablet PO 6.25 mg Q12H GURWINDER Administration Empagliflozin 10 mg 04/16/25 09:00 04/16/25 08:43 Empagliflozin 10 Mg Tablet PO 10 mg DAILY GURWINDER Administration Furosemide 40 mg 04/16/25 09:00 04/16/25 08:42 Furosemide Inj 40 Mg/4 Ml Vial IV PUSH 40 mg DAILY GURWINDER Administration Losartan Potassium 12.5 mg 04/16/25 09:00 04/16/25 08:42 Losartan Potassium 12.5 Mg Tablet PO 12.5 mg DAILY GURWINDER Administration Ondansetron HCl 4 mg 04/15/25 16:53 Ondansetron Inj 4 Mg/2 Ml Vial IV PUSH Q6H PRN Nausea And Vomiting Ticagrelor 90 mg 04/15/25 21:00 04/16/25 08:42 Ticagrelor 90 Mg Tablet PO 90 mg Q12H GURWINDER Administration Radiology Results: ITS Impressions Chest X-Ray 04/15/25 13:45 IMPRESSION: Prominent bronchovascular markings bilaterally which may indicate pneumonitis versus edema.. Clinical correlation advised. Head/Neck CTA 04/15/25 13:51 IMPRESSION: 1. CTA head and neck. Percent stenosis per NASCET criteria is 20% on the right side. 2. Hypodensities in the right tonsil which may indicate small abscesses. 3. Irregularity of the left transverse dural sinus which may be congenital or due to thrombosis. Clinical correlation and follow-up advised. Labs Labs: Laboratory Results - last 24 hr 04/15/25 04/15/25 04/15/25 12:46 15:54 18:48 WBC 12.8 H RBC 3.99 L Hgb 12.2 Hct 37.8 MCV 94.7 MCH 30.6 MCHC 32.3 RDW 12.9 Plt Count 355 MPV 9.8 Immature Gran % (Auto) 0.5 Neut % (Auto) 63.7 Lymph % (Auto) 18.5 Pine % (Auto) 13.0 H Eos % (Auto) 3.7 Baso % (Auto) 0.6 Lymph # (Auto) 2.37 Pine # (Auto) 1.7 H Eos # (Auto) 0.5 H Baso # (Auto) 0.1 Abs Immat Gran (auto) 0.06 H Absolute Neuts (auto) 8.2 H Absolute Nucleated RBC 0.000 Nucleated RBC % 0.0 PT 14.3 INR 1.1 APTT 23.5 Sodium 140 Potassium 3.7 Chloride 110 H Carbon Dioxide 21 L Anion Gap 9 BUN 16 Creatinine 0.96 Estim Creat Clear Calc 46 Estimated GFR 59 Glucose 98 Calcium 8.8 Magnesium Total Bilirubin 0.8 AST 91 H ALT 84 H Alkaline Phosphatase 76 Troponin I 7.390 H* 7.070 H* 6.930 H* NT-Pro-B Natriuret Pep 6210 H Total Protein 7.0 Albumin 3.8 04/16/25 03:49 WBC 13.4 H RBC 4.15 L Hgb 12.8 Hct 38.1 MCV 91.8 MCH 30.8 MCHC 33.6 RDW 12.8 Plt Count 380 H MPV 9.5 Immature Gran % (Auto) 0.3 Neut % (Auto) 66.6 Lymph % (Auto) 17.1 L Pine % (Auto) 11.8 H Eos % (Auto) 3.5 Baso % (Auto) 0.7 Lymph # (Auto) 2.29 Pine # (Auto) 1.6 H Eos # (Auto) 0.5 H Baso # (Auto) 0.1 Abs Immat Gran (auto) 0.04 H Absolute Neuts (auto) 8.9 H Absolute Nucleated RBC 0.000 Nucleated RBC % 0.0 PT INR APTT Sodium 140 Potassium 3.2 L Chloride 110 H Carbon Dioxide 20 L Anion Gap 10 BUN 14 Creatinine 1.02 H Estim Creat Clear Calc 47 Estimated GFR 55 L Glucose 125 H Calcium 8.7 Magnesium 2.1 Total Bilirubin 1.0 AST 48 H ALT 71 H Alkaline Phosphatase 80 Troponin I NT-Pro-B Natriuret Pep Total Protein 7.0 Albumin 3.7 Quality VTE Prophylaxis VTE prophylaxis: mechanical ordered Hospitalist MIPS Advance Care Plan I have confirmed that the patient's Advanced Care Plan is present, code status is documented, or surrogate decision maker is listed in patient medical record.: Yes Medication Reconciliation I have utilized all available resources to obtain, update and review the patients current medications (includes all prescriptions, OTC, herbals, cannabis, and nutritional supplements).: Yes
--- NOTE | 2025-04-16 10:05 | P.CONCA_ITS ---
Assessment and Plan Assessment and plan (1) Episode of change in speech: Code(s): R47.89 - Other speech disturbances Status: Acute Plan 1. Possible TIA? 2. Acute heart failure with reduced LVEF of 30-35% / Ischemic cardiomyopathy 3. Elevated troponins 4. CAD, recent NSTEMI s/p PCI to the proximal-mid LAD with MARIA TERESA x 1 04/10/2025 5. Hyperlipidemia PLAN: -Symptoms are concerning for possible TIA. Neurology consultation is pending. Brain MRI is pending. Echocardiogram 04/12 did not show any evidence of LV thrombus, however, has severely hypokinetic LV apex with severely slow flow in the apex, which would make it higher risk for development of LV thrombus, which can result in a stroke. Will obtain a repeat limited TTE to evaluate for LV thrombus. If echo does show LV thrombus, then she will need to be on anticoagulation. Even if echo does not show LV thrombus, given hypokinetic LV apex in setting of recent MN, can consider anticoagulation for prophylaxis if she indeed did have a TIA/CVA. Will await Neurology consultation, brain MRI findings, echo results. Continue to monitor on telemetry. Will consider 30 day event monitor at time of discharge. -Appears euvolemic now. Will stop IV Lasix and start PO Lasix. -Continue ASA, Brilinta, high intensity statin. -Continue Losartan, Jardiance, Coreg. Uptitrate heart failure GDMT as tolerated. History of Present Illness History of Present Illness Consult date/time: 04/16/25 10:05 Requesting physician: Gokul Martin III, DO Consult reason: congestive heart failure Reason For Visit: CHF Narrative: Vanessa is a 60 year old female who was recently admitted to [facility] for NSTEMI and underwent PCI to the proximal-mid LAD with MARIA TERESA x 1. Echocardiogram showed LVEF 30-35% with multiple wall motion abnormalities, including severe hypokinesis of the apex. No LV thrombus was noted. She was discharged on DAPT, medical therapy for HFrEF, and Life Vest. Vanessa presented to [facility] ED yesterday due to changes in speech, shortness of breath. Had sudden onset change in speech that resolved on its own. Was confused as well. Had some shortness of breath. She denies any chest pain. Was given IV Lasix on admission, and now reports resolution of her shortness of breath. Workup here shows: Troponin of 7.390, 7.070, 6.930 NT pro BNP of 6210 CXR with prominent bronchovascular markings bilaterally which may indicate pneumonitis versus edema. Head and neck CTA shows: Percent stenosis per NASCET criteria is 20% on the right side. Hypodensities in the right tonsil which may indicate small abscesses. Irregularity of the left transverse dural sinus which may be congenital or due to thrombosis. EKG with sinus rhythm with short IN interval, RBBB, old anteroseptal infarction. Review of Systems 2 Review of Systems: All systems reviewed & are unremarkable except as noted in HPI and below (HPI) [facility] Past Medical History Medical History Shingles 2020 Psoriasis NSTEMI (non-ST elevated myocardial infarction) Coronary artery disease Ischemic cardiomyopathy Hyperlipidemia Irritable bowel syndrome (IBS) Surgical History Surgical History History of cholecystectomy Family History Family History Father Skin cancer Family history of elevated blood lipids Hypertension Afib Mother Family history of diabetes mellitus in first degree relative Family history of coronary artery disease Hypertension Sibling Congestive heart failure Pancreatitis Social History Social History Smoking packs per day: 0.5 Smoking cigarettes per day: 10.0 Years smoked: 40 Smoking pack-years: 20.00 Smoking status: Former smoker Tobacco type: cigarettes Alcohol intake: never Substance use: never Substance use type: does not use Do You Feel Safe in your Home?: Yes Lack of Transportation: No Lack of Food: Never True Current Housing: I Have Housing Concerned About Future Housing: No Difficulty Paying Gas/Electric Bills: YES Difficulty Paying for Meds: YES Currently Unemployed: No Education: High School Diploma/GED Difficulty w/ Childcare or Family Care: No Living arrangements: with family Occupation/Education: occupation Gender identity (if verbalized by the patient): Female Spiritual care concerns: No Meds Home Medications and Allergies Home Medications ?Medication ?Instructions ?Recorded ?Confirmed ?Type cholecalciferol (vitamin D3) 125 125 mcg PO DAILY 03/20/22 04/15/25 History mcg (5,000 unit) capsule mecobalamin (vitamin B12) 1,000 1,000 mcg PO DAILY 03/20/22 04/15/25 History mcg chewable tablet aspirin 81 mg tablet 81 mg PO DAILY #90 tabs 04/12/25 04/15/25 Rx carvedilol 6.25 mg tablet (Coreg) 6.25 mg PO Q12H #180 tabs 04/12/25 04/15/25 Rx empagliflozin 10 mg tablet 10 mg PO DAILY #90 tabs 04/12/25 04/15/25 Rx (Jardiance) losartan 25 mg tablet 12.5 mg (1/2 x 25 mg) PO DAILY #45 04/12/25 04/15/25 Rx tabs ticagrelor 90 mg tablet (Brilinta) 90 mg PO Q12H #180 tabs 04/12/25 04/15/25 Rx atorvastatin 40 mg tablet (Lipitor) 40 mg PO HS 04/15/25 04/15/25 History Allergies Allergy/AdvReac Type Severity Reaction Status Date / Time No Known Allergies Allergy Unknown Verified 04/15/25 18:47 Vital Signs Vital Signs - 24 hr 04/15/25 12:07 04/15/25 12:37 04/15/25 12:51 Temperature 36.4 C Pulse Rate 84 83 78 Respiratory Rate 16 20 16 Blood Pressure 113/68 117/73 117/73 Pulse Oximetry 100 100 98 Oxygen Delivery Room Air 04/15/25 13:10 04/15/25 14:31 04/15/25 14:47 Temperature Pulse Rate 85 81 85 Respiratory Rate 13 17 Blood Pressure 105/69 100/74 Pulse Oximetry 100 Oxygen Delivery 04/15/25 15:01 04/15/25 15:31 04/15/25 15:46 Temperature Pulse Rate 84 83 79 Respiratory Rate 15 16 10 L Blood Pressure 105/72 120/84 102/73 Pulse Oximetry 100 99 100 Oxygen Delivery 04/15/25 16:00 04/15/25 16:01 04/15/25 16:16 Temperature Pulse Rate 87 87 Respiratory Rate 20 16 Blood Pressure 106/84 106/84 Pulse Oximetry 100 100 100 Oxygen Delivery Room Air 04/15/25 17:15 04/15/25 18:03 04/15/25 20:00 Temperature 37.0 C Pulse Rate 83 83 Respiratory Rate 15 16 Blood Pressure 115/96 H 106/58 L Pulse Oximetry 100 99 Oxygen Delivery Room Air 04/15/25 20:00 04/15/25 20:00 04/15/25 20:03 Temperature Pulse Rate 79 79 Respiratory Rate Blood Pressure Pulse Oximetry 99 Oxygen Delivery Room Air 04/15/25 20:21 04/15/25 21:42 04/16/25 00:00 Temperature 36.8 C Pulse Rate 79 78 75 Respiratory Rate 16 Blood Pressure 88/51 L Pulse Oximetry 98 Oxygen Delivery 04/16/25 00:00 04/16/25 00:00 04/16/25 02:00 Temperature Pulse Rate 74 74 68 Respiratory Rate 16 Blood Pressure Pulse Oximetry 98 Oxygen Delivery Room Air 04/16/25 04:00 04/16/25 04:00 04/16/25 04:00 Temperature 36.6 C Pulse Rate 80 70 70 Respiratory Rate 16 16 Blood Pressure 102/51 L Pulse Oximetry 100 100 Oxygen Delivery Room Air 04/16/25 06:00 04/16/25 07:29 04/16/25 08:00 Temperature 36.8 C Pulse Rate 80 81 Respiratory Rate 14 Blood Pressure 110/58 L Pulse Oximetry 100 Oxygen Delivery Room Air 04/16/25 08:00 04/16/25 08:43 Temperature Pulse Rate 89 97 Respiratory Rate Blood Pressure Pulse Oximetry Oxygen Delivery Exam 2 Const: General: comfortable and no acute distress HENMT: Mouth: Yes moist mucous membranes Eyes: General: appearance normal, both eyes and all related structures S clera: sclerae normal Resp: Effort & Inspection: normal respiratory effort Auscultation: clear to auscultation bilaterally Cardio: Rate: regular rate Rhythm: regular rhythm Heart sounds: no murmurs Skin: General skin exam: normal color Neuro: Speech: normal speech Psych: Mental Status: mental status grossly normal Affect: normal affect Results Labs and Meds 04/16/25 03:49 04/16/25 03:49 Lab results: Cardiac Enzymes 04/15/25 04/15/25 04/15/25 Range/Units 12:46 15:54 18:48 AST 91 H (14-36) U/L Troponin I 7.390 H* 7.070 H* 6.930 H* (0.000-0.034) ng/mL 04/16/25 Range/Units 03:49 AST 48 H (14-36) U/L Troponin I (0.000-0.034) ng/mL Coagulation 04/15/25 Range/Units 12:46 PT 14.3 (11.1-14.7) Seconds APTT 23.5 (22.3-36.8) Seconds CBC 04/15/25 04/16/25 Range/Units 12:46 03:49 WBC 12.8 H 13.4 H (4.5-10.0) K/mm3 RBC 3.99 L 4.15 L (4.2-5.4) M/mm3 Hgb 12.2 12.8 (12.0-15.0) g/dL Hct 37.8 38.1 (37.0-47.0) % Plt Count 355 380 H (150-375) k/mm3 Lymph # (Auto) 2.37 2.29 (0.9-3.2) K/mm3 Ada # (Auto) 1.7 H 1.6 H (0.1-0.6) K/mm3 Eos # (Auto) 0.5 H 0.5 H (0-0.3) K/mm3 Baso # (Auto) 0.1 0.1 (0.0-0.1) K/mm3 Comprehensive Metabolic Panel 04/15/25 04/16/25 Range/Units 12:46 03:49 Sodium 140 140 (137-145) mmol/L Potassium 3.7 3.2 L (3.4-5.0) mmol/L Chloride 110 H 110 H (98-107) mmol/L Carbon Dioxide 21 L 20 L (22-30) mmol/L BUN 16 14 (7-17) mg/dL Creatinine 0.96 1.02 H (0.7-1.0) mg/dL Glucose 98 125 H (65-110) mg/dL Calcium 8.8 8.7 (8.4-10.2) mg/dL AST 91 H 48 H (14-36) U/L ALT 84 H 71 H (6-35) U/L Alkaline Phosphatase 76 80 (38-126) U/L Total Protein 7.0 7.0 (6.3-8.2) g/dL Albumin 3.8 3.7 (3.5-5.1) g/dL Intake and Output 04/15/25 04/16/25 04/16/25 23:59 07:59 15:59 Intake Total 300 240 Output Total 825 1100 Balance -825 -800 240 Intake: Oral 300 240 Output: Urine 825 1100 Patient Weight 04/16/25 23:59 Weight 59 kg
[2025-04-16] MEDS: PERFLUTREN LIPID MICROSPHERES 1.5 ML VIAL DILUTED TO 10 ML TOTAL VOLUME IV PUSH (11:15)
--- NOTE | 2025-04-16 11:37 | IVDEFINITY ---
Prior to administration of IV Definity the patient was educated on the risks and benefits of the imaging enhancing agent including potential adverse side effects. The patient verbalized understanding. Allergies were verified. No exclusion criteria were identified and at least one of the following inclusion criteria were met: 1) physician request, 2) patient technically difficult to image (per the [place] [employer] guidelines of two or more segments not discernable within the apical view), or 3) questionable left ventricular function. ?
[2025-04-17] VITALS (10 sets, daily range): BP systolic 101–108; BP diastolic 56–65; PULSE 69–86; RESP 12–18; TEMP 36.4–37.1; O2SAT 98–100
[2025-04-17] MEDS: TICAGRELOR 90 MG TABLET PO (08:38)
[2025-04-17] MEDS: ASPIRIN 81 MG CHEWABLE TABLET PO (08:39)
[2025-04-17] MEDS: EMPAGLIFLOZIN 10 MG TABLET PO (08:39)
[2025-04-17] MEDS: carvediloL 6.25 MG TABLET PO (08:39)
[2025-04-17] MEDS: LOSARTAN POTASSIUM 12.5 MG TABLET PO (08:39)
[2025-04-17] MEDS: FUROSEMIDE 40 MG TABLET PO (08:39)
--- NOTE | 2025-04-17 15:20 | P.CONNEU_ITS ---
Assessment and Plan Assessment and plan (1) Left middle cerebral artery stroke: Code(s): I63.512 - Cerebral infarction due to unspecified occlusion or stenosis of left middle cerebral artery Status: Acute (2) Acute non-ST elevation myocardial infarction (NSTEMI): Code(s): I21.4 - Non-ST elevation (NSTEMI) myocardial infarction Status: Acute Plan Her neurologic symptoms have resolved and she does not have any focal deficit. She is on dual antiplatelets and Lipitor 40 mg a day. These are being also followed by orthotics prosthetics assistant. I explained to her about the importance of giving of the smoking and staying off that. Also a risk factor management is what I would recommend at this time and if she has any further problem will re-evaluate her. I have explained to her the MRI of the brain did show an acute lacunar a horse infarct in the left side of the brain. Even though she is left handed a significant number of patients who are left-handed may still have speech area on the left side. Although the infarct identified is somewhat away from the speech area but she may have had a mix symptom the left hemisphere leading to intermittent aphasia which subsequently resolved however an acute lacunar infarct was identified in the left internal capsule. I noted that her bleed was 144 on 04/10/2025 and she was on atorvastatin 80 mg a day however she had some diarrhea which was thought to be due to side effect and hence the dose was reduced to 40 mg a day. Of course the LDL should be kept under 65 and this should be followed up closely. Consult date: 04/17/25 HPI: Vanessa Calero is a 60 year old female With history of coronary artery disease and had myocardial infarction and coronary stenting 5 days prior to admission. She had an episode of difficulty with speech intermittently lasting for 4 hours on the day of admission. This happened in the morning. Her was also present at the time of this evaluation and elucidated the history. The patient herself thinks that she was able to understand what he was saying but she could not find the words to express what she wanted to say. It should be noted the patient is left-handed. Initial CT scan and CT angiogram of the head and neck performed in the emergency room did not show any significant abnormalities. However a narrowing of 20% was noted in the right internal carotid artery. Radiologist commented about hypodensity in the right tonsil suggestive of small abscess which is good to evaluate by the ENT.MRI of brain shows acute left lacunar infarct in the left internal capsule. In addition possible lacunar infarct in right thalamus and left basal ganglia were noted by the radiologist. A question irregularity of left transverse dural sinus was noted which was thought to be either congenital or due to thrombosis. However on the MRI of the brain such abnormalities were not described by the radiologist. Patient denies any current symptoms. She is in fact feeling fairly well and has no problem speaking. The patient has been a smoker and she is to smoke half pack of here today but she stopped it about a week ago. Review of Systems 2 Review of Systems: All systems reviewed & are unremarkable except as noted in HPI and below PMFSH Past Medical History Medical History (Updated 04/17/25 @ 15:29 by Christina Caba MD) Left middle cerebral artery stroke Shingles 2020 Psoriasis NSTEMI (non-ST elevated myocardial infarction) Coronary artery disease Ischemic cardiomyopathy Hyperlipidemia Irritable bowel syndrome (IBS) Surgical History Surgical History History of cholecystectomy Family History Family History Father Skin cancer Family history of elevated blood lipids Hypertension Afib Mother Family history of diabetes mellitus in first degree relative Family history of coronary artery disease Hypertension Sibling Congestive heart failure Pancreatitis Social History Social History Smoking packs per day: 0.5 Smoking cigarettes per day: 10.0 Years smoked: 40 Smoking pack-years: 20.00 Smoking status: Former smoker Tobacco type: cigarettes Alcohol intake: never Substance use: never Substance use type: does not use Do You Feel Safe in your Home?: Yes Lack of Transportation: No Lack of Food: Never True Current Housing: I Have Housing Concerned About Future Housing: No Difficulty Paying Gas/Electric Bills: YES Difficulty Paying for Meds: YES Currently Unemployed: No Education: High School Diploma/GED Difficulty w/ Childcare or Family Care: No Living arrangements: with family Occupation/Education: occupation Gender identity (if verbalized by the patient): Female Spiritual care concerns: No Meds Home Medications and Allergies Home Medications ?Medication ?Instructions ?Recorded ?Confirmed ?Type cholecalciferol (vitamin D3) 125 125 mcg PO DAILY 03/20/22 04/15/25 History mcg (5,000 unit) capsule mecobalamin (vitamin B12) 1,000 1,000 mcg PO DAILY 03/20/22 04/15/25 History mcg chewable tablet aspirin 81 mg tablet 81 mg PO DAILY #90 tabs 04/12/25 04/15/25 Rx carvedilol 6.25 mg tablet (Coreg) 6.25 mg PO Q12H #180 tabs 04/12/25 04/15/25 Rx empagliflozin 10 mg tablet 10 mg PO DAILY #90 tabs 04/12/25 04/15/25 Rx (Jardiance) losartan 25 mg tablet 12.5 mg (1/2 x 25 mg) PO DAILY #45 04/12/25 04/15/25 Rx tabs ticagrelor 90 mg tablet (Brilinta) 90 mg PO Q12H #180 tabs 04/12/25 04/15/25 Rx atorvastatin 40 mg tablet (Lipitor) 40 mg PO HS 04/15/25 04/15/25 History Allergies Allergy/AdvReac Type Severity Reaction Status Date / Time No Known Allergies Allergy Unknown Verified 04/15/25 18:47 Vital Signs Vital Signs - 24 hr 04/16/25 15:34 04/16/25 16:00 04/16/25 16:00 Temperature 98.2 F Pulse Rate 81 90 Respiratory Rate 16 Blood Pressure 90/53 L Pulse Oximetry 98 Oxygen Delivery Room Air 04/16/25 18:00 04/16/25 19:56 04/16/25 20:00 Temperature 98.4 F Pulse Rate 90 76 75 Respiratory Rate 16 Blood Pressure 91/50 L Pulse Oximetry 97 Oxygen Delivery 04/16/25 22:00 04/16/25 23:04 04/17/25 00:00 Temperature Pulse Rate 79 88 82 Respiratory Rate Blood Pressure Pulse Oximetry Oxygen Delivery 04/17/25 00:00 04/17/25 02:00 04/17/25 04:00 Temperature 97.9 F 98.8 F Pulse Rate 81 76 80 Respiratory Rate 16 18 Blood Pressure 101/63 102/56 L Pulse Oximetry 98 99 Oxygen Delivery 04/17/25 04:00 04/17/25 06:00 04/17/25 08:00 Temperature 97.6 F Pulse Rate 69 84 79 Respiratory Rate 12 Blood Pressure 108/62 Pulse Oximetry 98 Oxygen Delivery 04/17/25 08:39 04/17/25 11:53 Temperature 97.9 F Pulse Rate 83 81 Respiratory Rate 16 Blood Pressure 108/65 Pulse Oximetry 100 Oxygen Delivery Exam 2 Const: General: cooperative, well developed and alert O rientation/consciousness: patient oriented x3 HENMT: Head: atraumatic Mouth: Yes oropharynx normal Eyes: Alignment and Position: position normal Pupils: Equal, round and reactive pupils present EOM: EOMs intact bilaterally Neck: Neck: supple Other: No carotid bruit Resp: Effort & Inspection: normal respiratory effort Cardio: Rate: regular rate Rhythm: regular rhythm Neuro: General: patient oriented x3 Cranial nerves: Yes CN's II-XII intact bilaterally, Yes facial sensation intact/muscles of mastication intact, Yes Equal, round and reactive pupils present, Yes facial symmetry and Yes Midline tongue present Cognition (Neuro): normal cognition Speech: normal speech Motor exam (neuro): 5/5 motor strength present throughout Sensory Exam: n ormal sensation Coordination: [id number] test normal and Normal rapid alternating movements of the distal upper extremity present (Neuro) Other: patient was able to understand and repeat sentences and follow two-step commands without any problem. Deep tendon reflexes did not show any asymmetry . Psych: Mental Status: mental status grossly normal Affect: normal affect Results Labs 04/16/25 03:49 04/16/25 03:49 Imaging Attestation: I personally reviewed and interpreted this imaging study as follows: ( MRI of the brain) My impression: and area of hyperintensity in DWI sequence in left basal ganglia and in the anterior limb of the internal capsule. Radiologist's impression: Same
--- NOTE | 2025-04-17 15:58 | P.PNCA_ITS ---
Progress Note: A&P Assessment and Plan (1) Ischemic cardiomyopathy: Code(s): I25.5 - Ischemic cardiomyopathy Status: Chronic (2) CHF (congestive heart failure): Qualifiers: Heart failure chronicity: acute on chronic Heart failure type: combined systolic and diastolic Qualified Code(s): I50.43 - Acute on chronic combined systolic (congestive) and diastolic (congestive) heart failure Code(s): I50.9 - Heart failure, unspecified Status: Acute (3) Coronary artery disease: Qualifiers: Coronary Disease-Associated Artery/Lesion type: [place] artery [place] vs. transplanted heart: [place] heart Associated angina: unspecified whether angina present Qualified Code(s): I25.10 - Atherosclerotic heart disease of [place] coronary artery without angina pectoris Code(s): I25.10 - Atherosclerotic heart disease of [place] coronary artery without angina pectoris Status: Chronic (4) Hyperlipidemia: Qualifiers: Hyperlipidemia type: unspecified Qualified Code(s): E78.5 - Hyperlipidemia, unspecified Code(s): E78.5 - Hyperlipidemia, unspecified Status: Chronic Plan 60-year-old woman with chronic systolic heart failure secondary to ischemic event, history of non ST-elevation CO status post PCI to occluded LAD, and hyperlipidemia presented with dysphagia found to have acute lacunar stroke Chronic systolic heart failure -given her soft blood pressure, will change her carvedilol to metoprolol succinate 25 mg p.o. daily -continue losartan 12.5 mg p.o. daily and Jardiance 10 mg p.o. daily -she should be discharged on Lasix 40 mg p.o. daily -we have discussed signs and symptoms of heart failure as well as renal injury that she should be monitoring and prompt further evaluation CAD status post PCI (non ST elevation CO with occluded LAD; likely delayed presentation) -continue aspirin 81 mg p.o. daily and Brilinta 90 mg p.o. b.i.d. Hyperlipidemia -atorvastatin 40 mg every evening -outpatient evaluation for Repatha Stroke -will have her follow-up in clinic for evaluation of 30 day Holter monitor to rule out significant atrial arrhythmias -repeat echocardiogram with contrast did not reveal LV thrombus of the given her apical akinesis and severely reduced systolic function, she is at risk for LV thrombus formation -at this time will continue dual anti-platelet therapy however can reconsider after outpatient evaluation No further inpatient cardiac workup warranted. She can follow-up in clinic. Subjective Date/time seen: 04/17/25 15:58 Interval history: Shortness of breath has resolved. Review of Systems Cardiovascular: Cardiovascular: Reports as per HPI Respiratory: Respiratory: Reports as per HPI Exam Const: General: comfortable HENMT: Mouth: Yes moist mucous membranes Eyes: EOM: EOMs intact bilaterally Neck: Neck: no JVD Resp: Effort & Inspection: normal respiratory effort Auscultation: clear to auscultation bilaterally Cardio: Rate: regular rate Rhythm: regular rhythm GI: GI Palp: Yes Soft to palpation Extrem: General: no pedal edema Objective Data Vital Signs Vital Signs: Vital Signs - 24 hr 04/16/25 16:00 04/16/25 16:00 04/16/25 18:00 Temperature Pulse Rate 90 90 Respiratory Rate Blood Pressure Pulse Oximetry Oxygen Delivery Room Air 04/16/25 19:56 04/16/25 20:00 04/16/25 22:00 Temperature 36.9 C Pulse Rate 76 75 79 Respiratory Rate 16 Blood Pressure 91/50 L Pulse Oximetry 97 Oxygen Delivery 04/16/25 23:04 04/17/25 00:00 04/17/25 00:00 Temperature 36.6 C Pulse Rate 88 82 81 Respiratory Rate 16 Blood Pressure 101/63 Pulse Oximetry 98 Oxygen Delivery 04/17/25 02:00 04/17/25 04:00 04/17/25 04:00 Temperature 37.1 C Pulse Rate 76 80 69 Respiratory Rate 18 Blood Pressure 102/56 L Pulse Oximetry 99 Oxygen Delivery 04/17/25 06:00 04/17/25 08:00 04/17/25 08:00 Temperature 36.4 C Pulse Rate 84 79 86 Respiratory Rate 12 Blood Pressure 108/62 Pulse Oximetry 98 Oxygen Delivery 04/17/25 08:39 04/17/25 10:00 04/17/25 11:53 Temperature 36.6 C Pulse Rate 83 82 81 Respiratory Rate 16 Blood Pressure 108/65 Pulse Oximetry 100 Oxygen Delivery 04/17/25 12:00 04/17/25 14:00 Temperature Pulse Rate 80 78 Respiratory Rate Blood Pressure Pulse Oximetry Oxygen Delivery Intake/Output Intake/Output: Intake & Output 04/14/25 04/15/25 04/16/25 04/17/25 23:59 23:59 23:59 23:59 Intake Total 1570 590 Output Total 825 1100 500 Balance -825 470 90 Meds/Results Medications: Active Medications Generic Name Dose Route Start Last Admin Trade Name Freq PRN Reason Stop Dose Admin Acetaminophen 650 mg 04/15/25 16:53 Acetaminophen 325 Mg Tablet PO Q6H PRN Mild Pain (1-3) or Fever Aspirin 81 mg 04/16/25 09:00 04/17/25 08:39 Aspirin 81 Mg Chewable Tablet PO 81 mg DAILY GURWINDER Administration Atorvastatin Calcium 40 mg 04/15/25 21:00 04/16/25 08:43 Atorvastatin 40 Mg Tablet PO 40 mg HS GURWINDER Administration Empagliflozin 10 mg 04/16/25 09:00 04/17/25 08:39 Empagliflozin 10 Mg Tablet PO 10 mg DAILY GURWINDER Administration Furosemide 40 mg 04/17/25 09:00 04/17/25 08:39 Furosemide 40 Mg Tablet PO 40 mg DAILY GURWINDER Administration Losartan Potassium 12.5 mg 04/16/25 09:00 04/17/25 08:39 Losartan Potassium 12.5 Mg Tablet PO 12.5 mg DAILY GURWINDER Administration Metoprolol Succinate 25 mg 04/18/25 09:00 Metoprolol Succinate Ext Rel 25 Mg Tabcr PO QAM GURWINDER Ondansetron HCl 4 mg 04/15/25 16:53 Ondansetron Inj 4 Mg/2 Ml Vial IV PUSH Q6H PRN Nausea And Vomiting Ticagrelor 90 mg 04/15/25 21:00 04/17/25 08:38 Ticagrelor 90 Mg Tablet PO 90 mg Q12H GURWINDER Administration Radiology Results: ITS Impressions Chest X-Ray 04/15/25 13:45 IMPRESSION: Prominent bronchovascular markings bilaterally which may indicate pneumonitis versus edema.. Clinical correlation advised. Head/Neck CTA 04/15/25 13:51 IMPRESSION: 1. CTA head and neck. Percent stenosis per NASCET criteria is 20% on the right side. 2. Hypodensities in the right tonsil which may indicate small abscesses. 3. Irregularity of the left transverse dural sinus which may be congenital or due to thrombosis. Clinical correlation and follow-up advised. Brain MRI 04/16/25 17:18 IMPRESSION: 1. Acute lacunar infarct in the anterior limb of the left internal capsule. 2. Possible lacunar infarcts in the right thalamus and left basal ganglia. Clinical correlation and follow-up advised. 3. Low position of the optic , partial empty sella turcica and ectopic cerebellar tonsils which may indicate intracranial hypotension although no enhan cement of the dura is seen. Clinical correlation advised. The nurse Judy taking care of the patient was notified with the result of the patient at 5:45 PM on April 16, 2025.
--- NOTE | 2025-04-17 15:58 | PM.DS ---
DS: Admitting Diagnosis Discharge Date 04/17/2025 Admitting Diagnosis Aphasia DS: Discharge Diagnosis Discharge Diagnosis (1) Episode of change in speech: Code(s): R47.89 - Other speech disturbances Status: Acute Assessment and Plan: Please refer to hospital course for brief summary New deficits of intermittent expressive aphasia first discovered at 0700 on 04/15, 4-5 episodes. Last known well at 6:45 am on 04/15. -Brain MRI:1. Acute lacunar infarct in the anterior limb of the left internal capsule. 2. Possible lacunar infarcts in the right thalamus and left basal ganglia. Clinical correlation and follow-up advised. 3. Low position of the optic , partial empty sella turcica and ectopic cerebellar tonsils which may indicate intracranial hypotension although no enhancement of the dura is seen. Clinical correlation advised. - admission for observation and telemetry - not candidate for thrombolytics due to resolution - not candidate for thrombectomy, no LVO on CTA - CXR: Prominent bronchovascular markings bilaterally which may indicate pneumonitis versus edema.. Clinical correlation advised. - CTA head/neck: 1. CTA head and neck. Percent stenosis per NASCET criteria is 20% on the right side. 2. Hypodensities in the right tonsil which may indicate small abscesses. 3. Irregularity of the left transverse dural sinus which may be congenital or due to thrombosis. Clinical correlation and follow-up advised. - neurology consulted - brain MRI w/wo ordered - echo recently completed - neuro checks Q4 - monitor daily labs - lipid panel recently completed on 04/10: Triglycerides 61, cholesterol 230, LDL 144, HDL 47 -> continue atorvastatin. A1c 5.5% on 04/10. - continue ASA 81 mg and Brilinta - consider 30 day event monitoring at discharge (2) CHF (congestive heart failure): Qualifiers: Heart failure chronicity: acute on chronic Heart failure type: combined systolic and diastolic Qualified Code(s): I50.43 - Acute on chronic combined systolic (congestive) and diastolic (congestive) heart failure Code(s): I50.9 - Heart failure, unspecified Status: Acute Assessment and Plan: - acute on chronic - BNP 6210 - echo, previous (04/12/25): The left ventricular systolic function is moderately reduced. The left ventricular ejection fraction is visually estimated to be 35%. The entire inferoseptal, entire anteroseptal, mid to distal anterior, distal inferior, and entire apical medrano are severely hypokinetic. There is no definitive left ventricular thrombus in this study. - echo, previous (04/10/25): Estimated EF 30-35%, grade 1 diastolic dysfunction, mild pulmonary hypertension. [place] valvular disease seen, see report for full details. - not on a daily home diuretic, starting Lasix 40 mg daily IV - monitor I&Os and daily weights - trend renal function (3) Ischemic cardiomyopathy: Code(s): I25.5 - Ischemic cardiomyopathy Status: Chronic Assessment and Plan: - LVEF 30-35% on echo (04/10) - continue home medications: Carvedilol, Losartan, Jardiance (4) Coronary artery disease: Qualifiers: Coronary Disease-Associated Artery/Lesion type: [place] artery [place] vs. transplanted heart: [place] heart Associated angina: unspecified whether angina present Qualified Code(s): I25.10 - Atherosclerotic heart disease of [place] coronary artery without angina pectoris Code(s): I25.10 - Atherosclerotic heart disease of [place] coronary artery without angina pectoris Status: Chronic Assessment and Plan: - continue home medications: Aspirin, Brilinta, losartan, Jardiance, Coreg, Lipitor (5) Hyperlipidemia: Qualifiers: Hyperlipidemia type: unspecified Qualified Code(s): E78.5 - Hyperlipidemia, unspecified Code(s): E78.5 - Hyperlipidemia, unspecified Status: Chronic Assessment and Plan: - continue atorvastatin 80 mg daily DS: Summary Hospital Course Hospital Course: 60 y/o F with PMH of coronary artery disease, NSTEMI s/p stent, ischemic cardiomyopathy, hyperlipidemia, and IBS presents here with shortness of breath, changes in speech, and altered mental status. The patient presents here from home on 04/15 for further evaluation of shortness of breath, difficulty with speech, and episodes of altered mental status. LKW at 6:45 a.m. She reports initially noticing a change her speech around 7:00 a.m. this morning. Speech change lasted for 5-10 minutes and would resolve without intervention. Patient's then noted that she had 4-5 episodes of confusion where she was unable to formulate sentences. Further described as inability to formulate her words without dysarthria. She denies accompanying lightheadedness, dizziness, focal weakness, focal numbness, vision changes, ataxia, or difficulty swallowing. She reports the shortness of breath started this morning. She reports no aggravated or alleviating factors. Of note, the patient was recently admitted from 04/10/2025 to 04/12/2025 for an NSTEMI. She underwent a PCI to LAD on 04/10. She was started on aspirin, Brilinta, and her Coreg was increased to 6.25 mg b.i.d.. She was continued on atorvastatin, Jardiance, and losartan. She was also placed on a LifeVest after echo results showed an EF of less than 35%. Initial VS at presentation: 97.6? F, HR 84, R 16, 113/68, and 100% on RA. ED workup showed: WBC 12.8, no anemia, INR 1.1, no significant electrolyte derangements, creatinine 0.96 and GFR 59, AST and ALT mildly elevated (down trending compared to labs drawn on 04/11), troponin 7.390 -> 7.070. BNP elevated. CXR showed prominent bronchial vascular markings bilaterally which may indicate pneumonitis versus edema. Head/neck CTA showed 20% stenosis of the right ICA, hypodensities in the right tonsil which may indicate small abscesses, irregularity of the left transverse dural sinus which may be congenital or due to thrombus. Patient underwent a brain MRI which shows acute CVA. Discussed with neurologist who agrees to discharge the patient and continuing aspirin and Brilinta and statin. Patient LDL should be kept under 65. Patient need to discuss with room service waiter/waitress and can be started on her Repatha. Patient needs a close follow-up with the room service waiter/waitress. As per Cardiology request the patient started on metoprolol 25 mg p.o. q.d. and discontinued carvedilol. Patient also will be discharged with Lasix 40 mg p.o. q.d. On the day of discharge, the patient was seen and examined. Vital signs were stable. Physical exam were stable and labs were reviewed at length. Discharge instructions, medications, and follow-up appointments were discussed with the patient at length and all day questions were answered. ER warnings were given. Status at Discharge Cognitive/behavioral status at discharge: Stable Time Spent with Patient Time attestation: Total time spent providing and/or coordinating discharge services: 45 minutes Exam Const: General: comfortable and no acute distress Other: , female, nontoxic appearance HENMT: Face/Nose/Sinus: Normal nares present Mouth: Yes moist mucous membranes Eyes: General: appearance normal, both eyes and all related structures Sclera: sclerae normal Pupils: Equal, round and reactive pupils present EOM: EOMs intact bilaterally Resp: Effort & Inspection: normal respiratory effort Auscultation: clear to auscultation bilaterally Cardio: Rate: regular rate Rhythm: regular rhythm Other: S1-S2 present without murmur, rub, ectopy GI: Other: Abdomen soft, nondistended, nontender. Normoactive bowel sounds in all quadrants. Skin: General skin exam: normal color and no rashes or lesions noted Wounds: no wounds Neuro: Cranial nerves: Yes Equal, round and reactive pupils present Speech: normal speech Motor exam (neuro): 5/5 motor strength present throughout Sensory Exam: normal sensation Other: A&O x4. NIHSS: 0. Extrem: General: normal to inspection Psych: Mental Status: mental status grossly normal Affect: normal affect Other: Good insight and judgment, pleasant DS: Data Imaging Radiologist's impression: ITS Impressions Chest X-Ray 04/15/25 13:45 IMPRESSION: Prominent bronchovascular markings bilaterally which may indicate pneumonitis versus edema.. Clinical correlation advised. Head/Neck CTA 04/15/25 13:51 IMPRESSION: 1. CTA head and neck. Percent stenosis per NASCET criteria is 20% on the right side. 2. Hypodensities in the right tonsil which may indicate small abscesses. 3. Irregularity of the left transverse dural sinus which may be congenital or due to thrombosis. Clinical correlation and follow-up advised. Brain MRI 04/16/25 17:18 IMPRESSION: 1. Acute lacunar infarct in the anterior limb of the left internal capsule. 2. Possible lacunar infarcts in the right thalamus and left basal ganglia. Clinical correlation and follow-up advised. 3. Low position of the optic , partial empty sella turcica and ectopic cerebellar tonsils which may indicate intracranial hypotension although no enhancement of the dura is seen. Clinical correlation advised. The nurse Judy taking care of the patient was notified with the result of the patient at 5:45 PM on April 16, 2025. Discharge Plan Discharge Attending physician on discharge: Abran Alamo Consulting providers: Tyson Bowden; Christina Caba Discharging Clinician: Abran Alamo Anticipated Discharge Date/Time: 04/17/25 16:08 Patient Disposition: Home Activity: as tolerated Diet: heart healthy Discharge Instructions: Patient needs smoking cessation Patient can discuss with Cardiology in regards to starting Repatha Check blood pressure 1 to 2 times a day. Record and bring into your doctor for review. Call your doctor if your blood pressure is greater than 180/110 or less than 90/45. Walk with cane or other assist device. Take precautions to avoid falls. Rise slowly from a lying or sitting position. Pause before standing or walking. Contact your doctor or call 911 and come to the Emergency Room if you have any type of trauma, lightheadedness with standing or other worrisome symptoms. Avoid NSAIDs (ibuprofen, naproxen, Aleve). Tylenol is safe to take. Follow-up with your primary care provider in 1-2 weeks. Please call for appointment. Follow-up with Cardiology and Neurology in 2-4 weeks. Please call for an appointment. Thank you for using [facility] for your health care needs. Patient Instructions: Antibiotic Form Patient Language: Georgian Stand Alone Forms: General Discharge Information Follow-up/Referrals: Dominique Scales MD [Primary Care Provider] - Christina Caba MD [Physician] - Tyson Bowden MD [Physician] - Discharge Medications: New furosemide 40 mg Tablet 40 mg PO DAILY Qty: 30 0RF metoprolol succinate [Toprol XL] 25 mg Tablet Extended Release 24 Hr 25 mg PO QAM Qty: 30 0RF Continued cholecalciferol (vitamin D3) 125 mcg (5,000 unit) capsule 125 mcg PO DAILY atorvastatin [Lipitor] 40 mg tablet 40 mg PO HS Patient Comments: pt decreased dose to 40mg starting 04/14/25 per md order aspirin 81 mg tablet 81 mg PO DAILY Qty: 90 0RF Jardiance 10 mg tablet 10 mg PO DAILY Qty: 90 3RF losartan 25 mg tablet 12.5 mg PO DAILY Qty: 45 3RF ticagrelor [Brilinta] 90 mg tablet 90 mg PO Q12H Qty: 180 3RF Discontinued mecobalamin (vitamin B12) 1,000 mcg tablet,chewable 1,000 mcg PO DAILY carvedilol [Coreg] 6.25 mg tablet 6.25 mg PO Q12H Qty: 180 3RF Rx Instructions: must administer with a meal/food Date of admission: 04/17/25 15:11 Primary Care Provider: Dominique Scales Admitting Provider: Pacheco Mccauley Attending physician on admission: Pacheco Mccauley Condition: Stable
== END 2025-04-17 16:50 | disposition home or self-care (01) | DRG 64 ==
LOC: ANHED 15:37 → ANHIMU 17:52
PROVIDERS: Physician Assistant; Student in an Organized Health Care Education/Training Program; Admitting Provider Family Medicine; Emergency Provider Emergency Medicine; PCP Family Medicine; Visit Provider General Practice
DX: I63.512 Cerebral infarction due to unspecified occlusion or stenosis of left middle cerebral artery (principal); I21.4 Non-ST elevation (NSTEMI) myocardial infarction; I50.43 Acute on chronic combined systolic (congestive) and diastolic (congestive) heart failure; I25.10 Atherosclerotic heart disease of native coronary artery without angina pectoris; I25.5 Ischemic cardiomyopathy; E78.5 Hyperlipidemia, unspecified; K58.9 Irritable bowel syndrome, unspecified; R47.89 Other speech disturbances; Z87.891 Personal history of nicotine dependence; Z95.5 Presence of coronary angioplasty implant and graft; Z79.82 Long term (current) use of aspirin
CPT/HCPCS: 36415; 70496; 70498; 70553; 71046; 80053; 83735; 83880; 84484; 85025; 85610; 85730; 93005; 93308; 96374; 96375; 96376; 99285; A9270; A9579; C8924; G0378; J1938; Q9957; Q9967